=== PATIENT | male | born 1960 | race Caucasian/White ===

== ENCOUNTER 2020-01-14 18:18 | Observation (INO) ==
[2020-01-14 18:44] LABS: Basophils # (auto) 0.06 K/uL (0-0.2); Basophils % (auto) 0.4 %; Eosinophils # (auto) 0.45 K/uL (0-0.5); Eosinophils % (auto) 3.1 %; Hematocrit (blood only) 40.5 % (42-52); Immature Granulocytes # (auto) 0.04 K/uL (0.00-0.02); Immature Granulocytes % (auto) 0.3 %; Lymphocytes # (auto) 4.22 K/uL (1.2-3.4); Mean Corpuscular Hgb Conc 34.6 g/dL (32-36); Mean Corpuscular Volume 95.5 fL (80-100); Mean Platelet Volume 9.5 fL (7.4-10.4); Monocytes # (auto) 0.46 K/uL (0.11-0.59); Monocytes % (auto) 3.2 %; Neutrophils # (auto) 9.33 K/uL (1.4-6.5); Platelet Count 420 K/uL (130-400); RDW Coefficient of Variation 13.5 % (11.5-14.5); RDW Standard Deviation 46.7 fL (36.4-46.3); Red Blood Count 4.24 M/uL (4.7-6.1); White Blood Count 14.56 K/uL (4.8-10.8)
[2020-01-14] MEDS ORDERED: SODIUM CHLORIDE 0.9% 500 ML IV SCH (18:45)
[2020-01-14 19:00] LABS: Partial Thromboplastin Ratio 0.9; Partial Thromboplastin Time 26.3 Seconds (21.0-31.0); Prothrombin Time 10.2 Seconds (9.0-12.0)
[2020-01-14 19:01] LABS: Alanine Aminotransferase 16 U/L (12-78); Aspartate Aminotransferase 15 U/L (15-37); Blood Urea Nitrogen 16 mg/dl (7-18); Calcium 8.9 mg/dl (8.5-10.1); Carbon Dioxide 22 mmol/L (21-32); Chloride 107 mmol/L (98-107); Creatinine Clr Calc Pharmacy 70.5 ml/min; Est GFR (African American) 79.7; Est GFR (Non-African American) 68.8; Glucose 107 mg/dl (70-99); Magnesium 2.1 mg/dl (1.8-2.4); Potassium 3.7 mmol/L (3.5-5.1); Sodium 139 mmol/L (136-145)
--- NOTE | 2020-01-14 19:05 | XRay Report ---
SINGLE VIEW CHEST CLINICAL HISTORY: Generalized weakness. FINDINGS: An AP, portable, upright chest radiograph is compared to study dated 04/25/2019. The examina tion is degraded by portable technique and patient rotation. The cardiomediastinal silhouette is un remarkable. Chronic interstitial thickening is similar to previous. Emphysema is suspected. Apical sc arring is observed. There is bibasilar scarring/atelectasis. No airspace consolidation or large pleur al effusion is identified. No pneumothorax is seen. The bony thorax is grossly intact. IMPRESSION: No acute cardiopulmonary abnormality. ACT 112: Negative or not required by law. Electronically signed by: Joe Marin M.D. 01/14/2020 7:04 PM
[2020-01-14 19:12] LABS: Albumin Globulin Ratio 1.3 (0.9-2); Alkaline Phosphatase 88 U/L (45-117); Bilirubin,Total 0.5 mg/dl (0.2-1); Creatine Kinase 136 U/L (39-308); Globulin 3.1 gm/dl (2.5-4.0); Total Protein 7.1 gm/dl (6.4-8.2); Troponin I < 0.015 ng/ml (0-0.045)
[2020-01-14 19:16] LABS: RBC Morphology Unremarkable
--- NOTE | 2020-01-14 19:52 | Emergency Department Note ---
Impression & Plan Weakness, Cervical disc disease, Cervical disc herniation ED Provider Note NAME: ROSALIE HUYNH AGE: 59 SEX: M : 1960 ARRIVES VIA: Walk-In INFORMANT: Patient, ED PROVIDER(S): Neto Atkins DO CHIEF COMPLAINT: Weakness HPI: The patient is a 59-year-old male who presented to the emergency department for an evaluation of generalized weakness. The patient was brought directly back from triage for concerns of possible stroke however the patient appears to have generalized weakness in both upper and lower extremities. The patient has a known history of cervical disc disease. His significant other gives part of the history and states that he was walking normally when he had an acute change in his strength. He was on the ground and unable to stand. The patient does not remember the exact episode and may have had a syncopal episode. He denies having any headache. He denies having any chest pain or difficulty breathing. He denies having any low back pain but does have neck pain. He complains of generalized weakness. He denies having any specific burning or paresthesias but does state that his arms and legs just "does not feel right". The patient states his symptoms have been constant ever since onset. He has not had similar symptoms in the past. He denies having any fever. He denies having any recent trauma. ROS: See above HPI for pertinent positives & negatives. A total of 10 systems reviewed and were otherwise negative. PAST MEDICAL HISTORY: See Below PAST SURGICAL HISTORY: See Below FAMILY HISTORY: See Below SOCIAL HISTORY: See Below HOME MEDICATIONS: See Below ALLERGIES: See Below VITALS: See Below PHYSICAL EXAMINATION: GENERAL: The patient is awake and alert. He is very anxious appearing and appears to be uncomfortable. EYES: The conjunctivae are clear. The pupils are round and reactive. EARS, NOSE, MOUTH AND THROAT: The nose is without any evidence of any deformity. Mucous membranes are moist. Tongue is midline. NECK: There is cervical spine tenderness in the midline low cervical spine. RESPIRATORY: Normal respiratory effort is noted there is no evidence of wheezing rhonchi or rales CARDIOVASCULAR: Regular rate and rhythm noted there no murmurs rubs or gallops normal S1 normal S2. GASTROINTESTINAL: The abdomen is soft. Abdomen is nontender. MUSCULOSKELETAL/EXTREMITIES: There is no evidence of gross deformity full range of motion is noted in the hips and shoulders. SKIN: There is no obvious evidence of any rash. There are no petechiae, pallor or cyanosis noted. NEUROLOGIC: Patient is awake alert and oriented x3. 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 Patient has bilateral drift. No facial droop was noted. Patellar tendon reflexes are absent bilaterally. Patient is able to hold each leg off the bed for less than 5 seconds. MEDICAL DECISION MAKING: The patient is a 59-year-old male who presented to the emergency department for an evaluation of generalized weakness. The patient had weakness in both upper and lower extremities. The patient has a history of cervical disc disease. He is scheduled for a follow-up appointment and surgery with Dr. Govea for cervical disc disease. This evening he had a very significant episode where he had overall body weakness in the upper and lower extremities. He was brought back to the room immediately for possible stroke. The patient was treated with Decadron in the emergency department. The patient's case was discussed with the on-call [facility] hospitalist. They will evaluate the patient in the emergency department for further management and disposition. Ultimately the patient may require evaluation by orthopedic spine and possible surgical intervention. Triage Nursing notes reviewed. Prior medical records reviewed Vital Signs: reviewed and remarkable for pretension Differential diagnosis: Infection, dehydration, metabolic abnormality, hypo/hyperglycemia, electrolyte disturbance, anemia, hypoxia, cardiac sources, intracerebral event, toxicologic, neurologic, as well as other pathologies. ER treatment provided: See below Diagnostics interpreted by me: ECG: EKG was obtained in the emergency department. My interpretation is normal sinus rhythm at 90 bpm. There was no ectopy. There is no acute ST segment abnormalities noted. This was compared to a tracing from 04/25/2019. No signi ficant changes were noted. Cardiac Monitoring: An order was placed for continuous cardiac monitoring. The monitor shows a rate of 82 with sinus rhythm. Laboratory studies: As stated above and show below. Imaging studies: See below Consultation(s): [id number]: I discussed this case with Dr. Bateman. He will evaluate the patient in the emergency department for further management and disposition. ED COURSE: Procedures: none PDMP:reviewed and no issues Critical Care: None Past Med/Surg History Medical History Anxiety Cardiac murmur does not follow w/ cardio; no echo COPD (chronic obstructive pulmonary disease) no INH Current smoker 2 ppd GERD (gastroesophageal reflux disease) Glaucoma History of migraine HTN (hypertension) Surgical History History of eyelid surgery History of surgery mult benign tumors removed from neck History of surgery benign growth removed from RLE History of tooth extraction History of vocal cord polypectomy Family History Father Cancer Myocardial infarction Social History Smoking Status: Current every day smoker packs per day: 2; Cigarettes Per Day: 40; Second Hand Exposure: Yes; Do You Dip or Chew Tobacco: No; Tobacco Cessation Education Requested by Patient: No Hx Alcohol Use: No Hx Substance Use: No Preferred Language: Puerto Rican Communication Ability: Effective 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 Beliefs That Will Affect Care: None Current Living Situation: Spouse Feels Safe at Home: Yes Safety Concerns: Feels Safe At This Time Allergies Allergies Allergy/AdvReac Type Severity Reaction Status Date / Time No Known Allergies Allergy Verified 01/14/20 19:24 Home Meds Home Medications Medication Instructions Recorded Confirmed latanoprost 1 drp OPB HS 04/25/19 01/14/20 omeprazole 20 mg PO QAM 04/25/19 01/14/20 timolol maleate 1 drp OPL QAM 04/25/19 01/14/20 lisinopril 30 mg PO QAM 01/10/20 01/14/20 acetaminophen [Tylenol 8 Hour] 650 mg PO DIRECTED PRN 01/14/20 01/14/20 gabapentin 300 mg PO HS 01/14/20 01/14/20 ibuprofen [Advil] 400 mg PO Q6H PRN 01/14/20 01/14/20 Previous Rx's Medication Instructions Recorded methylprednisolone See Rx Instructions .ROUTE 01/15/20 .COMPLEX #23 tab Results & Data (ED) Vital Signs Vital Signs - 24 hr 01/14/20 18:26 01/14/20 18:52 01/14/20 18:54 Temperature 36.6 C Temperature Source Oral Pulse Rate 100 H 87 Pulse Rate [Apical] 92 H Pulse Rate from SpO2 Sensor 87 Pulse Rhythm Regular Pulse Strength Normal Respiratory Rate 18 18 25 H Respiratory Effort / Characteristics Non-Labored Spontaneous Respiratory Depth Normal Respiratory Pattern Regular Blood Pressure 117/81 129/82 Blood Pressure [Left Arm] 129/82 Blood Pressure [Right Arm] Blood Pressure Mean 93 96 Blood Pressure Mean [Left Arm] 97 Blood Pressure Mean [Right Arm] Blood Pressure Position Sitting Pulse Oximetry 95 95 95 Oxygen Delivery Method Room Air Sepsis Recent Fever Within 48 Hours No Sepsis New/Unexplained Change in Mental Status N/A Sepsis Action Taken by Nursing No Action Required 01/14/20 19:00 01/14/20 19:30 01/14/20 20:00 Temperature Temperature Source Pulse Rate 87 85 Pulse Rate [Apical] Pulse Rate from SpO2 Sensor 88 84 79 Pulse Rhythm Pulse Strength Respiratory Rate 21 18 Respiratory Effort / Characteristics Respiratory Depth Respiratory Pattern Blood Pressure 124/80 130/83 142/87 H Blood Pressure [Left Arm] Blood Pressure [Right Arm] Blood Pressure Mean 85 90 96 Blood Pressure Mean [Left Arm] Blood Pressure Mean [Right Arm] Blood Pressure Position Pulse Oximetry 95 95 96 Oxygen Delivery Method Room Air Sepsis Recent Fever Within 48 Hours Sepsis New/Unexplained Change in Mental Status Sepsis Action Taken by Nursing 01/14/20 21:33 Temperature Temperature Source Pulse Rate Pulse Rate [Apical] 85 Pulse Rate from SpO2 Sensor Pulse Rhythm Pulse Strength Respiratory Rate 18 Respiratory Effort / Characteristics Respiratory Depth Respiratory Pattern Blood Pressure Blood Pressure [Left Arm] Blood Pressure [Right Arm] 154/98 H Blood Pressure Mean Blood Pressure Mean [Left Arm] Blood Pressure Mean [Right Arm] 116 Blood Pressure Position Pulse Oximetry 96 Oxygen Delivery Method Room Air Sepsis Recent Fever Within 48 Hours Sepsis New/Unexplained Change in Mental Status Sepsis Action Taken by [facility] Medications Current Medication List: was personally reviewed by me Laboratory Data Attestation: I reviewed the patient's lab results. Result diagrams: 01/14/20 18:35 01/14/20 18:35 Lab Results 01/14/20 01/14/20 01/14/20 Range/Units 18:35 18:35 18:35 WBC 14.56 H (4.8-10.8) K/uL RBC 4.24 L (4.7-6.1) M/uL Hgb 14.0 (14.0-18.0) g/dL Hct 40.5 L (42-52) % MCV 95.5 (80-100) fL MCH 33.0 (25-34) pg MCHC 34.6 (32-36) g/dL RDW Std Deviation 46.7 H (36.4-46.3) fL RDW Coeff of Ryan 13.5 (11.5-14.5) % Plt Count 420 H (130-400) K/uL MPV 9.5 (7.4-10.4) fL Immature Gran % (Auto) 0.3 % Neut % (Auto) 64.0 % Lymph % (Auto) 29.0 % [place] % (Auto) 3.2 % Eos % (Auto) 3.1 % Baso % (Auto) 0.4 % Neut # (Auto) 9.33 H (1.4-6.5) K/uL Lymph # (Auto) 4.22 H (1.2-3.4) K/uL [place] # (Auto) 0.46 (0.11-0.59) K/uL Eos # (Auto) 0.45 (0-0.5) K/uL Baso # (Auto) 0.06 (0-0.2) K/uL Immature Gran # (Auto) 0.04 H (0.00-0.02) K/uL RBC Morphology Unremarkable ESR (0-14) mm/hr PT 10.2 (9.0-12.0) Seconds INR 1.0 (0.9-1.1) APTT 26.3 (21.0-31.0) Seconds PTT Ratio 0.9 Sodium 139 (136-145) mmol/L Potassium 3.7 (3.5-5.1) mmol/L Chloride 107 (98-107) mmol/L Carbon Dioxide 22 (21-32) mmol/L Anion Gap 10.0 (3-11) BUN 16 (7-18) mg/dl Creatinine 1.15 (0.6-1.4) mg/dl Est Cr Clr Drug Dosing 70.5 ml/min Est GFR ( Amer) 79.7 Est GFR (Non-Af Amer) 68.8 BUN/Creatinine Ratio 14.0 (10-20) Glucose 107 H (70-99) mg/dl Calcium 8.9 (8.5-10.1) mg/dl Magnesium 2.1 (1.8-2.4) mg/dl Total Bilirubin 0.5 (0.2-1) mg/dl AST 15 (15-37) U/L ALT 16 (12-78) U/L Alkaline Phosphatase 88 (45-117) U/L Total Creatine Kinase 136 (39-308) U/L Troponin I < 0.015 (0-0.045) ng/ml C-Reactive Protein (0-0.29) mg/dl Total Protein 7.1 (6.4-8.2) gm/dl Albumin 4.0 (3.4-5.0) gm/dl Globulin 3.1 (2.5-4.0) gm/dl Albumin/Globulin Ratio 1.3 (0.9-2) Procalcitonin (0-0.5) ng/ml TSH 1.980 (0.300-4.500) uIu/ml Hepatitis C Ab Screen (Neg) 01/14/20 01/14/20 01/14/20 Range/Units 18:35 18:35 18:35 WBC (4.8-10.8) K/uL RBC (4.7-6.1) M/uL Hgb (14.0-18.0) g/dL Hct (42-52) % MCV (80-100) fL MCH (25-34) pg MCHC (32-36) g/dL RDW Std Deviation (36.4-46.3) fL RDW Coeff of Ryan (11.5-14.5) % Plt Count (130-400) K/uL MPV (7.4-10.4) fL Immature Gran % (Auto) % Neut % (Auto) % Lymph % (Auto) % [place] % (Auto) % Eos % (Auto) % Baso % (Auto) % Neut # (Auto) (1.4-6.5) K/uL Lymph # (Auto) (1.2-3.4) K/uL [place] # (Auto) (0.11-0.59) K/uL Eos # (Auto) (0-0.5) K/uL Baso # (Auto) (0-0.2) K/uL Immature Gran # (Auto) (0.00-0.02) K/uL RBC Morphology ESR 8 (0-14) mm/hr PT (9.0-12.0) Seconds INR (0.9-1.1) APTT (21.0-31.0) Seconds PTT Ratio Sodium (136-145) mmol/L Potassium (3.5-5.1) mmol/L Chloride (98-107) mmol/L Carbon Dioxide (21-32) mmol/L Anion Gap (3-11) BUN (7-18) mg/dl Creatinine (0.6-1.4) mg/dl Est Cr Clr Drug Dosing ml/min Est GFR ( Amer) Est GFR (Non-Af Amer) BUN/Creatinine Ratio (10-20) Glucose (70-99) mg/dl Calcium (8.5-10.1) mg/dl Magnesium (1.8-2.4) mg/dl Total Bilirubin (0.2-1) mg/dl AST (15-37) U/L ALT (12-78) U/L Alkaline Phosphatase (45-117) U/L Total Creatine Kinase (39-308) U/L Troponin I (0-0.045) ng/ml C-Reactive Protein < 0.29 (0-0.29) mg/dl Total Protein (6.4-8.2) gm/dl Albumin (3.4-5.0) gm/dl Globulin (2.5-4.0) gm/dl Albumin/Globulin Ratio (0.9-2) Procalcitonin < 0.05 (0-0.5) ng/ml TSH (0.300-4.500) uIu/ml Hepatitis C Ab Screen (Neg) 01/14/20 Range/Units 18:35 WBC (4.8-10.8) K/uL RBC (4.7-6.1) M/uL Hgb (14.0-18.0) g/dL Hct (42-52) % MCV (80-100) fL MCH (25-34) pg MCHC (32-36) g/dL RDW Std Deviation (36.4-46.3) fL RDW Coeff of Ryan (11.5-14.5) % Plt Count (130-400) K/uL MPV (7.4-10.4) fL Immature Gran % (Auto) % Neut % (Auto) % Lymph % (Auto) % [place] % (Auto) % Eos % (Auto) % Baso % (Auto) % Neut # (Auto) (1.4-6.5) K/uL Lymph # (Auto) (1.2-3.4) K/uL [place] # (Auto) (0.11-0.59) K/uL Eos # (Auto) (0-0.5) K/uL Baso # (Auto) (0-0.2) K/uL Immature Gran # (Auto) (0.00-0.02) K/uL RBC Morphology ESR (0-14) mm/hr PT (9.0-12.0) Seconds INR (0.9-1.1) APTT (21.0-31.0) Seconds PTT Ratio Sodium (136-145) mmol/L Potassium (3.5-5.1) mmol/L Chloride (98-107) mmol/L Carbon Dioxide (21-32) mmol/L Anion Gap (3-11) BUN (7-18) mg/dl Creatinine (0.6-1.4) mg/dl Est Cr Clr Drug Dosing ml/min Est GFR ( Amer) Est GFR (Non-Af Amer) BUN/Creatinine Ratio (10-20) Glucose (70-99) mg/dl Calcium (8.5-10.1) mg/dl Magnesium (1.8-2.4) mg/dl Total Bilirubin (0.2-1) mg/dl AST (15-37) U/L ALT (12-78) U/L Alkaline Phosphatase (45-117) U/L Total Creatine Kinase (39-308) U/L Troponin I (0-0.045) ng/ml C-Reactive Protein (0-0.29) mg/dl Total Protein (6.4-8.2) gm/dl Albumin (3.4-5.0) gm/dl Globulin (2.5-4.0) gm/dl Albumin/Globulin Ratio (0.9-2) Procalcitonin (0-0.5) ng/ml TSH (0.300-4.500) uIu/ml Hepatitis C Ab Screen Neg (Neg) Administered Medications Discontinued Medications Dexamethasone (Decadron) 10 mg IV NOW STA Stop: 01/14/20 21:05 Last Admin: 01/14/20 21:34 Dose: 10 mg Documented by: [id number] Heparin Sodium (Porcine) (Heparin Sodium (Porcine)) 5,000 units SQ Q12 [facility]AMAINE Stop: 02/14/20 08:59 Last Admin: 01/15/20 09:00 Dose: Not Given Documented by: [id number] Sodium Chloride (Nss) 500 mls @ 999 mls/hr IV .Q31M [facility]AMAINE Stop: 01/14/20 19:15 Last Infusion: 01/14/20 19:27 Dose: 0 mls/hr Documented by: [id number] Admin: 01/14/20 18:56 Dose: 999 mls/hr Documented by: [id number] Famotidine 20 mg/ Syringe 5 mls @ 2.5 mls/min IV Q12H [facility]AMAINE Stop: 02/14/20 08:59 Last Admin: 01/15/20 09:04 Dose: 2.5 mls/min Documented by: [id number] Potassium Chloride/Sodium Chloride (Normal Saline W/20 Meq Kcl) 20 meq in 1,000 mls @ 100 mls/hr IV .Q10H [facility]AMAINE Stop: 02/14/20 00:46 Last Infusion: 01/15/20 13:52 Dose: 0 mls/hr Documented by: [id number] Admin: 01/15/20 10:44 Dose: 100 mls/hr Documented by: [id number] Infusion: 01/15/20 10:44 Dose: 100 mls/hr Documented by: [id number] Admin: 01/15/20 01:04 Dose: 100 mls/hr Documented by: [id number] Dexamethasone Sodium Phosphate (6 mg/ Syringe) 1.5 mls @ 1 mls/min IV Q6H [facility] Stop: 02/14/20 03:59 Last Admin: 01/15/20 09:00 Dose: 1 mls/min Documented by: [id number] Admin: 01/15/20 04:09 Dose: 1 mls/min Documented by: [id number] Pantoprazole Sodium (Protonix) 40 mg PO QAM [facility] Stop: 02/14/20 08:59 Last Admin: 01/15/20 08:52 Dose: 40 mg Documented by: [id number] Timolol Maleate (Timoptic 0.25% Oph) 1 drops OPL QA [facility] Stop: 02/14/20 08:59 Last Admin: 01/15/20 08:51 Dose: 1 drops Documented by: [id number] Imaging Data Radiologist's Impression: Preliminary Findings Only See Final Report For Complete Findings MRI HEAD : No ICH, mass effect or edema. No foci of acute ischemia. No abnormal foci of signal or enhancement in the brain parenchyma. Radiologist: Soy Brunner MD Study ready at 20:45 and initial results transmitted at 21:05 [place], [place] [phone] Magnetic Resonance Report Patient: ROSALIE HUYNH Date: 01/14/20 MR#: [id number] Acct ID:[id number]: Date: 1960City Zip: [place] [address] Age: 59Location: 3W Sex: M Room/Bed: [facility] Att Phy: Ana Maria Guthrie MDDiagnosis: UPPER AND LOWER EXTREMITY WEAKNESS / NUMBNESS Crissy Phy: Gerard Barnes-CService Date: 01/14/20 Fam Phy:Interpreting Phy: Zane Li MD Admit Phy: Ryan Tobias M.D. Ordering Phy: Neto Atkins DO cc: ~ MR cervical spine wo con HISTORY: Pain. Neuropathy. weakn TECHNIQUE: Multiplanar multisequence MRI of the cervical spine was performed without the use of contrast. COMPARISON STUDY: None. FINDINGS: Normal signal characteristics of the vertebral bodies. Mild degenerative disc change throughout. C2-C3: No significant central canal or neural foraminal narrowing. C3-C4: No significant central canal or neural foraminal narrowing. C4-C5: Minimal broad-based disc bulge. Mild narrowing right neural foramina. C5-C6: Minimal broad-based disc bulge. Contact with but no significant deformity of the cervical cord. Moderate narrowing of the neural foramina bilaterally. C6-C7: Minimal broad-based disc bulge. Moderate narrowing of the neural foramina bilaterally. C7-T1: No significant central canal or neural foraminal narrowing. IMPRESSION: 1. No evidence for major disc herniation or high-grade spinal stenosis. 2. Broad-based bulging disc C4-C5, C5-C6, and C6-C7 with mild narrowing of the neural foramina as described. ACT 112: Negative or not required by law. The above report was generated using voice recognition software. It may contain grammatical, syntax or spelling errors. Electronically signed by: Zane Li M.D. 01/15/2020 8:15 AM Dictated: 01/15/20811 Transcribed: 01/15/20811 Blood Pressure Blood Pressure Findings: Normal blood pressure Blood Pressure Disposition: further management by hospitalist Discharge Plan Visit Data *Final* Discharge Date/Time: 01/15/20 00:09 Chief Complaint: Illness Stated Complaint: LEGS NUMB, WEAKNESS, VOMITING ED Provider: Jose Simon Discharge Problem: Weakness, Cervical disc disease, Cervical disc herniation Patient Disposition: Admitted As Inpatient Condition: Good Discharge Instructions Interventions: ED Discharge Assessment Last Done: 01/15/20 00:09
--- NOTE | 2020-01-14 20:55 | Emergency Department Note ---
ED Visit Note 2053: Signout from Dr. Atkins. 59-year-old male with weakness. White blood cell count 14. Vital signs stable. Follow-up MRI head and C-spine. Patient is known to Dr. Xuan gray and is scheduled for surgery in January with him for cervical radiculopathy. 2199: Vital signs stable. MRI shows: PreliminaryFindingsOnly See Final Report For Complete Findings MRI C SPINE : Marrowsignal iswithin normal limits. No fracture or malalignment. Cord signal is normal. No epidural fluid collection. Mild to moderate degenerative changes most pronounced at C5-6 and C6-7. Paraspinous soft tissues are unremarkable. Radiologist: Soy Brunner MD Study ready at 21:20 and initial results transmitted at 21:32 PreliminaryFindingsOnly See Final Report For Complete Findings MRI HEAD : No ICH, mass effect or edema. No foci of acute ischemia. No abnormal foci of signal or enhancement in the brain parenchyma. Radiologist: Soy Brunner MD Study ready at 20:45 and initial results transmitted at 21:05 Discussed the case with [facility] hospitalist Dr. Redd who admitted the patient. .
[2020-01-14] MEDS ORDERED: DEXAMETHASONE SOD INJ 4 MG/ML VIAL IV STA (21:04)
--- NOTE | 2020-01-14 21:41 | History & Physical Report ---
Date of Service January 14, 2020 Assessment & Plan (1) Weakness of distal arms and legs: Acute onset of numbness, tingling and weakness of upper and lower extremities of both sides- No loss of bowel or bladder control Symptoms are slowly improving while in the ED. Has surgery scheduled with orthopedic spine surgery Dr. Govea in January for known cervical disc disease. MRI of cervical spine with intraoperative signal at C5-6, C6-7. Placed on Decadron 10 mg IV x1 now and then 6 mg IV every 6 hours. N.p.o. after midnight Zofran 4 mg IV every 6 hours as needed Present on Admission?: Yes (2) Numbness and tingling of upper and lower extremities of both sides: See above Present on Admission?: Yes (3) Cervical disc herniation: See above Present on Admission?: Yes (4) Cervical disc disease: See above Present on Admission?: Yes (5) GERD (gastroesophageal reflux disease): Continue omeprazole 20 mg p.o. daily Present on Admission?: Yes (6) HTN (hypertension): Continue lisinopril 30 mg p.o. daily with hold parameters Present on Admission?: Yes (7) Glaucoma: Continue timolol maleate 1 drop OPL every morning Present on Admission?: Yes History of Present Illness Chief Complaint: The patient presented to the emergency department to the symptoms of acute onset of upper and lower extremity weakness while on the commode, falling to the floor, and requiring help to get up since he could not on his own. Primary Care Provider: Gerard Barnes The patient is a 59-year-old male with a past medical history including cervical degenerative disc disease, cervical disc herniation, who is scheduled for upcoming surgery with Dr. Govea in January. He had the acute onset of upper and lower extremity weakness while on the commode, had gone to the floor, and was too weak to pull himself up, requiring help from his and others. At this time in the ED, he reports that his symptoms are slowly improving, he is it he is able to lift his legs now, but does still report some persistence of numbn ess in upper and lower extremities bilaterally. He has not had any recent travels or sick exposures. He has not had any injuries. Allergies Allergy/AdvReac Type Severity Reaction Status Date / Time No Known Allergies Allergy Verified 01/14/20 19:24 Home Medications Home Medications Medication Instructions Recorded Confirmed Type latanoprost 1 drp OPB HS 04/25/19 01/14/20 History omeprazole 20 mg PO QAM 04/25/19 01/14/20 History timolol maleate 1 drp OPL QAM 04/25/19 01/14/20 History lisinopril 30 mg PO QAM 01/10/20 01/14/20 History acetaminophen [Tylenol 8 Hour] 650 mg PO DIRECTED PRN 01/14/20 01/14/20 History gabapentin 300 mg PO HS 01/14/20 01/14/20 History ibuprofen [Advil] 400 mg PO Q6H PRN 01/14/20 01/14/20 History Past Med/Surg History Medical History Anxiety Cardiac murmur does not follow w/ cardio; no echo COPD (chronic obstructive pulmonary disease) no INH Current smoker 2 ppd GERD (gastroesophageal reflux disease) Glaucoma History of migraine HTN (hypertension) Surgical History History of eyelid surgery History of surgery mult benign tumors removed from neck History of surgery benign growth removed from RLE History of tooth extraction History of vocal cord polypectomy Family History Father Cancer Myocardial infarction Social History Smoking Status: Current every day smoker packs per day: 2; Cigarettes Per Day: 2 ppd; Second Hand Exposure: Yes; Hx Alcohol Use: No Hx Substance Use: No Preferred Language: Slovenian Communication Ability: Effective Wall Insulation Sprayer Required: No Beliefs That Will Affect Care: None Current Living Situation: Spouse Feels Safe at Home: Yes Review of Systems Review of Systems: The patient denies chest pain, palpitations, shortness of breath, dyspnea on exertion, cough, lower extremity swelling, sore throat, fevers, chills, sweats, nausea, vomiting, diarrhea , constipation, abdominal pain, pelvic pain, blood in urine or stool, dysuria, urinary frequency or urgency, rash, abnormal bruising or bleeding, generalized arthralgias or myalgias, or night sweats. The review of systems is otherwise negative other than for that already noted above, and at least 10 systems have been reviewed. Physical Exam Physical Exam: The patient is awake, alert and oriented 3, well developed and well nourished, normocephalic and atraumatic, lying in bed and in no acute distress. HEENT--PERRL, EOMI, mucous membranes and oropharynx normal. Neck--supple. No JVD. No bruits. Thyroid normal, trachea midline, no adenopathy. Heart--normal S1 and S2. No murmurs, rubs or gallops. Lungs--clear bilaterally, no respiratory distress, no accessory muscle use. Abdomen--normal bowel sounds and soft. Nontender. Nondistended, no hernias or masses, no organomegaly. Extremities--no cyanosis or clubbing. No edema. There are good distal pulses b/l. Dermatologic--normal skin turgor, normal color, no abnormal lymph nodes, no rash. Neurologic--cranial nerves II through XII grossly intact. Motor strength 5/5 upper and lower extremities bilaterally. Sensation intact Rheumatologic--normal range of motion. Psychiatric--normal affect. Results & Data Results & Data ([facility]) Vital Signs (Past 12 Hours) Vital Signs Temp Pulse Pulse Resp BP BP BP 01/14/20 21:33 85 18 154/98 H 01/14/20 20:00 142/87 H 01/14/20 19:30 85 18 130/83 01/14/20 19:00 87 21 124/80 01/14/20 18:54 92 H 25 H 129/82 01/14/20 18:52 87 18 129/82 01/14/20 18:26 97.9 F 100 H 18 117/81 Pulse Ox 01/14/20 21:33 96 01/14/20 20:00 96 01/14/20 19:30 95 01/14/20 19:00 95 01/14/20 18:54 95 01/14/20 18:52 95 01/14/20 18:26 95 Laboratory Results Laboratory Results WBC 14.56 K/uL (4.8-10.8) H 01/14/20 18:35 RBC 4.24 M/uL (4.7-6.1) L 01/14/20 18:35 Hgb 14.0 g/dL (14.0-18.0) 01/14/20 18:35 Hct 40.5 % (42-52) L 01/14/20 18:35 MCV 95.5 fL (80-100) 01/14/20 18:35 MCH 33.0 pg (25-34) 01/14/20 18:35 MCHC 34.6 g/dL (32-36) 01/14/20 18:35 RDW Std Deviation 46.7 fL (36.4-46.3) H 01/14/20 18:35 RDW Coeff of Ryan 13.5 % (11.5-14.5) 01/14/20 18:35 Plt Count 420 K/uL (130-400) H 01/14/20 18:35 MPV 9.5 fL (7.4-10.4) 01/14/20 18:35 Immature Gran % (Auto) 0.3 % 01/14/20 18:35 Neut % (Auto) 64.0 % 01/14/20 18:35 Lymph % (Auto) 29.0 % 01/14/20 18:35 [place] % (Auto) 3.2 % 01/14/20 18:35 Eos % (Auto) 3.1 % 01/14/20 18:35 Baso % (Auto) 0.4 % 01/14/20 18:35 Neut # (Auto) 9.33 K/uL (1.4-6.5) H 01/14/20 18:35 Lymph # (Auto) 4.22 K/uL (1.2-3.4) H 01/14/20 18:35 [place] # (Auto) 0.46 K/uL (0.11-0.59) 01/14/20 18:35 Eos # (Auto) 0.45 K/uL (0-0.5) 01/14/20 18:35 Baso # (Auto) 0.06 K/uL (0-0.2) 01/14/20 18:35 Immature Gran # (Auto) 0.04 K/uL (0.00-0.02) H 01/14/20 18:35 RBC Morphology Unremarkable 01/14/20 18:35 ESR 8 mm/hr (0-14) 01/14/20 18:35 PT 10.2 Seconds (9.0-12.0) 01/14/20 18:35 INR 1.0 (0.9-1.1) 01/14/20 18:35 APTT 26.3 Seconds (21.0-31.0) 01/14/20 18:35 PTT Ratio 0.9 01/14/20 18:35 Sodium 139 mmol/L (136-145) 01/14/20 18:35 Potassium 3.7 mmol/L (3.5-5.1) 01/14/20 18:35 Chloride 107 mmol/L (98-107) 01/14/20 18:35 Carbon Dioxide 22 mmol/L (21-32) 01/14/20 18:35 Anion Gap 10.0 (3-11) 01/14/20 18:35 BUN 16 mg/dl (7-18) 01/14/20 18:35 Creatinine 1.15 mg/dl (0.6-1.4) 01/14/20 18:35 Est Cr Clr Drug Dosing 70.5 ml/min 01/14/20 18:35 Est GFR ( Amer) 79.7 01/14/20 18:35 Est GFR (Non-Af Amer) 68.8 01/14/20 18:35 BUN/Creatinine Ratio 14.0 (10-20) 01/14/20 18:35 Glucose 107 mg/dl (70-99) H 01/14/20 18:35 Calcium 8.9 mg/dl (8.5-10.1) 01/14/20 18:35 Magnesium 2.1 mg/dl (1.8-2.4) 01/14/20 18:35 Total Bilirubin 0.5 mg/dl (0.2-1) 01/14/20 18:35 AST 15 U/L (15-37) 01/14/20 18:35 ALT 16 U/L (12-78) 01/14/20 18:35 Alkaline Phosphatase 88 U/L (45-117) 01/14/20 18:35 Total Creatine Kinase 136 U/L (39-308) 01/14/20 18:35 Troponin I < 0.015 ng/ml (0-0.045) 01/14/20 18:35 C-Reactive Protein < 0.29 mg/dl (0-0.29) 01/14/20 18:35 Total Protein 7.1 gm/dl (6.4-8.2) 01/14/20 18:35 Albumin 4.0 gm/dl (3.4-5.0) 01/14/20 18:35 Globulin 3.1 gm/dl (2.5-4.0) 01/14/20 18:35 Albumin/Globulin Ratio 1.3 (0.9-2) 01/14/20 18:35 Procalcitonin < 0.05 ng/ml (0-0.5) 01/14/20 18:35 TSH 1.980 uIu/ml (0.300-4.500) 01/14/20 18:35 Diagnostic Findings [place], [place] [phone] XRay Report Patient: ROSALIE HUYNH Date: 01/14/20 MR#: [id number]: [address] [facility] Acct ID:[id number]: Date: 1960[facility] Zip: [place] [address] Age: 59Location: ED Sex: M Room/Bed: Att Phy:Diagnosis: LEGS NUMB, WEAKNESS, VOMITING Crissy Phy: Gerard Barnes-CService Date: 01/14/20 Fam Phy:Interpreting Phy: Joe Marin MD Admit Phy: Ordering Phy: Neto Atkins DO cc: ~ SINGLE VIEW CHEST CLINICAL HISTORY: Generalized weakness. FINDINGS: An AP, portable, upright chest radiograph is compared to study dated 04/25/2019. The examination is degraded by portable technique and patient rotation. The cardiomediastinal silhouette is unremarkable. Chronic interstitial thickening is similar to previous. Emphysema is suspected. Apical scarring is observed. There is bibasilar scarring/atelectasis. No airspace consolidation or large pleural effusion is identified. No pneumothorax is seen. The bony thorax is grossly intact. IMPRESSION: No acute cardiopulmonary abnormality. ACT 112: Negative or not required by law. Electronically signed by: Joe Marin M.D. 01/14/2020 7:04 PM Dictated: 01/14/201902 Transcribed: 01/14/201902 [facility] Patient: ROSALIE HUYNH (Male) : 58 Status: ER Date: 01/14/20 20:42 Room #: History: this evening got cold sweats vomiting entire body numbness and weaknesspain from neck to left elbow Slices: 126 Priors: Tech: Meli Dorsey @ [phone] Exams: MRI HEAD Accession Numbers: [id number] Preliminary Findings Only See Final Report For Complete Findings MRI HEAD : No ICH, mass effect or edema. No foci of acute ischemia. No abnormal foci of signal or enhancement in the brain parenchyma. Radiologist: Soy Brunner MD Study ready at 20:45 and initial results transmitted at 21:05 *This report constitutes a preliminary interpretation only. Non-acute findings felt to be unrelated to the clinical presentation may not be discussed in this report. The study will be interpreted and a final report will be generated by the local Radiologist the following shift. To reach the hospital radiology department call [phone]. If a discrepancy is found between the preliminary and final interpretations of this study, please notify us via our Client Portal at [email or web address].You can also fax this report with a description of the discrepancy, or include the final report, to our daytime fax number [phone].If faxing, please indicate the severity of discrepancy using one of the following categories: [ ] 1 - Agree/Informational [ ] 2 - Unlikely to Affect Management [ ] 3 - Possible Eventual Change of Management [ ] 4 - Probable Immediate Change of Management For all other patient related information, please fax us at [phone]. [id number] [facility] Patient: ROSALIE HUYNH (Male) : 58 Status: ER Date: 01/14/20 21:19 Room #: History: cold sweats vomiting numbness entire body weakness pain neck to left elbow Slices: 147 Priors: Tech: Meli Dorsey @ [id number] Exams: MRI C SPINE Accession Numbers: [id number] Preliminary Findings Only See Final Report For Complete Findings MRI C SPINE : Marrow signal is within normal limits. No fracture or malalignment. Cord signal is normal. No epidural fluid collection. Mild to moderate degenerative changes most pronounced at C5-6 and C6-7. Paraspinous soft tissues are unremarkable. Radiologist: Soy Brunner MD Study ready at 21:20 and initial results transmitted at 21:32 *This report constitutes a preliminary interpretation only. Non-acute findings felt to be unrelated to the clinical presentation may not be discussed in this report. The study will be interpreted and a final report will be generated by the local Radiologist the following shift. To reach the hospital radiology department call [phone]. If a discrepancy is found between the preliminary and final interpretations of this study, please notify us via our Client Portal at [email or web address].You can also fax this report with a description of the discrepancy, or include the final report, to our daytime fax number [phone].If faxing, please indicate the severity of discrepancy using one of the following categories: [ ] 1 - Agree/Informational [ ] 2 - Unlikely to Affect Management [ ] 3 - Possible Eventual Change of Management [ ] 4 - Probable Immediate Change of Management For all other patient related information, please fax us at [phone]. [id number] Code Status & VTE Plan Code Status Full code VTE Prophylaxis Plan VTE Prophylaxis will be ordered: Yes PG Care Time/CCT Total # of Minutes Spent Total Time Spent with Patient: Total time spent is greater than 50% in coordination of care (as documented) at patient's floor/unit and/or counseling patient: Coding Level of Care Code 11948 Initial Inpt Care Lvl 3 Diagnoses Weakness of distal arms and legs R29.898 Numbness and tingling of upper and lower extremities of both sides R20.0; R20.2 Cervical disc herniation M50.20 Cervical disc disease M50.90 GERD (gastroesophageal reflux disease) K21.9 HTN (hypertension) I10 Glaucoma H40.9
[2020-01-15] MEDS ORDERED: NON-FORMULARY MEDICATION (Acetaminophen [Tylenol 8 Hour] 650 MG) PO PRN (00:47)
[2020-01-15] MEDS ORDERED: ONDANSETRON INJ 2 MG/ML 2 ML VIAL IV PRN (00:47)
[2020-01-15] MEDS ORDERED: ACETAMINOPHEN 325 MG TAB PO PRN (00:47)
[2020-01-15] MEDS: NSS + 20MEQ KCL 20 MEQ/1,000 ML BAG IV SCH ×2 (01:04→10:44)
[2020-01-15 02:07] LABS: Appearance Urine Clear (Clear); Bilirubin Urine Negative (Negative); Blood Urine Negative (Negative); Color Urine Dark Yellow; Glucose Urine UA Negative (Negative); Ketones Urine Trace (Negative); Leukocyte Esterase Urine Negative (Negative); Nitrite Urine Negative (Negative); Protein Urine Negative (Negative); Specific Gravity Urine 1.016 (1.000-1.030); Urobilinogen Urine Negative (Negative); pH Urine 5.5 (4.5-7.5)
[2020-01-15] MEDS ORDERED: DEXAMETHASONE **PF** INJ 10 MG/ML VIAL IV SCH (04:00)
[2020-01-15] MEDS: DEXAMETHASONE SOD PHOSPHATE 6 MG in SYRINGE 0 ML IV SCH ×2 (04:09→09:00)
--- NOTE | 2020-01-15 07:06 | Magnetic Resonance Report ---
MR brain wo con HISTORY: 59 years-old Male weakness acute vomiting with night sweats and weakness COMPARISON: MRI cervical spine of same day TECHNIQUE: Multiplanar multisequence MRI of the brain was obtained without the use of IV contrast. FINDINGS: Travel Counselor localizer images demonstrate no gross extracranial abnormality. There is no restricted diffusio n to suggest acute or subacute infarct. Midline structures including the corpus callosum, brainstem, optic chiasm, pituitary and pineal glands appear generally unremarkable in sagittal T1 series. Low-ly ing cerebellar tonsils extend 2 mm below the foramen magnum. Degenerative changes are noted involving the imaged cervical spine. There is no acute intracranial hemorrhage, midline shift, abnormal extra-axial collection, hydrocepha erin or intracranial mass. Mild patchy T2/FLAIR hyperintensities are noted within the white matter of the bilateral cerebral hemispheres. The major vascular flow voids appear patent. Minimal mucosal thic kening of the ethmoid and maxillary sinuses. The orbits, skull and soft tissues are unremarkable. IMPRESSION: 1. No acute intracranial abnormality, specifically there is no evidence of acute or subacute infarct. 2. Mild patchy T2/FLAIR hyperintensities throughout the white matter are nonspecific however statisti jose favor chronic microvascular ischemic changes. ACT 112: Negative or not required by law. The above report was generated using voice recognition software. It may contain grammatical, syntax o r spelling errors. Electronically signed by: Manuelito Piña M.D. 01/15/2020 7:04 AM
[2020-01-15 07:57] VITALS: TEMP 97.9; O2SAT 95
--- NOTE | 2020-01-15 08:16 | Magnetic Resonance Report ---
MR cervical spine wo con HISTORY: Pain. Neuropathy. weakn TECHNIQUE: Multiplanar multisequence MRI of the cervical spine was performed without the use of contr ast. COMPARISON STUDY: None. FINDINGS: Normal signal characteristics of the vertebral bodies. Mild degenerative disc change throug hout. C2-C3: No significant central canal or neural foraminal narrowing. C3-C4: No significant central canal or neural foraminal narrowing. C4-C5: Minimal broad-based disc bulge. Mild narrowing right neural foramina. C5-C6: Minimal broad-based disc bulge. Contact with but no significant deformity of the cervical cord . Moderate narrowing of the neural foramina bilaterally. C6-C7: Minimal broad-based disc bulge. Moderate narrowing of the neural foramina bilaterally. C7-T1: No significant central canal or neural foraminal narrowing. IMPRESSION: 1. No evidence for major disc herniation or high-grade spinal stenosis. 2. Broad-based bulging disc C4-C5, C5-C6, and C6-C7 with mild narrowing of the neural foramina as emre cribed. ACT 112: Negative or not required by law. The above report was generated using voice recognition software. It may contain grammatical, syntax or spelling errors. Electronically signed by: Zane Li M.D. 01/15/2020 8:15 AM
[2020-01-15] MEDS ORDERED: HEPARIN SOD 5,000 UNIT/0.5 ML VIAL SQ SCH (09:00)
[2020-01-15] MEDS ORDERED: TIMOLOL MALEATE 0.25% OP SOLN 5 ML BTL OPL SCH (09:00)
[2020-01-15] MEDS ORDERED: lisinopriL 10 MG TAB PO SCH (09:00)
[2020-01-15] MEDS ORDERED: PANTOprazole 40 MG TAB PO SCH (09:00)
[2020-01-15] MEDS ORDERED: FAMOTIDINE 20 MG in SYRINGE 3 ML IV SCH (09:00)
--- NOTE | 2020-01-15 12:49 | Orthopedic Consultation ---
Date of Consultation January 15, 2020 Assessment & Plan (1) Cervical stenosis of spinal canal: This time he is scheduled for anterior cervical discectomy and fusion in early January. I suggest that we maintain that date. He is relatively comfortable at this time. Of asked him that he discontinue work until surgery. From an orthopedic standpoint he is cleared to go home today. Present on Admission?: Yes History of Present Illness Reason for Consultation: Neck and left arm pain Attending Physician: Ana Maria Guthrie MD History of Present Illness This is a 59-year-old male well-known to me the presents with significant left arm pain. Numbness and tingling extending from the shoulder down to the elbow and into his fingers. Exacerbated with activity. Appears yesterday had almost a vasovagal incident. This does not appear to be related to any cervical spine pathology. He feels much better today. He still has the arm symptoms but this is been unchanged. Allergies Allergy/AdvReac Type Severity Reaction Status Date / Time No Known Allergies Allergy Verified 01/14/20 19:24 Home Medications Home Medications Medication Instructions Recorded Confirmed Type latanoprost 1 drp OPB HS 04/25/19 01/14/20 History omeprazole 20 mg PO QAM 04/25/19 01/14/20 History timolol maleate 1 drp OPL QAM 04/25/19 01/14/20 History lisinopril 30 mg PO QAM 01/10/20 01/14/20 History acetaminophen [Tylenol 8 Hour] 650 mg PO DIRECTED PRN 01/14/20 01/14/20 History gabapentin 300 mg PO HS 01/14/20 01/14/20 History ibuprofen [Advil] 400 mg PO Q6H PRN 01/14/20 01/14/20 History Patient History Medical History Anxiety Cardiac murmur does not follow w/ cardio; no echo COPD (chronic obstructive pulmonary disease) no INH Current smoker 2 ppd GERD (gastroesophageal reflux disease) Glaucoma History of migraine HTN (hypertension) Surgical History History of eyelid surgery History of surgery mult benign tumors removed from neck History of surgery benign growth removed from RLE History of tooth extraction History of vocal cord polypectomy Family History Father Cancer Myocardial infarction Social History Smoking Status: Current every day smoker packs per day: 2; Cigarettes Per Day: 40; Second Hand Exposure: Yes; Do You Dip or Chew Tobacco: No; Tobacco Cessation Education Requested by Patient: No Hx Alcohol Use: No Hx Substance Use: No Preferred Language: Algerian Communication Ability: Effective Cartoon Designer Required: No Beliefs That Will Affect Care: None Current Living Situation: Spouse Feels Safe at Home: Yes Safety Concerns: Feels Safe At This Time Physical Exam Physical Exam: On exam is able to 7 bed without difficulty. Is good strength testing. He is positive Spurling's to the left. No evidence of Angelo sign. Sensory appears to be symmetric and intact. There is a Tinel's over the left elbow. He had some strength testing lower extremities. Results & Data ([facility]) Vital Signs (Past 12 Hours) Vital Signs Temp Pulse Resp BP Pulse Ox 01/15/20 07:56 36.6 C 96 H 16 133/80 95
--- NOTE | 2020-01-15 13:06 | Hospitalist Progress Note ---
Date of Service January 15, 2020 Assessment & Plan (1) Cervical stenosis of spinal canal: Weakness of distal arms and legs: - MRI No evidence for major disc herniation or high-grade spinal stenosis, Broad-based bulging disc C4-C5, C5-C6, and C6-C7 with mild narrowing of the neural foramina as described. - Acute onset of numbness, tingling and weakness of upper and lower extremities of both sides- - No loss of bowel or bladder control - Symptoms are slowly improving while in the ED. - Has surgery scheduled with orthopedic spine surgery Dr. Govea in January for known cervical disc disease. - Placed on Decadron 10 mg IV x1 now and then 6 mg IV every 6 hours. 0 N.p.o. after midnight - Zofran 4 mg IV every 6 hours as needed Numbness and tingling of upper and lower extremities of both sides: - See above Cervical disc herniation: - See above GERD (gastroesophageal reflux disease): - Continue omeprazole 20 mg p.o. daily HTN (hypertension): - Continue lisinopril 30 mg p.o. daily with hold parameters Glaucoma - [employer] Continue timolol maleate 1 drop OP qAM (2) GERD (gastroesophageal reflux disease): (3) HTN (hypertension): (4) Numbness and tingling of upper and lower extremities of both sides: (5) Weakness of distal arms and legs: (6) Weakness: (7) Cervical disc disease: (8) Cervical disc herniation: Admission and Anticipated Discharge Date Admission Date: January 14, 2020 Review of Systems Review of Systems: Constitutional: Denies fever, chills, malaise, weight change Eyes: Denies double vision, vision change, eye pain ENT: Denies ear pain, sore throat, sinus pain Cardiovascular: Denies Chest pain, chest pressure, palpitations, extremity swelling Respiratory: Denies shortness of breath, cough, sputum production, difficulty breathing Gastrointestinal: Denies abdominal pain, nausea, vomiting, constipation, diarrhea Genitourinary: Denies pain with urination, urinary urgency, urinary frequency Musculoskeletal: Denies weakness, muscle aches/pain, joint aches/pain Integumentary:Denies rash, lesions, bruising Neurological: Denies headache, numbness, tingling, focal weakness Physical Exam Physical Exam: General: A&Ox3. NAD. Cooperative. HEENT: Atraumatic, normocephalic. Pulm: CTAB A&P. -wheezes, -rales, -rhonchi. Symmetrical chest rise. No increase work of breathing. No respiratory distress. Cardiac: RRR, -mrg. Radial pulses intact and symmetrical. Abdominal: Nontender, nondistended, soft. BS present. MSK: 5/5 strength bilaterally to shoulder flexion/adduction/abduction, wrist flexion/extension, finger flexion/extension/interosseus/sales contractor, hip flexion, ankle plantarflexion/dorsiflexion without asymmetry. Sensation to soft touch intact in fingers and toes bilaterally without asymmetry. Active L shoulder abduction limited to 90 by pain. Neck R rotation causes pain the shoot to the elbow. Results & Data Results & Data ([facility]) Vital Signs (Past 12 Hours) Vital Signs Temp Pulse Resp BP Pulse Ox 01/15/20 07:56 36.6 C 96 H 16 133/80 95
[2020-01-15 13:49] VITALS: BP 129/82; PULSE 85
--- NOTE | 2020-01-15 16:43 | Discharge Summary ---
Date of Service January 15, 2020 Admission HPI Per Admitting Provider The patient is a 59-year-old male with a past medical history including cervical degenerative disc disease, cervical disc herniation, who is scheduled for upcoming surgery with Dr. Govea in January. He had the acute onset of upper and lower extremity weakness while on the commode, had gone to the floor, and was too weak to pull himself up, requiring help from his and others. At this time in the ED, he reports that his symptoms are slowly improving, he is it he is able to lift his legs now, but does still report some persistence of numbness in upper and lower extremities bilaterally. He has not had any recent travels or sick exposures. He has not had any injuries. Admission Exam Per Admitting Provider The patient is awake, alert and oriented 3, well developed and well nourished, normocephalic and atraumatic, lying in bed and in no acute distress. HEENT--PERRL, EOMI, mucous membranes and oropharynx normal. Neck--supple. No JVD. No bruits. Thyroid normal, trachea midline, no adenopathy. Heart--normal S1 and S2. No murmurs, rubs or gallops. Lungs--clear bilaterally, no respiratory distress, no accessory muscle use. Abdomen--normal bowel sounds and soft. Nontender. Nondistended, no hernias or masses, no organomegaly. Extremities--no cyanosis or clubbing. No edema. There are good distal pulses b/l. Dermatologic--normal skin turgor, normal color, no abnormal lymph nodes, no rash. Neurologic--cranial nerves II through XII grossly intact. Motor strength 5/5 upper and lower extremities bilaterally. Sensation intact Rheumatologic--normal range of motion. Psychiatric--normal affect. Principal Diagnosis Weakness Discharge Exam General: A&Ox3. NAD. Cooperative. HEENT: Atraumatic, normocephalic. Pulm: CTAB A&P. -wheezes, -rales, -rhonchi. Symmetrical chest rise. No increase work of breathing. No respiratory distress. Cardiac: RRR, -mrg. Radial pulses intact and symmetrical. Abdominal: Nontender, nondistended, soft. BS present. MSK: 5/5 strength bilaterally to shoulder flexion/adduction/abduction, wrist flexion/extension, finger flexion/extension/interosseus/curing press operator, hip flexion, ankle plantarflexion/dorsiflexion without asymmetry. Sensation to soft touch intact in fingers and toes bilaterally without asymmetry. Active L shoulder abduction limited to 90 by pain. Neck R rotation causes pain the shoot to the elbow. Discharge Data Allergies Allergy/AdvReac Type Severity Reaction Status Date / Time No Known Allergies Allergy Verified 01/14/20 19:24 Consultations 01/14/20 21:04 ED Decision to Admit Stat 01/15/20 00:47 Consult Case Management - Discharge Planning Routine 01/15/20 09:42 Consult Orthopedic Surgery Routine Ordered Studies 01/14/20 18:36 MR brain wo con Urgent MR cervical spine wo con Urgent Hospital Course (1) Cervical stenosis of spinal canal: Shmuel Butler is a 59-year-old male with a past medical history of cervical stenosis of the spinal canal, GERD, glaucoma, and hypertension who presented with acute worsening of his neck/shoulder pain and sudden onset weakness in all 4 extremities. Bilateral weakness of arms and legs 2/2 cervical narrowing Kris Butler is a 59-year-old male with a past medical history of C4-C7 cervical disc disease pending anterior cervical discectomy and fusion in early January. He has had slowly progressive left neck and shoulder pain with radiation down to the elbow. 1 day prior to admission he experienced acute/subacute onset of weakness and decreased sensation in all 4 extremities. He was admitted to [facility] and MRI showed no evidence for major disc herniation or high-grade spinal stenosis, but broad-based bulging disks at C4-C5, C5-C6, and C6-C7 with narrowing of the neural foramina. He was placed on Decadron therapy and orthospine was consulted. His symptoms greatly improved overnight with steroid treatment, and he returned to his normal baseline full strength with no sensory deficits the next day. He was seen by orthopedic surgery who recommended that he be discharged to outpatient follow- up, and keeping his scheduled surgical date in early January for anterior discectomy. He did not experience any bladder retention/overflow incontinence or saddle anesthesia during admission. She was discharged to complete a methylprednisolone taper as follows: You have been prescribed a steroid taper with methylprednisolone. Please take methylprednisolone as follows. Day 1: 8 mg with breakfast, lunch, and dinner Day 2: 8 mg with breakfast, 4 mg with lunch and dinner -Day 3: 6 mg with breakfast, lunch, and dinner -Day 4: 4 mg with breakfast, lunch, and dinner -Day 5: 4 mg with breakfast and dinner -Day 6: 4 mg with breakfast. She was discharged to follow-up with her primary care provider and outpatient orthopedic surgeon. GERD His outpatient omeprazole was converted to pantoprazole as inpatient. He was recommended to continue omeprazole while on his steroid taper. Hypertension Kris was continued on lisinopril 30 mg p.o. daily during admission. His lisinopril was temporarily held for 1 day while deciding if he needed to undergo urgent surgical intervention, and then was resumed when it was decided to have him follow-up as an outpatient. He had adequate blood pressure control during admission. Glaucoma Kris has a history of glaucoma, he was continued on his timolol eyedrops daily with no signs of acute exacerbation. DVT prophylaxis Kris was placed on SCDs for DVT prophylaxis and did not show any signs of DVT during admission. (2) GERD (gastroesophageal reflux disease): (3) Glaucoma: (4) HTN (hypertension): (5) Numbness and tingling of upper and lower extremities of both sides: (6) Weakness of distal arms and legs: (7) Cervical disc disease: (8) Weakness: Total Time Total Time Spent Total Time Spent (In Minutes): See Attending Documentation Discharge Plan Discharge Items Patient Disposition: Home - Self-Care Reason For Visit: UPPER AND LOWER EXTREMITY WEAKNESS / NUMBNESS Discharge Diagnosis: Spinal Stenosis Condition on Discharge: Good Activity: Per Instructions section Non-emergency contact: Primary Care Provider Call non-emergency contact if: you have any medication questions, your symptoms worsen, your pain is not controlled, your pain is worsening, your pain is unusual for you, your pain is concerning for you and you have a fever Follow-up/Referrals: Gerard Barnes [Primary Care Provider] - 01/16/20 4:20 pm (Hospital f/u visit with PCP) Diet: Regular Addtl Attending Provider Instructions: You are seen in the hospital for sudden onset severe weakness in all 4 extremities, change in sensation, and worsening of your left neck and shoulder pain. You are found to have cervical stenosis on imaging, similar to prior without sudden disc bulge or movement. Your symptoms improved with steroid treatment. You were evaluated by the spine surgeon who recommended completing a course of steroids, and keeping your surgery date in January. You have been discharged with a steroid pack as noted below. You have been prescribed a steroid taper with methylprednisolone. Please take methylprednisolone as follows. Day 1: 8 mg with breakfast, lunch, and dinner Day 2: 8 mg with breakfast, 4 mg with lunch and dinner -Day 3: 6 mg with breakfast, lunch, and dinner -Day 4: 4 mg with breakfast, lunch, and dinner -Day 5: 4 mg with breakfast and dinner -Day 6: 4 mg with breakfast A followup appointment is being scheduled for you with your primary care phongi sandra. You should be seen seen within 1 week. You should receive a call to confirm this appointment. If you do not receive a call within 48 hours to confirm this appointment, or need to change this appointment, please call the provider's office. If you develop any new or worsening symptoms including fever, chills, sweats, chest pain, chest pressure, difficulty breathing, uncontrolled nausea/vomiting, rash, wheezing, passing out or nearly passing out, bleeding, black/bloody bowel movements, bowel or bladder incontinence, sudden weakness or other new or concerning symptoms please call your primary care physician, or call 911 for re- evaluation in the emergency department if you are very concerned. Pending Studies at Discharge: Yes Stand-Alone Forms: My [facility] [employer], Smoking Cessation Medications and DC Order Prescriptions: New methylprednisolone 4 mg tablet See Rx Instructions .ROUTE .COMPLEX Qty: 23 RF: 0 Continued latanoprost 0.005 % drops 1 drp OPB HS RF: 0 omeprazole 20 mg capsule,delayed release(DR/EC) 20 mg PO QAM RF: 0 timolol maleate 0.5 % drops 1 drp OPL QAM RF: 0 acetaminophen [Tylenol 8 Hour] 650 mg Tablet Extended Release 650 mg PO DIRECTED PRN (Reason: Pain) RF: 0 ibuprofen [Advil] 200 mg Tablet 400 mg PO Q6H PRN (Reason: Pain) RF: 0 gabapentin 300 mg capsule 300 mg PO HS RF: 0 lisinopril 30 mg Tablet 30 mg PO QAM RF: 0 Discharge Orders: Discharge Order (Routine); Ordered 01/15/20 Ordered By: Deric Murguia Admission Data Admit Date/Time: 01/14/20 21:39 Attending Provider: Ana Maria Guthrie Admit Provider: Ryan Tobias Primary Care Provider: Gerard Barnes Other Providers: Ryan Tobias ; Ke Govea Other Interventions: Discharge Summary Assessment (RN) Last Done: 01/15/20 13:48 DC Date/Time DO NOT enter until pt leaves facility: 01/15/20 14:19 Supervising Physician Co-Signing Physician Notes Resident Physician Supervision Note: I independently interviewed and examined the patient and verified the doll history and physical, reviewed labs and image studies, discussed the case with the resident Dr. Murguia and agree with the findings and care plan. Resident Activity Tracking Resident Involvement: Resident Care Provided Care Provided: Adult Hospital Medicine
[2020-01-15] MEDS ORDERED: LATANOPROST 0.005% OP SOLN 2.5 ML BTL OPB SCH (21:00)
[2020-01-15] MEDS ORDERED: GABAPENTIN 300 MG CAP PO SCH (21:00)
--- NOTE | 2020-01-17 16:16 | Electrocardiogram Report ---
Test Reason : Blood Pressure : / mmHG Vent. Rate : 090 BPM Atrial Rate : 090 BPM P-R Int : 156 ms QRS Dur : 086 ms QT Int : 360 ms P-R-T Axes : 054 002 050 degrees QTc Int : 440 ms Normal sinus rhythm Normal ECG When compared with ECG of 25-APR-2019 16:49, No significant change was found Confirmed by Marbin Echevarria ([id number]) on 01/17/2020 4:15:54 PM Referred By: REFERRED SELF Confirmed By:Marbin Echevarria
== END 2020-01-15 14:19 | disposition home or self-care (01) ==
LOC: ED 18:18 → SUATTDRO 21:39 → 3W 21:39 → INTOOBSV 21:39 → 3W 01-15 00:09

== ENCOUNTER 2020-01-29 08:06 | Inpatient (IN) ==
--- NOTE | 2020-01-16 10:31 | PAT Medication Instructions ---
Medication Instructions Date of Service January 16, 2020 Home Medications Medication Instructions Recorded methylprednisolone See Rx Instructions .ROUTE 01/15/20 .COMPLEX #23 tab latanoprost 1 drp OPB HS omeprazole 20 mg PO QAM timolol maleate 1 drp OPL QAM lisinopril 30 mg PO QAM acetaminophen [Tylenol 8 Hour] 650 mg PO DIRECTED gabapentin 300 mg PO HS ibuprofen [Advil] 400 mg PO Q6H PRN methylprednisolone See Rx Instructions .ROUTE .COMPLEX Continue as directed methylprednisolone See Rx Instructions .ROUTE .COMPLEX ASK your prescriber and surgeon ibuprofen [Advil] 400 mg PO Q6H PRN DO NOT take the morning of surgery lisinopril 30 mg PO QAM Take morning of surgery With a small sip of water, OTHERWISE NOTHING TO EAT OR DRINK AFTER MIDNIGHT: omeprazole 20 mg PO QAM timolol maleate 1 drp OPL QAM acetaminophen [Tylenol 8 Hour] 650 mg PO DIRECTED (okay to take up to 4 hours prior to surgery if needed) Take evening before surgery latanoprost 1 drp OPB HS acetaminophen [Tylenol 8 Hour] 650 mg PO DIRECTED Other Notes If you have any questions please call us at [phone] or [phone] or or [phone]
--- NOTE | 2020-01-16 10:33 | Anesthesiology Consultation ---
Date of Service January 16, 2020 Assessment & Plan (1) Encounter for pre-operative examination: Per PAT assessment on 01/15: Travel screen negative. No known COVID-19 positive contacts. No current COVID-19 related symptoms. Surgeon arranging preop COVID testing. Awaiting results. Chart Review Chart Review: Acceptable Risk for Surgery and Patient seen in Pre Admission Testing Teaching & Discussion Pre-Anesthesia Teaching/Discussion Notes: Instructed NPO after midnight before surgery,except medications with 15 cc of water. Medication instructions pr ovided according to the PAT guidelines. History Surgery Operation Date: 01/29/20 12:25 Proposed Procedures p C5-C7 Anterior Cervical Discectomy Fusion - Ke Govea DO Height/Weight Height: 5 ft 11 in Weight: 73.3 kg Allergies Allergy/AdvReac Type Severity Reaction Status Date / Time No Known Allergies Allergy Verified 01/14/20 19:24 Medications Home Medications Medication Instructions Recorded Confirmed Last Taken latanoprost 1 drp OPB HS 04/25/19 01/14/20 01/13/20 omeprazole 20 mg PO QAM 04/25/19 01/14/20 01/14/20 timolol maleate 1 drp OPL QAM 04/25/19 01/14/20 01/14/20 lisinopril 30 mg PO QAM 01/10/20 01/14/20 01/14/20 acetaminophen [Tylenol 8 Hour] 650 mg PO DIRECTED PRN 01/14/20 01/14/20 Unknown gabapentin 300 mg PO HS 01/14/20 01/14/20 01/13/20 ibuprofen [Advil] 400 mg PO Q6H PRN 01/14/20 01/14/20 Unknown methylprednisolone See Rx Instructions .ROUTE 01/15/20 Unknown .COMPLEX #23 tab Past Medical History Medical History Anxiety Cervical disc disease prescribed prednisone taper x6 days- to be completed approximately 8/2 COPD (chronic obstructive pulmonary disease) stable GERD (gastroesophageal reflux disease) controlled Glaucoma History of migraine HTN (hypertension) Exercise / Class Metabolic Activity III < 4 Walking/Shop/Light housework Past Family History Family History Father Cancer Myocardial infarction Past Surgical History Surgical History History of eyelid surgery History of surgery mult benign tumors removed from neck History of surgery benign growth removed from RLE History of tooth extraction History of vocal cord polypectomy Past Anesthesia History No Hx of Anesthesia Complications and No Family Hx of Anesthesia Complications History of PONV No Hx of PONV and No Hx of Motion Sickness STOP BANG Total 4 Social History Smoking Status: Current every day smoker tobacco type: cigarettes Smoking cigarettes per day: 40 (tobacco use x 45+ years) Do You Dip or Chew Tobacco: No Hx Alcohol Use: No Hx Substance Use: No substance use type: does not use Review of Systems Chronic cough, unchanged (felt related to smoking). Patient denies chest pain, shortness of breath, fever, chills, wheezing, palpitations. Physical Exam Vital Signs VITALS BP 122/85 P 78 TEMP 98.2 SP02 98%RA RESP 18 PHYSICAL Full neck and c-spine range of motion (cervicalgia with extension). Full TMJ range of motion. TMD 3 finger breaths Mallampati Score 2 Dentition: full upper plate, edentulous Lungs: clear throughout to auscultation Cardiac: regular rate and rhythm, no murmurs noted Spine: normal Carotid arteries: negative bruit Extremities: no edema Trimmed walls Testing Laboratory Results 01/16/20 10:50 Urine Color Yellow 01/16/20 10:50 Urine Appearance Clear (Clear) 01/16/20 10:50 Urine pH 5.5 (4.5-7.5) 01/16/20 10:50 Ur Specific [place] 1.014 (1.000-1.030) 01/16/20 10:50 Urine Protein Negative (Negative) 01/16/20 10:50 Urine Glucose (UA) Negative (Negative) 01/16/20 10:50 Urine Ketones Negative (Negative) 01/16/20 10:50 Urine Nitrite Negative (Negative) 01/16/20 10:50 Ur Leukocyte Esterase Negative (Negative) 01/16/20 10:50 Blood Type O Positive 01/16/20 10:50 Antibody Screen NEGATIVE 01/16/20 10:50 Elevated WBC in setting of steroid use. Surgeon's office made aware of elevated WBC. 01/14/20 SODIUM 139 POTASSIUM 3.7 CHLORIDE 107 CO2 22 BUN 16 CREATININE 1.15 GLUCOSE 107 PT 10.2 PTT 26.3 INR 1.0 TSH 1.980 Electrocardiogram Date: 01/08/20 NSR at 90bpm. unconfirmed report. Chest X-Ray Date: 01/14/20 FINDINGS: An AP, portable, upright chest radiograph is compared to study dated 04/25/2019. The examination is degraded by portable technique and patient rotation. The cardiomediastinal silhouette is unremarkable. Chronic interstitial thickening is similar to previous. Emphysema is suspected. Apical scarring is observed. There is bibasilar scarring/atelectasis. No airspace consolidation or large pleural effusion is identified. No pneumothorax is seen. The bony thorax is grossly intact. IMPRESSION: No acute cardiopulmonary abnormality.
[2020-01-16 12:26] LABS: Basophils # (auto) 0.01 K/uL (0-0.2); Basophils % (auto) 0.1 %; Hematocrit (blood only) 34.3 % (42-52); Hemoglobin 11.6 g/dL (14.0-18.0); Immature Granulocytes # (auto) 0.06 K/uL (0.00-0.02); Immature Granulocytes % (auto) 0.3 %; Lymphocytes # (auto) 1.87 K/uL (1.2-3.4); Lymphocytes % (auto) 9.6 %; Mean Corpuscular Hemoglobin 32.6 pg (25-34); Mean Corpuscular Hgb Conc 33.8 g/dL (32-36); Mean Corpuscular Volume 96.3 fL (80-100); Mean Platelet Volume 10.4 fL (7.4-10.4); Monocytes # (auto) 0.97 K/uL (0.11-0.59); Neutrophils # (auto) 16.63 K/uL (1.4-6.5); Platelet Count 426 K/uL (130-400); RDW Coefficient of Variation 13.7 % (11.5-14.5); RDW Standard Deviation 47.6 fL (36.4-46.3); Red Blood Count 3.56 M/uL (4.7-6.1); White Blood Count 19.54 K/uL (4.8-10.8)
[2020-01-16 12:27] LABS: Appearance Urine Clear (Clear); Bilirubin Urine Negative (Negative); Blood Urine Negative (Negative); Color Urine Yellow; Glucose Urine UA Negative (Negative); Ketones Urine Negative (Negative); Leukocyte Esterase Urine Negative (Negative); Nitrite Urine Negative (Negative); Protein Urine Negative (Negative); Specific Gravity Urine 1.014 (1.000-1.030); Urobilinogen Urine Negative (Negative); pH Urine 5.5 (4.5-7.5)
[~2020-01-29 08:06] MED LIST: ACETAMINOPHEN 500 MG TAB PO SCH; CEFAZOLIN 1000MG 1,000 MG/7.5 ML SYR IV SCH; CeleBREX 200 MG CAP PO SCH; GABAPENTIN 600 MG DOSE PO SCH; LR 15ML/HR IV SCH
[2020-01-29] MEDS ORDERED: MIDAZOLAM HCL 1 MG/ML 2ML VIAL ONE (09:33)
[2020-01-29] MEDS ORDERED: ONDANSETRON INJ 2 MG/ML 2 ML VIAL ONE (09:33)
[2020-01-29] MEDS ORDERED: DEXAMETHASONE SOD INJ 4 MG/ML VIAL ONE (09:33)
[2020-01-29] MEDS ORDERED: GLYCOPYRROLATE 0.2 MG/ML VIAL ONE (09:33)
[2020-01-29] MEDS ORDERED: fentaNYL citrate 100 MCG/2 ML VIAL ONE ×2 (09:33→10:51)
[2020-01-29] MEDS ORDERED: LIDOCAINE HCL 2% 2 ML VIAL/AMP(20MG/ML) INFIL ONE (09:33)
[2020-01-29] MEDS ORDERED: NEOSTIGMINE METHYLSULFATE 1 MG/ML 10ML VIAL ONE (09:33)
[2020-01-29] MEDS ORDERED: PROPOFOL IV EMULSION 10 MG/ML 20 ML VIAL IV ONE (09:33)
[2020-01-29] MEDS ORDERED: ONDANSETRON INJ 2 MG/ML 2 ML VIAL IV PRN ×2 (09:42→14:17)
[2020-01-29] MEDS ORDERED: ePHEDrine sulfate 50 MG/ML AMP IV PRN (09:42)
[2020-01-29] MEDS ORDERED: ATROPINE SULFATE 0.1 MG/ML 10ML SYR IV PRN (09:42)
[2020-01-29] MEDS ORDERED: HYDROmorphone INJ 1 MG/ML SYRINGE IV PRN ×2 (09:42→14:17)
[2020-01-29] MEDS ORDERED: fentaNYL citrate 100 MCG/2 ML VIAL IV PRN (09:42)
--- NOTE | 2020-01-29 09:47 | History & Physical Bridge Note ---
Date of Service January 29, 2020 History & Physical Bridge Note I have examined the patient, reviewed the History & Physical and in the interval since the performance of the History & Physical I have noted the following changes of clinical significance: no changes noted
--- NOTE | 2020-01-29 09:48 | History & Physical Report ---
Date of Service January 29, 2020 Assessment & Plan (1) Cervical stenosis of spinal canal: C5-C7 anterior cervical discectomy and fusion Present on Admission?: Yes History of Present Illness Chief Complaint: Neck and arm pain Primary Care Provider: Gerard Barnes This is a 59-year-old male that presents with chronic persistent left neck and arm symptoms after failed extensive course of nonoperative care is here for surgical intervention. Allergies Allergy/AdvReac Type Severity Reaction Status Date / Time No Known Allergies Allergy Verified 01/29/20 08:46 Home Medications Home Medications Medication Instructions Recorded Confirmed Type latanoprost 1 drp OPB HS 04/25/19 01/29/20 History omeprazole 20 mg PO QAM 04/25/19 01/29/20 History timolol maleate 1 drp OPL QAM 04/25/19 01/29/20 History lisinopril 30 mg PO QAM 01/10/20 01/29/20 History acetaminophen [Tylenol 8 Hour] 650 mg PO DIRECTED PRN 01/14/20 01/29/20 History gabapentin 300 mg PO HS 01/14/20 01/29/20 History ibuprofen [Advil] 400 mg PO Q6H PRN 01/14/20 01/29/20 History methylprednisolone See Rx Instructions .ROUTE 01/15/20 01/29/20 Rx .COMPLEX #23 tab Past Med/Surg History Medical History Anxiety Cervical disc disease prescribed prednisone taper x6 days- to be completed approximately 8/2 COPD (chronic obstructive pulmonary disease) stable GERD (gastroesophageal reflux disease) controlled Glaucoma History of migraine HTN (hypertension) Surgical History History of eyelid surgery History of surgery mult benign tumors removed from neck History of surgery benign growth removed from RLE History of tooth extraction History of vocal cord polypectomy Family History Father Cancer Myocardial infarction Social History Smoking Status: Current every day smoker packs per day: 2; Cigarettes Per Day: 40 (tobacco use x 45+ years); Second Hand Exposure: Yes; Do You Dip or Chew Tobacco: No; Tobacco Cessation Education Requested by Patient: No Hx Alcohol Use: No Hx Substance Use: No Preferred Language: Niuean Communication Ability: Effective Housing Quality Standard Inspector Required: No Beliefs That Will Affect Care: None Current Living Situation: Spouse Feels Safe at Home: Yes Safety Concerns: Feels Safe At This Time Physical Exam Physical Exam: Patient is alert and oriented with weakness to left upper extremity. Heart regular rate and rhythm. Lungs clear to auscultation. Results & Data Vital Signs (Past 12 Hours) Vital Signs Temp Pulse Resp BP Pulse Ox 01/29/20 08:57 36.8 C 97 H 18 148/89 H 96
[2020-01-29] MEDS ORDERED: BACITRACIN INJ 50,000 UNIT VIAL ONE (10:10)
[2020-01-29] MEDS ORDERED: FLOSEAL HEMOSTATIC MATRIX 10ML TOP ONE (11:56)
--- NOTE | 2020-01-29 12:04 | Operative Report ---
Post Operative Report Pre & Post Diagnosis Operation Date: 01/29/20 10:05 Pre-Op Diagnosis: Cervical spinal stenosis with radiculopathy Post-Op Diagnosis: Same I identified the patient and participated in the time-out.: Yes Procedure Operation Date: 01/29/20 10:05 Actual Procedures #1 anterior cervical discectomy and fusion with bilateral foraminotomies C5-6 and C6-7. #2 anterior cervical arthrodesis C5-6 and C6-7. #3 placement of Spira 8 mm cage filled with DBM at C5-6 and 9 mm cage filled with DBM C6-7. Surgeon Ke Govea, Director Internal Audit Mabel Pham Estimated Blood Loss 10 Findings Consistent with Post-Op Diagnosis Specimens None Indications This is a 5-year-old male who presents with above-mentioned diagnosis after failed extensive course of nonoperative care is here for the above-mentioned procedure. Description of Procedure Patient was met with identified informed consent obtained. Patient was then taken to the operative suite underwent an patient placed in the supine position Ander table head on Stephen refrigerating engineer head. All bony prominences well-padded eyes inspected to ensure no external pressure placed upon the. With the assistance of fluoroscopy identified the see 6 vertebral body and a transverse incision was placed on the right anterior aspect of the cervical spine overlying this region. Sharp dissection with assistance of bipolar electrocautery performed down to and exposing the anterior cervical spine from C3 5 to C7. Self-retaining retractors placed. Then performed a complete discectomy of C5-6 out to the uncovertebral joints bilaterally. York distracting pins were utilized. Removed all posterior annular fibers longitudinal ligament bilateral foraminotomies performed. I then tamped an 8 mm spiral cage filled with DBM into position. Distracting apparatus was removed and I proceeded to C6-C7. Again complete discectomy performed out to the uncovertebral's bilaterally. York distracting pins again utilized. Removed all posterior annular fibers longitudinal ligament bilateral foraminotomies performed. Endplates were then burred to subcortical bleeding bone and an 9 mm Spira cage filled DBM tapped in position. Distracting apparatus was removed. All anterior osteophytes burred to a smooth cortical surface and a conroy plate and screws applied with assistance of fluoroscopy. Incision was then copiously irrigated explored to ensure no damage to surrounding structures remaining bleeding. 10 round TYSHAWN drain inserted. Incision was then closed with 2 Vicryl in a fashion of 4 Monocryl for final skin closure. Steri-Strip sterile dressings placed. Patient waken taken PACU stable addition. Please note spinal cord monitoring was utilized that the procedure no changes noted. Lastly Mabel Pham was present at the entire procedure on the face positioning complex portions of the surgery and final skin closure. I attest to the content of the Intraoperative Record and any orders documented therein. Any exceptions are noted below.
--- NOTE | 2020-01-29 12:55 | Fluoroscopy Report ---
FL cervical 2-3V CLINICAL HISTORY: ACDF C5-7 COMPARISON STUDY: None. FLUOROSCOPY TIME: 6.9 seconds. FINDINGS: 2 fluoroscopic spot images of the cervical spine demonstrate anterior cervical discectomy a nd fusion from C5 through C7. The hardware appears intact. IMPRESSION: Fluoroscopy provided for C5-C7 ACDF. ACT 112: Negative or not required by law. Electronically signed by: Gene Woodard M.D. 01/29/2020 12:54 PM
--- NOTE | 2020-01-29 13:54 | Anesthesiology Progress Note ---
Date of Service January 29, 2020 Anesthesia Post Procedure Vital Signs Vital Signs: Temp Pulse Pulse Resp BP BP Pulse Ox 01/29/20 13:40 93 H 20 154/89 H 94 01/29/20 13:25 95 H 19 157/94 H 95 01/29/20 13:15 36.7 C 87 24 144/92 H 94 01/29/20 13:05 90 14 158/98 H 96 01/29/20 12:55 96 H 30 H 156/101 H 96 01/29/20 12:45 91 H 23 150/96 H 98 01/29/20 12:35 86 13 155/98 H 100 01/29/20 12:25 88 11 L 144/88 H 100 01/29/20 12:19 36.4 C L 90 16 145/95 H 100 01/29/20 08:57 36.8 C 97 H 18 148/89 H 96 Pain Intensity Left Arm: Pain Intensity: 0 Transfer of Care Handoff Completed per policy Notes Mental Status: alert / awake / arousable and participated in evaluation Patient Amnestic to Procedure: Yes Nausea / Vomiting: adequately controlled Pain: adequately controlled Airway Patency, RR, SpO2: stable & adequate BP & HR: stable & adequate Hydration State: stable & adequate Anesthetic Complications: no major complications apparent and Pt Satisfied with anesthetic care
[2020-01-29] MEDS: LACTATED RINGER'S 1,000 ML IV SCH ×2 (14:00→23:44)
[2020-01-29] MEDS ORDERED: MAGNESIUM HYDROXIDE SUSP 30 ML UDC PO PRN (14:17)
[2020-01-29] MEDS ORDERED: TRAMADOL HCL 50 MG TABLET PO PRN (14:17)
[2020-01-29] MEDS ORDERED: ACETAMINOPHEN 500 MG TAB PO PRN (14:17)
[2020-01-29] MEDS ORDERED: ACETAMINOPHEN 1,000 MG/100 ML VIAL IV PRN (14:17)
[2020-01-29] MEDS ORDERED: OXYCODONE HCL IR 5 MG TAB (IMMEDIATE RELEASE) PO PRN (14:17)
[2020-01-29] MEDS ORDERED: LORazepam 0.5 MG/1 ML VIAL IV PRN (14:17)
[2020-01-29] MEDS ORDERED: PROMETHAZINE HCL 12.5 MG in SODIUM CHLORIDE 0.9% 50 ML IV PRN (14:17)
[2020-01-29] MEDS ORDERED: SOD PHOSPHATE/SOD BIPHOSPHATE ENEMA 132 ML BTL PR PRN (14:17)
[2020-01-29] MEDS ORDERED: DO NOT ADMINISTER PNEUMOCOCCAL VACCINE PRN (14:17)
[2020-01-29] MEDS ORDERED: METOCLOPRAMIDE HCL INJ 5 MG/ML 2 ML VIAL IV PRN (14:17)
[2020-01-29] MEDS ORDERED: DO NOT ADMINISTER FLU VACCINE PRN (14:17)
[2020-01-29] MEDS ORDERED: NALOXONE HCL 0.4 MG/1 ML VIAL/CARP IV PRN (14:17)
[2020-01-29] MEDS ORDERED: LORazepam 0.5 MG TAB PO PRN (14:17)
[2020-01-29] MEDS ORDERED: FAMOTIDINE 20 MG TAB PO PRN (14:17)
[2020-01-29] MEDS ORDERED: HYDROmorphone INJ 0.5 MG/0.5 ML SYR IV PRN (14:17)
[2020-01-29] MEDS ORDERED: ALUMINUM/MAGNESIUM SUSP 30 ML UDC PO PRN (14:17)
[2020-01-29] MEDS ORDERED: DEXAMETHASONE SOD PHOSPHATE 8 MG in SYRINGE 0 ML IV PRN (14:17)
[2020-01-29] MEDS ORDERED: RACEPINEPHRINE 2.25% NEBU SOLN 0.5 ML VIAL INH PRN (14:17)
[2020-01-29] MEDS ORDERED: ONDANSETRON 4 MG OD TAB PO PRN (14:17)
[2020-01-29] MEDS: CEFAZOLIN 2000MG 2,000 MG/15 ML SYR IV SCH (17:24)
[2020-01-29] MEDS ORDERED: DOCUSATE SODIUM/SENNA 50/8.6MG TAB PO SCH (21:00)
[2020-01-29] MEDS ORDERED: LATANOPROST 0.005% OP SOLN 2.5 ML BTL OPB SCH (21:00)
[2020-01-29] MEDS ORDERED: GABAPENTIN 300 MG CAP PO SCH (21:00)
[2020-01-30] MEDS: CEFAZOLIN 2000MG 2,000 MG/15 ML SYR IV SCH (02:08)
[2020-01-30] MEDS ORDERED: POLYETHYLENE (MIRALAX) 17 GM PACK PO SCH (06:00)
--- NOTE | 2020-01-30 08:25 | Discharge Summary ---
Date of Service January 30, 2020 Admission HPI Per Admitting Provider This is a 59-year-old male that presents with chronic persistent left neck and arm symptoms after failed extensive course of nonoperative care is here for surgical intervention. Principal Diagnosis Cervical spinal stenosis with radiculopathy Discharge Data Allergies Allergy/AdvReac Type Severity Reaction Status Date / Time No Known Allergies Allergy Verified 01/29/20 08:46 Procedures Performed Operation Date: 01/29/20 10:05 Actual Procedures p C5-C7 Anterior Cervical Discectomy Fusion, Spinal Cord Monitoring(Not Applicable) - Ke Govea DO Ordered Studies 01/29/20 10:05 FL cervical 2-3V Routine FL fluoroscopy <1hr Routine Hospital Course (1) Cervical disc disease: Patient underwent anterior cervical discectomy and fusion tolerated as well as taken to orthopedic floor postoperative. Postop day 1 arm symptoms are markedly improved. Swallowing well. No hoarseness. Excellent strength testing. Subsequently discharged home. Discharge orders and instructions from the chart for further review. Total Time Total Time Spent Total Time Spent (In Minutes): 20 minutes Discharge Plan Discharge Items Patient Disposition: Home - Self-Care Reason For Visit: Spinal Stenosis, Cerical Region Discharge Diagnosis: Cervical radiculopathy Activity: As commented below Non-emergency contact: Primary Care Provider Call non-emergency contact if: you have any medication questions Follow-up/Referrals: Gerard Barnes [Primary Care Provider] - Diet: Regular Addtl Attending Provider Instructions: ACTIVITY RECOMMENDATIONS: SELF CARE INSTRUCTIONS AFTER CERVICAL FUSIONS 1. No smoking. Smoking drastically decreases the chance of a solid fusion. 2. No bending, lifting more than 5 pounds, or twisting (roll like a log when turning in bed). 3. You may shower 3 days after surgery. Thoroughly dry wound. Do not soak in the tub. 4. Cervical collar: Must be worn at all times including sleeping. You may remove the brace only to bath, eat and if you are sitting in a recliner. 5. Please walk as much as you can for exercise. Gradually increase the distance that you walk as your endurance increases. SPECIAL CARE INSTRUCTIONS: VERY IMPORTANT TO READ AND REVIEW A. Do not take any anti-inflammatory medications (i.e. Indocin, Advil, Aspirin, Naprosyn, Aleve, Motrin, etc.) as these may inhibit the chance of a solid fusion. Tylenol is okay to take. B. Your surgical incision has been closed with a cosmetic suture under the skin that will dissolve in about 6 weeks. In 14 days, you can use a pair of clean scissors and cut the suture that is left outside of the skin at the ends of your incision. C. Complications are uncommon, but please contact us if you have any signs or symptoms of: 1. wound infection (fever higher than 102.5 degrees F, redness, separation of wound, drainage, or increasing pain from the incision) 2. blood clots in legs (pain, swelling, redness and warmth in legs) 3. urinary tract infection (fever higher than 102.5 degrees, burning upon urination or increased frequency of urination) 4. nerve problems (inability to walk on your toes or heels, numbness, loss of bowel or bladder control) 5. any other symptoms that concern you. D. Please call the office at if you have any concerns or questions about your operation or recovery. MANAGING PAIN AFTER SPINAL SURGERY 1. Narcotic medication is intended for short-term use and will be provided for surgical pain. Surgical pain usually lasts for a period of 4-6 weeks. Narcotic medication includes Percocet, Vicodin, Darvocet, Tylenol #3 or Lortab. 2. Longer-term pain is more appropriately treated with non-narcotic medication such as Tylenol ES. 3. Muscle spasm is not appropriately treated with narcotics. Muscle relaxers such as Soma, Flexeril or Skelaxin can be used along with Tylenol ES. 4. Remember that we all live with some "aches and pains". This is not unusual or uncommon after an injury or as we get older. 5. We will provide appropriate medication within the normal guidelines of their prescribed use. We will also be very cautious and aware of potential abuse and extended duration of patients' medication needs. 6. Please allow 2-3 days to process refills. Prescriptions will not be mailed but must be picked up at the office. FOLLOW UP VISIT: Keep your scheduled follow-up appointment. Any questions, please call the office at . Pending Studies at Discharge: No Stand-Alone Forms: My [facility] [employer], Smoking Cessation Medications and DC Order Prescriptions: New tramadol 50 mg tablet 50 mg PO Q6H PRN (Reason: pain, moderate) Qty: 10 RF: 0 oxycodone 5 mg tablet 5 mg PO Q6H PRN (Reason: pain, severe) Qty: 10 RF: 0 Continued latanoprost 0.005 % drops 1 drp OPB HS RF: 0 omeprazole 20 mg capsule,delayed release(DR/EC) 20 mg PO QAM RF: 0 timolol maleate 0.5 % drops 1 drp OPL QAM RF: 0 acetaminophen [Tylenol 8 Hour] 650 mg Tablet Extended Release 650 mg PO DIRECTED PRN (Reason: Pain) RF: 0 gabapentin 300 mg capsule 300 mg PO HS RF: 0 methylprednisolone 4 mg tablet See Rx Instructions .ROUTE .COMPLEX Qty: 23 RF: 0 lisinopril 30 mg Tablet 30 mg PO QAM RF: 0 Discontinued ibuprofen [Advil] 200 mg Tablet 400 mg PO Q6H PRN (Reason: Pain) RF: 0 Discharge Orders: Discharge Order (Routine); Ordered 01/30/20 Ordered By: Ke Govea Admission Data Admit Date/Time: 01/29/20 12:45 Attending Provider: Ke Govea Admit Provider: Ke Govea Primary Care Provider: Gerard Barnes
[2020-01-30] MEDS ORDERED: lisinopriL 10 MG TAB PO SCH (09:00)
[2020-01-30] MEDS ORDERED: TIMOLOL MALEATE 0.25% OP SOLN 5 ML BTL OPL SCH (09:00)
[2020-01-30] MEDS ORDERED: PANTOprazole 40 MG TAB PO SCH (09:00)
[2020-01-31] MEDS ORDERED: bisacodyL 10 MG SUPP PR PRN (12:05)
== END 2020-01-30 09:13 | disposition home or self-care (01) | DRG 473 ==
LOC: ASU 08:06 → 3E 08:06 → OBSVTOIN 12:45

== ENCOUNTER 2020-07-12 08:57 | Inpatient (IN) ==
[2020-07-12] MEDS ORDERED: ONDANSETRON INJ 2 MG/ML 2 ML VIAL IV STA (09:45)
[2020-07-12] MEDS ORDERED: SODIUM CHLORIDE 0.9% 500 ML IV SCH (09:45)
[2020-07-12] MEDS ORDERED: HYDROmorphone INJ 0.5 MG/0.5 ML SYR IV STA (09:45)
[2020-07-12 09:53] LABS: Basophils # (auto) 0.01 K/uL (0-0.2); Basophils % (auto) 0.1 %; Hematocrit (blood only) 43.3 % (42-52); Hemoglobin 14.5 g/dL (14.0-18.0); Immature Granulocytes # (auto) 0.12 K/uL (0.00-0.02); Immature Granulocytes % (auto) 0.6 %; Lymphocytes # (auto) 3.72 K/uL (1.2-3.4); Lymphocytes % (auto) 18.6 %; Mean Corpuscular Hemoglobin 33.8 pg (25-34); Mean Corpuscular Hgb Conc 33.5 g/dL (32-36); Mean Corpuscular Volume 100.9 fL (80-100); Mean Platelet Volume 9.7 fL (7.4-10.4); Monocytes # (auto) 1.27 K/uL (0.11-0.59); Monocytes % (auto) 6.4 %; Neutrophils # (auto) 14.48 K/uL (1.4-6.5); Neutrophils % (auto) 72.3 %; Platelet Count 466 K/uL (130-400); RDW Coefficient of Variation 13.9 % (11.5-14.5); RDW Standard Deviation 50.8 fL (36.4-46.3); Red Blood Count 4.29 M/uL (4.7-6.1)
--- NOTE | 2020-07-12 09:54 | Emergency Department Note ---
History of Present Illness General Chief complaint: Cardiac Assessment Stated complaint: Lung Cancer Time Seen by Provider: 07/12/20 09:35 Source: patient History of Present Illness Provider complaint: Left-sided chest pain Onset (ago): week(s) Location: chest Radiation: back Severity: severe Pain Consistency: + constant Maximum Pain Intensity: 9 Quality: + sharp Relieved By: + medication (Morphine) Associated symptoms: + other (Difficulty swallowing, numbness in the left arm and lightheadedness); no cough, no fever/chills, no headaches, no malaise, no nausea/vomiting and no shortness of breath This is a 60-year-old male with metastatic lung cancer and Pancoast syndrome presenting with worsening left-sided chest pain. He has had the pain for weeks and was admitted to the hospital at [facility] where he is treated with opiates and steroids. He has had 3 radiation treatments and states that starting yesterday afternoon he has developed worsening pain and difficulty swallowing. He describes the pain as a sharp pain. He rates it a 9 out of 10 in severity. It radiates to his back. He states it is worse when he lies down on it. It is slightly better with the morphine he takes at home. It is not associated with shortness of breath but he does have difficulty swallowing and lightheadedness. He states he has only been able to drink about 1/2 cup of water since yesterday. He did eat an apple this morning but states it took him 45 minutes to do so. He is not vomiting, having fevers, having abdominal pain, diarrhea or urinary symptoms. He does state that his urine is dark. He denies any leg swelling or pain, known exposure to COVID-19, cough or cold symptoms and states that he had a negative Covid test late last month at [facility]. He does have chronic numbness to the left arm due to nerve compression from the tumor. Home Medications Medication Instructions Recorded Confirmed Type latanoprost 1 drp OPB 04/25/19 07/12/20 History omeprazole 20 mg PO QAM 04/25/19 07/12/20 History lisinopril 30 mg PO QAM 01/10/20 07/12/20 History acetaminophen [Tylenol 8 Hour] 650 mg PO DIRECTED PRN 01/14/20 07/12/20 History cyclobenzaprine 10 mg PO UD PRN 06/11/20 07/12/20 History morphine 30 mg capsule,extended 30 mg PO Q12H PRN cap 07/01/20 07/12/20 History release 24 hr multiphase oxycodone 10 mg tablet 10 mg PO Q4H PRN 07/01/20 07/12/20 History lorazepam 0.5 mg tablet 0.5 mg PO DAILY #1 tab 07/03/20 07/12/20 Rx Allergies Allergy/AdvReac Type Severity Reaction Status Date / Time No Known Allergies Allergy Verified 07/12/20 10:28 Past Med/Surg History Medical History Anxiety Cervical disc disease prescribed prednisone taper x6 days- to be completed approximately 8/2 Consciousness alteration COPD (chronic obstructive pulmonary disease) stable GERD (gastroesophageal reflux disease) controlled Glaucoma History of migraine HTN (hypertension) Malignant neoplasm of upper lobe, left bronchus or lung Pancoast tumor Tobacco abuse Weakness of left upper extremity Surgical History History of eyelid surgery History of surgery mult benign tumors removed from neck History of surgery benign growth removed from RLE History of tooth extraction History of vocal cord polypectomy S/P cervical spinal fusion Family History Father Cancer Myocardial infarction Grandmother (Maternal) Cancer Other Asthma Diabetes Heart disease Social History Smoking Status: Heavy tobacco smoker Tobacco Type: Cigarettes Age Started Using Tobacco: 14; packs per day: 2; Cigarettes Per Day: 40 (tobacco use x 45+ years); Second Hand Exposure: No; Do You Dip or Chew Tobacco: No; Hx Alcohol Use: No Hx Substance Use: No Preferred Language: Bengali Communication Ability: Effective Visual Impairment: No Limitations Handle Rounder Operator Required: No Beliefs That Will Affect Care: None marital status: Current Living Situation: Spouse and Family Current Living Situation Comment: Lives w/spouse and 4 grandchildren current occupation: currently on short term disability from [employer] in [facility] How many Children do You have: 2 Other Information That Helps Us Care for You: No other: currently raising adopted 4 grandchildren Feels Safe at Home: Yes Safety Concerns: Feels Safe At This Time Childhood Exposure to Second-Hand Smoke: Yes caffeine: Yes (coffee 3-4 pots/day) during the past year weight has: remained stable Dental Care, Regularly: No Physical Activity Frequency: Does not Exercise Physical Activity Frequency Comment: limited due to pain and limited rom of lue Seatbelt Use: other Sunscreen Use: No Assistive Devices: Denture - Upper Review of Systems See HPI for pertinent positives & negatives. and A total of 10 systems reviewed and were otherwise negative Physical Exam Vital Signs Vital Signs - 24 hr 07/12/20 09:05 07/12/20 09:30 07/12/20 10:00 Temperature 36.4 C L Temperature Source Temporal Artery Scan Pulse Rate 90 89 87 Pulse Rate from SpO2 Sensor 88 88 Respiratory Rate 22 22 18 Respiratory Depth Normal Blood Pressure 152/92 H 126/81 109/74 Blood Pressure Mean 112 96 85 Blood Pressure Position Sitting Pulse Oximetry 98 97 94 Oxygen Delivery Method Room Air Sepsis Recent Fever Within 48 Hours No Sepsis New/Unexplained Change in Mental Status No Sepsis Action Taken by Nursing No Action Required 07/12/20 10:30 07/12/20 11:00 07/12/20 11:22 Temperature Temperature Source Pulse Rate 85 80 88 Pulse Rate from SpO2 Sensor 85 80 Respiratory Rate 14 14 22 Respiratory Depth Blood Pressure 119/76 128/78 160/89 H Blood Pressure Mean 90 94 112 Blood Pressure Position Pulse Oximetry 95 97 98 Oxygen Delivery Method Room Air Sepsis Recent Fever Within 48 Hours Sepsis New/Unexplained Change in Mental Status Sepsis Action Taken by Nursing 07/12/20 11:23 07/12/20 11:30 07/12/20 11:31 Temperature Temperature Source Pulse Rate 91 H 79 85 Pulse Rate from SpO2 Sensor 90 82 84 Respiratory Rate 13 16 15 Respiratory Depth Blood Pressure 132/79 Blood Pressure Mean 96 Blood Pressure Position Pulse Oximetry 98 97 96 Oxygen Delivery Method Sepsis Recent Fever Within 48 Hours Sepsis New/Unexplained Change in Mental Status Sepsis Action Taken by Nursing 07/12/20 12:00 07/12/20 12:01 07/12/20 12:30 Temperature Temperature Source Pulse Rate 83 87 80 Pulse Rate from SpO2 Sensor 81 85 Respiratory Rate 16 13 16 Respiratory Depth Blood Pressure 147/94 H 130/93 Blood Pressure Mean 111 105 Blood Pressure Position Pulse Oximetry 96 97 Oxygen Delivery Method Sepsis Recent Fever Within 48 Hours Sepsis New/Unexplained Change in Mental Status Sepsis Action Taken by Nursing 07/12/20 12:31 07/12/20 13:00 07/12/20 13:30 Temperature Temperature Source Pulse Rate 78 76 86 Pulse Rate from SpO2 Sensor 79 76 84 Respiratory Rate 16 16 20 Respiratory Depth Blood Pressure 137/87 140/89 Blood Pressure Mean 103 106 Blood Pressure Position Pulse Oximetry 99 97 96 Oxygen Delivery Method Room Air Sepsis Recent Fever Within 48 Hours Sepsis New/Unexplained Change in Mental Status Sepsis Action Taken by Nursing Constitutional: Vital signs reviewed. The patient is obviously uncomfortable. Eyes: Pupils are equal round reactive to light. Conjunctiva are noninjected. ENT: Pharynx is clear without erythema or exudate. Mucous membranes are dry. Neck supple without meningeal signs. Respiratory: Clear to auscultation bilaterally. Breath sounds are equal bilaterally. Cardiovascular: Regular rate and rhythm. No rubs or gallops. GI: Soft, nondistended and nontender. Bowel sounds are present. Musculoskeletal: No peripheral edema. No lower extremity tenderness. Integumentary: No cyanosis. or jaundice. Neurological: The patient is awake and alert. Psychiatric: Normal affect. Course Administered Medications Nystatin (Nystatin Susp 500,000 U/5 Ml Udc) 10 ml PO QID TRAMAINE Stop: 07/22/20 16:59 Last Admin: 07/12/20 16:05 Dose: 10 ml Documented by: [id number] Discontinued Medications Hydromorphone HCl (Hydromorphone Inj 0.5 Mg/0.5 Ml Syr) 0.5 mg IV NOW STA Stop: 07/12/20 09:46 Last Admin: 07/12/20 09:55 Dose: 0.5 mg Documented by: [id number] Hydromorphone HCl (Hydromorphone Inj 1 Mg/Ml Syringe) 1 mg IV NOW STA Stop: 07/12/20 10:54 Last Admin: 07/12/20 10:55 Dose: 1 mg Documented by: [id number] Hydromorphone HCl (Hydromorphone Inj 2 Mg/Ml Syr/Vial) 1.5 mg IV NOW STA Stop: 07/12/20 14:42 Last Admin: 07/12/20 15:28 Dose: 1.5 mg Documented by: [id number] Sodium Chloride (Nss) 500 mls @ 999 mls/hr IV .Q31M TRAMAINE Stop: 07/12/20 10:15 Last Infusion: 07/12/20 10:28 Dose: 0 mls/hr Documented by: [id number] Admin: 07/12/20 09:56 Dose: 999 mls/hr Documented by: [id number] Dexamethasone Sodium Phosphate (10 mg/ Syringe) 2.5 mls @ 1 mls/min IV ONE ONE Stop: 07/12/20 16:02 Last Admin: 07/12/20 16:07 Dose: 1 mls/min Documented by: [id number] Ioversol (Optiray 320 125ml) 120 ml IV ONCE ONE Stop: 07/12/20 11:11 Last Admin: 07/12/20 11:10 Dose: 120 ml Documented by: [id number] Nystatin (Nystatin Susp 500,000 U/5 Ml Udc) 10 ml PO NOW STA Stop: 07/12/20 14:42 Last Admin: 07/12/20 16:06 Dose: Not Given Documented by: [id number] Ondansetron HCl (Ondansetron Inj 2 Mg/Ml 2 Ml Vial) 4 mg IV NOW STA Stop: 07/12/20 09:46 Last Admin: 07/12/20 09:55 Dose: 4 mg Documented by: [id number] Medical Decision Making Differential Diagnosis Pancoast syndrome, lung mass, esophagitis, MS, PE, pneumonia Medical Records Attestation: I reviewed the patient's medical records. I did perform a limited focused review of portions of the patient's old chart on the electronic medical record. The patient was admitted to [facility] last month for lung cancer to the left upper lobe with mets to the liver. He also has Pancoast syndrome with nerve compression in the left arm. He was treated aggressively with opiates as well as dexamethasone. He was seen by radiation oncology on the 13 of this month. Home Medications Current Medication List: was personally reviewed by me Laboratory Data Attestation: I reviewed the patient's lab results. Result diagrams: 07/12/20 09:29 07/12/20 09:29 Lab Results 07/12/20 07/12/20 07/12/20 Range/Units 09:29 09:29 09:29 WBC 20.00 H (4.8-10.8) K/uL RBC 4.29 L (4.7-6.1) M/uL Hgb 14.5 (14.0-18.0) g/dL Hct 43.3 (42-52) % MCV 100.9 H (80-100) fL MCH 33.8 (25-34) pg MCHC 33.5 (32-36) g/dL RDW Std Deviation 50.8 H (36.4-46.3) fL RDW Coeff of Ryan 13.9 (11.5-14.5) % Plt Count 466 H (130-400) K/uL MPV 9.7 (7.4-10.4) fL Immature Gran % (Auto) 0.6 % Neut % (Auto) 72.3 % Lymph % (Auto) 18.6 % Brule % (Auto) 6.4 % Eos % (Auto) 2.0 % Baso % (Auto) 0.1 % Neut # (Auto) 14.48 H (1.4-6.5) K/uL Lymph # (Auto) 3.72 H (1.2-3.4) K/uL Brule # (Auto) 1.27 H (0.11-0.59) K/uL Eos # (Auto) 0.40 (0-0.5) K/uL Baso # (Auto) 0.01 (0-0.2) K/uL Immature Gran # (Auto) 0.12 H (0.00-0.02) K/uL PT (9.0-12.0) Seconds INR (0.9-1.1) APTT (21.0-31.0) Seconds PTT Ratio D-Dimer Cancelled Sodium Cancelled Potassium Cancelled Chloride Cancelled Carbon Dioxide Cancelled Anion Gap Cancelled BUN Cancelled Creatinine Cancelled Est Cr Clr Drug Dosing Cancelled Est GFR ( Amer) Cancelled Est GFR (Non-Af Amer) Cancelled BUN/Creatinine Ratio Cancelled Glucose Cancelled Calcium Cancelled Total Bilirubin Cancelled AST Cancelled ALT Cancelled Alkaline Phosphatase Cancelled Troponin I (0-0.045) ng/ml Total Protein Cancelled Albumin Cancelled Globulin Cancelled Albumin/Globulin Ratio Cancelled Lipase (73-393) U/L Procalcitonin (0-0.5) ng/ml COVID-19 Eval Order SARS-CoV-2, RNA, NAAT (NEGATIVE) 07/12/20 07/12/20 07/12/20 Range/Units 09:29 09:29 09:29 WBC (4.8-10.8) K/uL RBC (4.7-6.1) M/uL Hgb (14.0-18.0) g/dL Hct (42-52) % MCV (80-100) fL MCH (25-34) pg MCHC (32-36) g/dL RDW Std Deviation (36.4-46.3) fL RDW Coeff of Ryan (11.5-14.5) % Plt Count (130-400) K/uL MPV (7.4-10.4) fL Immature Gran % (Auto) % Neut % (Auto) % Lymph % (Auto) % Brule % (Auto) % Eos % (Auto) % Baso % (Auto) % Neut # (Auto) (1.4-6.5) K/uL Lymph # (Auto) (1.2-3.4) K/uL Brule # (Auto) (0.11-0.59) K/uL Eos # (Auto) (0-0.5) K/uL Baso # (Auto) (0-0.2) K/uL Immature Gran # (Auto) (0.00-0.02) K/uL PT 10.2 (9.0-12.0) Seconds INR 1.0 (0.9-1.1) APTT 27.1 (21.0-31.0) Seconds PTT Ratio 1.0 D-Dimer 910 H* Sodium 133 L Potassium 3.9 Chloride 97 L Carbon Dioxide 28 Anion Gap 7.0 BUN 23 H Creatinine 0.87 Est Cr Clr Drug Dosing 91.8 Est GFR ( Amer) 108.0 Est GFR (Non-Af Amer) 93.2 BUN/Creatinine Ratio 26.0 H Glucose 94 Calcium 9.9 Total Bilirubin 0.6 AST 12 L ALT 59 Alkaline Phosphatase 96 Troponin I < 0.015 (0-0.045) ng/ml Total Protein 8.2 Albumin 3.7 Globulin 4.5 H Albumin/Globulin Ratio 0.8 L Lipase 762 H (73-393) U/L Procalcitonin < 0.05 (0-0.5) ng/ml COVID-19 Eval Order SARS-CoV-2, RNA, NAAT (NEGATIVE) 07/12/20 07/12/20 Range/Units 12:00 12:00 WBC (4.8-10.8) K/uL RBC (4.7-6.1) M/uL Hgb (14.0-18.0) g/dL Hct (42-52) % MCV (80-100) fL MCH (25-34) pg MCHC (32-36) g/dL RDW Std Deviation (36.4-46.3) fL RDW Coeff of Ryan (11.5-14.5) % Plt Count (130-400) K/uL MPV (7.4-10.4) fL Immature Gran % (Auto) % Neut % (Auto) % Lymph % (Auto) % Brule % (Auto) % Eos % (Auto) % Baso % (Auto) % Neut # (Auto) (1.4-6.5) K/uL Lymph # (Auto) (1.2-3.4) K/uL Brule # (Auto) (0.11-0.59) K/uL Eos # (Auto) (0-0.5) K/uL Baso # (Auto) (0-0.2) K/uL Immature Gran # (Auto) (0.00-0.02) K/uL PT (9.0-12.0) Seconds INR (0.9-1.1) APTT (21.0-31.0) Seconds PTT Ratio D-Dimer Sodium Potassium Chloride Carbon Dioxide Anion Gap BUN Creatinine Est Cr Clr Drug Dosing Est GFR ( Amer) Est GFR (Non-Af Amer) BUN/Creatinine Ratio Glucose Calcium Total Bilirubin AST ALT Alkaline Phosphatase Troponin I (0-0.045) ng/ml Total Protein Albumin Globulin Albumin/Globulin Ratio Lipase (73-393) U/L Procalcitonin (0-0.5) ng/ml COVID-19 Eval [facility] SARS-CoV-2, RNA, NAAT NEGATIVE (NEGATIVE) Imaging Data Radiologist's Impression: XR chest 1V portable CLINICAL HISTORY: Atypical chest pain COMPARISON STUDY: 06/12/2020 FINDINGS: The heart is borderline enlarged. There is no failure. There is no focal pulmonary consolidation. There are no pleural effusions. Postsurgical ch anges are present within the cervical spine.[ IMPRESSION: No active disease in the chest. ACT 112: Negative or not required by law. Electronically signed by: Dima Reyes M.D. 07/12/2020 10:22 AM Dictated: 07/12/20 1022 Transcribed: 07/12/20 1022 CHEST CTA for PULMONARY ART[address] DOSE: 306.55 mGy.cm HISTORY: Left-sided chest pain. TECHNIQUE: Multiaxial CT images of the chest were performed following the intravenous administration of contrast to evaluate the pulmonary arteries. Maximal intensity projection images were also obtained. A dose lowering technique was utilized adhering to the principles of ALARA. COMPARISON STUDY: Chest CT 06/11/2020 FINDINGS: Partially visualized cervical spinal fusion hardware. Limited views of the upper abdomen demonstrate normal spleen and and adrenal glands. No change in the 1.7 cm segment 7 hypodense lesion within the liver. No pleural or pericardial effusions. The heart is normal in size. Normal esophagus. No change in the left hilar lymphadenopathy/mass. This measures approximately 3.5 x 2.2 cm. This results in severe narrowing of a left upper lobe segmental pulmonary as well as moderate narrowing of a left upper lobe segmental bronchus. Is also similar to the prior study. Borderline enlarged right hilar lymph nodes also remain stable. Redemonstration of the destructive left apical mass. This measures approximately 5.2 x 3.0 cm. This results in destruction of the left posterior second rib. Bullous emphysema is again noted within the lungs. Stable 5 mm nodule within the lingula on image 133. Patchy nodular groundglass densities within the base of the bilateral lower lobes have progressed. There is mild diffuse bronchial wall thickening most pronounced within the lower lobes and a few partially opacified bilateral lower lobe subsegmental bronchi. This is also progressed. Small patchy groundglass density within the lingula is new from the prior study. Focal lobular consolidation within the right lung apex pos teriorly is also unchanged. This measures 3 cm. This could be due to chronic scarring. Stable 5 mm subpleural nodule within the right upper lobe abutting the mediastinum on image 172. Stable 4 mm nodule within the right upper lobe on image 159. Stable 5 mm nodule within the right middle lobe on image 112. A few additional stable subcentimeter subpleural nodules within the right middle lobe are also stable. Normal caliber thoracic aorta with no evidence for dissection. No evidence for pulmonary embolus. IMPRESSION: 1. No evidence for pulmonary embolus. 2. No change in the destructive left apical mass and associated left hilar lymphadenopathy as described above. Prominent right hilar lymph nodes are also stable. 3. No change in 1.7 cm hypodense lesion within the right hepatic lobe. This may represent a metastasis. 4. Emphysema. 5. Patchy groundglass densities within the base of the lower lobes and lingula which have progressed in the interval. This could be due to a pneumonia such as aspiration or a viral process. 6. A few scattered subcentimeter indeterminate pulmonary nodules remain unchanged. These bear watching on future examinations. ACT 112: Negative or not required by law. Electronically signed by: Gene Woodard M.D. 07/12/2020 11:34 AM Dictated: 07/12/201119 Transcribed: 07/12/201119 ECG Data Attestation: I personally reviewed and interpreted this ECG as follows: Indication: + chest pain Rate (beats per minute): 86 Rhythm: + normal sinus ECG Intervals/blocks: + Normal QRS ECG ST segments: no ST elevation ECG Findings: no PVCs MDM Narrative I did evaluate the patient as noted above. He is presenting with significant difficulty taking p.o. since yesterday and an acute worsening of his chest and back pain. IV access was established. I did place an order for continuous cardiac monitoring. The monitor showed normal sinus rhythm at a rate of 84 bpm. I did order and personally review the patient's 12-lead EKG as described above. There is no evidence of acute ischemia. I did order and personally reviewed the images of the patient's chest x-ray as described above. There is no evidence of pneumonia. No pneumothorax. I did order and review the patient's blood work as noted in the electronic medical record. His white count is significantly elevated at 20,000. He denies any fevers and has been on Decadron since last month. Platelet count is elevated at 466. He is not anemic. Electrolytes demonstrate a mild hyponatremia at 133. Chloride is 97. Renal function is preserved. D-dimer is elevated over 900. Troponin is negative. Lipase is elevated over 700. After discussion with the patient, I did order a CT angiogram of the chest. I did review the images myself as well as the radiology report as described above. There is no evidence of pulmonary embolism. He does have some patchy groundglass densities in the base of the lower lobes and lingula which may be secondary to aspiration versus a viral process. COVID-19 testing was obtained and was negative. I did treat the patient with 0.5 mg of Dilaudid IV and Zofran IV. He was given normal saline IV as well. I then reassessed the patient. He was still in pain and had to be given a milligram of Dilaudid IV prior to his CT scan. He is feeling better but still having pain. I did discuss the case with Dr. Khan, his oncologist, who agreed with my plan to hospitalize the patient for further care and evaluation. The case was discussed with the employment case manager and the hospitalist was informed. Impression & Plan Dysphagia, Leukocytosis, Left-sided chest pain, Pancoast syndrome, Hyponatremia Discharge Plan Visit Data Chief Complaint: Cardiac Assessment Stated Complaint: Lung Cancer ED Provider: Nader Ellis Discharge Problem: Dysphagia, Leukocytosis, Left-sided chest pain, Pancoast syndrome, Hyponatremia Patient Disposition: Admitted As Inpatient Discharge Instructions Interventions: ED Discharge Assessment Last Done: 07/12/20 14:44
[2020-07-12 10:09] LABS: Alanine Aminotransferase 59 U/L (12-78); Albumin Level 3.7 gm/dl (3.4-5.0); Aspartate Aminotransferase 12 U/L (15-37); Blood Urea Nitrogen 23 mg/dl (7-18); Calcium 9.9 mg/dl (8.5-10.1); Carbon Dioxide 28 mmol/L (21-32); Chloride 97 mmol/L (98-107); Creatinine Clr Calc Pharmacy 91.8 ml/min; Est GFR (Non-African American) 93.2; Glucose 94 mg/dl (70-99); Lipase 762 U/L (73-393); Potassium 3.9 mmol/L (3.5-5.1); Sodium 133 mmol/L (136-145)
[2020-07-12 10:13] LABS: Albumin Globulin Ratio 0.8 (0.9-2); Alkaline Phosphatase 96 U/L (45-117); Bilirubin,Total 0.6 mg/dl (0.2-1); Globulin 4.5 gm/dl (2.5-4.0); Total Protein 8.2 gm/dl (6.4-8.2); Troponin I < 0.015 ng/ml (0-0.045)
[2020-07-12 10:18] LABS: Partial Thromboplastin Time 27.1 Seconds (21.0-31.0); Prothrombin Time 10.2 Seconds (9.0-12.0)
[2020-07-12 10:20] LABS: D Dimer 910 ug/L FEU (0-500)
--- NOTE | 2020-07-12 10:23 | XRay Report ---
XR chest 1V portable CLINICAL HISTORY: Atypical chest pain COMPARISON STUDY: 06/12/2020 FINDINGS: The heart is borderline enlarged. There is no failure. There is no focal pulmonary consolid ation. There are no pleural effusions. Postsurgical changes are present within the cervical spine.[ IMPRESSION: No active disease in the chest. ACT 112: Negative or not required by law. Electronically signed by: Dima Reyes M.D. 07/12/2020 10:22 AM
[2020-07-12] MEDS ORDERED: HYDROmorphone INJ 1 MG/ML SYRINGE IV STA (10:53)
[2020-07-12] MEDS ORDERED: OPTIRAY 320 125ml IV ONE (11:10)
--- NOTE | 2020-07-12 11:35 | CT Scan Report ---
CHEST CTA for PULMONARY ARTERIES CT DOSE: 306.55 mGy.cm HISTORY: Left-sided chest pain. TECHNIQUE: Multiaxial CT images of the chest were performed following the intravenous administration of contrast to evaluate the pulmonary arteries. Maximal intensity projection images were also obtaine d. A dose lowering technique was utilized adhering to the principles of ALARA. COMPARISON STUDY: Chest CT 06/11/2020 FINDINGS: Partially visualized cervical spinal fusion hardware. Limited views of the upper abdomen de monstrate normal spleen and and adrenal glands. No change in the 1.7 cm segment 7 hypodense lesion wi thin the liver. No pleural or pericardial effusions. The heart is normal in size. Normal esophagus. N o change in the left hilar lymphadenopathy/mass. This measures approximately 3.5 x 2.2 cm. This resul ts in severe narrowing of a left upper lobe segmental pulmonary as well as moderate narrowing of a le ft upper lobe segmental bronchus. Is also similar to the prior study. Borderline enlarged right hilar lymph nodes also remain stable. Redemonstration of the destructive left apical mass. This measures a pproximately 5.2 x 3.0 cm. This results in destruction of the left posterior second rib. Bullous emph ysema is again noted within the lungs. Stable 5 mm nodule within the lingula on image 133. Patchy nod ular groundglass densities within the base of the bilateral lower lobes have progressed. There is mil d diffuse bronchial wall thickening most pronounced within the lower lobes and a few partially opacif ied bilateral lower lobe subsegmental bronchi. This is also progressed. Small patchy groundglass dens ity within the lingula is new from the prior study. Focal lobular consolidation within the right lung apex posteriorly is also unchanged. This measures 3 cm. This could be due to chronic scarring. Stabl e 5 mm subpleural nodule within the right upper lobe abutting the mediastinum on image 172. Stable 4 mm nodule within the right upper lobe on image 159. Stable 5 mm nodule within the right middle lobe o n image 112. A few additional stable subcentimeter subpleural nodules within the right middle lobe ar e also stable. Normal caliber thoracic aorta with no evidence for dissection. No evidence for pulmona ry embolus. IMPRESSION: 1. No evidence for pulmonary embolus. 2. No change in the destructive left apical mass and associated left hilar lymphadenopathy as describ ed above. Prominent right hilar lymph nodes are also stable. 3. No change in 1.7 cm hypodense lesion within the right hepatic lobe. This may represent a metastasi s. 4. Emphysema. 5. Patchy groundglass densities within the base of the lower lobes and lingula which have progressed in the interval. This could be due to a pneumonia such as aspiration or a viral process. 6. A few scattered subcentimeter indeterminate pulmonary nodules remain unchanged. These bear watchin g on future examinations. ACT 112: Negative or not required by law. Electronically signed by: Gene Woodard M.D. 07/12/2020 11:34 AM
--- NOTE | 2020-07-12 12:38 | History & Physical Report ---
Date of Service July 12, 2020 Assessment & Plan (1) Pancoast tumor of left lung: Mr. Butler is a 60-year-old male with a history of Tobacco Abuse, Chronic Back Pain, Hypertension, Cervical Degenerative Disc Disease s/p Surgical Intervention, GERD, recently discovered Cardiomyopathy, and Pancoast Tumor (JARED) Adenocarcinoma with Metastases who presented to [facility] ER today with intractable radicular left chest, shoulder, and arm pain secondary to his Pancoast tumor. Patient is complaining of worsening left-sided chest pain radiating to his posterior left shoulder, down the inside of his left arm, into his left hand and fingertips. He has had the pain for weeks and was admitted at [facility] where he was treated with opiates and steroids. He has had 4 radiation treatments so far and states that beginning yesterday afternoon that he has developed worsening pain and difficulty swallowing. He describes the pain as a sharp left sided chest pain, rating it 9/10 in severity. The pain is worse when he lies down on his back or left shoulder. He does get some relief with the morphine he takes at home, but neither Oxycodone or Oxycontin relieves his pain. He denies any associated with shortness of breath but he does complain of painful swallowing. He has only been able to drink about 1/2 cup of water since yesterday. He ate an apple this morning but it took him 30 minutes to eat it. He denies any vomiting, fevers, focal abdominal pain, diarrhea, or any urinary symptoms. He denies any cough, sputum production, or hemoptysis. Patient has been having left arm weakness for the last 1 to 2 months. He is also been having sweats and cold intolerance predominantly unilaterally. He denies any weight loss. Patient initially presented to [facility] ER on 06/11/2020 because of weakness of his left arm, radicular pain, and numbness. He underwent a CT chest which demonstrated Pancoast tumor, left lower paratracheal hilar conglomerate lymphadenopathy was noted. Hypodense metastatic hepatic lesions were found as well. He subsequently underwent a CT-guided biopsy at [facility] on 06/18/2020 which revealed poorly differentiated pulmonary adenocarcinoma. Orthopedic surgery was consulted in [place] due to the Pancoast tumor compressing on C8 and T1 nerve roots. He underwent an MRI of the spine at that location. Orthopedic surgery noted that "he does have some weakness diffusely in the left upper extremity, but this does not match the findings of the MRI as there is no cord compression of the spinal cord or the nerve roots. He has weakness may be related to pain or possible compression distal to the nerve roots.". -- Admit for pain control. -- IV Decadron 10 mg daily then convert to tapering steroid dose upon discharge. -- IV Hydromorphone 1 mg q1h PRN. -- Continue Morphine 30 mg po b.i.d.. -- Gabapentin 100 mg t.i.d.. -- Consider starting Cymbalta. -- Consult Pain Management. -- Consult Oncology. -- Consult Radiation Oncology. (2) Cancer associated pain: -- As outlined above. (3) HTN (hypertension): -- Continue Lisinopril 30 mg daily. (4) Tobacco abuse: -- Strongly encouraged to stop smoking. (5) Glaucoma: -- Continue Latanoprost. (6) GERD (gastroesophageal reflux disease): -- Continue PPI. History of Present Illness Chief Complaint: -- Chest Pain. -- Pancoast Tumor (JARED) Adenocarcinoma with Metastases. Primary Care Provider: Gerard Barnes Mr. Butler is a 60-year-old male with a history of Tobacco Abuse, Chronic Back Pain, Hypertension, Cervical Degenerative Disc Disease s/p Surgical Intervention, GERD, recently discovered Cardiomyopathy, and Pancoast Tumor (JARED) Adenocarcinoma with Metastases who presented to [facility] ER today complaining of worsening left-sided chest pain radiating to his posterior left shoulder, down the inside of his left arm, into his left hand and fingertips. He has had the pain for weeks and was admitted at [facility] where he was treated with opiates and steroids. He has had 4 radiation treatments so far and states that beginning yesterday afternoon that he has developed worsening pain and d ifficulty swallowing. He describes the pain as a sharp left sided chest pain, rating it 9/10 in severity. The pain is worse when he lies down on his back or left shoulder. He does get some relief with the morphine he takes at home, but neither Oxycodone or Oxycontin relieves his pain. He denies any associated with shortness of breath but he does complain of painful swallowing. He has only bee n able to drink about 1/2 cup of water since yesterday. He ate an apple this morning but it took him 30 minutes to eat it. He denies any vomiting, fevers, focal abdominal pain, diarrhea, or any urinary symptoms. He denies any cough, sputum production, or hemoptysis. Patient has been having left arm weakness for the last 1 to 2 months. He is also been having sweats and cold intolerance predominantly unilaterally. He denies any weight loss. HISTORICAL BACKGROUND: Patient presented to [facility] ER on 06/11/2020 because of weakness of his left arm, radicular pain, and numbness. He underwent a CT chest which demonstrated Pancoast tumor, left lower paratracheal hilar conglomerate lymphadenopathy was noted. Hypodense metastatic hepatic lesions were found as well. He subsequently underwent a CT-guided biopsy at [facility] on 06/18/2020 which revealed poorly differentiated pulmonary adenocarcinoma. Orthopedic surgery was consulted in [place] due to the Pancoast tumor compre ssing on C8 and T1 nerve roots. He underwent an MRI of the spine at that location. Orthopedic surgery noted that "he does have some weakness diffusely in the left upper extremity, but this does not match the findings of the MRI as there is no cord compression of the spinal cord or the nerve roots. He has weakness may be related to pain or possible compression distal to the nerve roots.". CT abdomen on 06/13/2020 revealed at least 3 hepatic hypodensities concerning for possible malignancy. CT head on 06/13/2020 demonstrated no acute intracranial findings. Patient was discharged home on 06/18/2020. He was also discharged home with pain medications including 30 mg twice daily OxyContin, 10 mg every 4 as needed oxycodone. He also had an Echocardiogram recently demonstrating decreased LV systolic function with an LVEF of 40% to 45%. Patient was evaluated by interventional pulmonology who recommended evaluation by thoracic surgery given his Pancoast tumor. Patient recently began Radiation Treatments with Dr. Manning. His Oncologist is Dr. Su. Patient has a history of [id number] smoking history, and he continues to smoke. Allergies Allergy/AdvReac Type Severity Reaction Status Date / Time No Known Allergies Allergy Verified 07/15/20 10:54 Home Medications Medication Instructions Recorded Confirmed Type latanoprost 1 drp OPB HS 11/05/19 01/22/21 History omeprazole 20 mg PO QAM 04/25/19 07/12/20 History lisinopril 30 mg PO QAM 01/10/20 07/12/20 History acetaminophen [Tylenol 8 Hour] 650 mg PO DIRECTED PRN 01/14/20 07/12/20 History cyclobenzaprine 10 mg PO UD PRN 06/11/20 07/12/20 History lorazepam 0.5 mg tablet 0.5 mg PO DAILY #1 tab 07/03/20 07/12/20 Rx gabapentin 100 mg PO TID 30 Days #90 cap 07/14/20 07/15/20 Rx morphine 15 mg PO Q6 PRN 7 Days #28 tab 07/14/20 07/15/20 Rx morphine 30 mg PO BID 7 Days #14 tab 07/14/20 07/15/20 Rx nicotine (polacrilex) [Nicorette] 4 mg MT PRN PRN 14 Days #30 ea 07/14/20 07/15/20 Rx nicotine [Nicoderm CQ] 21 mg TRANSDERMAL QAM 14 Days #14 07/14/20 07/15/20 Rx ea nystatin 10 ml PO QID 7 Days #280 ml 07/14/20 07/15/20 Rx dexamethasone 20 mg tablet 10 mg PO DAILY tab 07/15/20 07/15/20 History Past Med/Surg History Medical History Anxiety Cervical disc disease prescribed prednisone taper x6 days- to be completed approximately 8/2 Consciousness alteration COPD (chronic obstructive pulmonary disease) stable GERD (gastroesophageal reflux disease) controlled Glaucoma History of migraine HTN (hypertension) Malignant neoplasm of upper lobe, left bronchus or lung Pancoast tumor Tobacco abuse Weakness of left upper extremity Surgical History History of eyelid surgery History of surgery mult benign tumors removed from neck History of surgery benign growth removed from RLE History of tooth extraction History of vocal cord polypectomy S/P cervical spinal fusion Family History Father Cancer Myocardial infarction Grandmother (Maternal) Cancer Other Asthma Diabetes Heart disease Social History Smoking Status: Heavy tobacco smoker Tobacco Type: Cigarettes Age Started Using Tobacco: 14; packs per day: 2; Cigarettes Per Day: 40 (tobacco use x 45+ years); Second Hand Exposure: No; Do You Dip or Chew Tobacco: No; Tobacco Cessation Education Requested by Patient: No Hx Alcohol Use: No Hx Substance Use: No Preferred Language: Frisian Communication Ability: Effective Visual Impairment: No Limitations [employer] Required: No Beliefs That Will Affect Care: None marital status: Current Living Situation: Spouse and Family Current Living Situation Comment: Lives w/spouse and 4 grandchildren current occupation: currently on short term disability from [employer] in [place] How many Children do You have: 2 Other Information That Helps Us Care for You: Yes ("I like lots of coffee, all day long") other: currently raising adopted 4 grandchildren Feels Safe at Home: Yes Childhood Exposure to Second-Hand Smoke: Yes caffeine: Yes (coffee 3-4 pots/day) during the past year weight has: remained stable Dental Care, Regularly: No Physical Activity Frequency: Does not Exercise Physical Activity Frequency Comment: limited due to pain and limited rom of lue Seatbelt Use: other Sunscreen Use: No Assistive Devices: None Review of Systems Review of Systems: All systems reviewed & are unremarkable except as noted in Subjective Physical Exam Physical Exam: GENERAL: Patient winces with movement. HEENT: Head is atraumatic, normocephalic. EOM's intact. Facies symmetric. No perioral cyanosis. NECK: No JVD. JVP is at the level of the clavicle sitting upright. Carotid upstrokes are + 2 bilaterally. CHEST/LUNGS: Diminished breath sounds throughout, no wheezes, rales, or crackles. CVS: S1 and S2 are regular without obvious murmurs, gallops, or rubs. PMI is nondisplaced. No lifts, heaves, or thrills. No abdominal aortic or renal bruits. ABDOMINAL EXAM: Bowel sounds are present. No masses, organomegaly, or tenderness. EXTREMITIES: No clubbing or cyanosis. No edema. Intact posterior tibial and radial pulses bilaterally. NEUROLOGIC EXAM: Patient is awake, alert, and oriented. He is cooperative. Answers questions appropriately. Speech is clear. Muscular atrophy of the left arm and hand. MUSCULOSKELETAL EXAM: Tender to palpation along the left posterior shoulder, chest mildly tender to palpation. EKG 07/12/2020: -- NSR at 86 bpm. -- Normal tracing. -- No change compared to 06/12/2020 tracing. Results & Data Results & Data ([facility]) Vital Signs (Past 12 Hours) Vital Signs Temp Pulse Resp BP Pulse Ox 07/12/20 11:22 88 22 160/89 H 98 07/12/20 11:00 80 14 128/78 97 07/12/20 10:30 85 14 119/76 95 07/12/20 10:00 87 18 109/74 94 07/12/20 09:30 89 22 126/81 97 07/12/20 09:05 36.4 C L 90 22 152/92 H 98 Laboratory Results Laboratory Results - last 24 hr 07/12/20 07/12/20 07/12/20 09:29 09:29 09:29 WBC 20.00 H RBC 4.29 L Hgb 14.5 Hct 43.3 MCV 100.9 H MCH 33.8 MCHC 33.5 RDW Std Deviation 50.8 H RDW Coeff of Ryan 13.9 Plt Count 466 H MPV 9.7 Immature Gran % (Auto) 0.6 Neut % (Auto) 72.3 Lymph % (Auto) 18.6 [place] % (Auto) 6.4 Eos % (Auto) 2.0 Baso % (Auto) 0.1 Neut # (Auto) 14.48 H Lymph # (Auto) 3.72 H [place] # (Auto) 1.27 H Eos # (Auto) 0.40 Baso # (Auto) 0.01 Immature Gran # (Auto) 0.12 H PT INR APTT PTT Ratio D-Dimer Cancelled Sodium Cancelled Potassium Cancelled Chloride Cancelled Carbon Dioxide Cancelled Anion Gap Cancelled BUN Cancelled Creatinine Cancelled Est Cr Clr Drug Dosing Cancelled Est GFR ( Amer) Cancelled Est GFR (Non-Af Amer) Cancelled BUN/Creatinine Ratio Cancelled Glucose Cancelled Calcium Cancelled Total Bilirubin Cancelled AST Cancelled ALT Cancelled Alkaline Phosphatase Cancelled Troponin I Total Protein Cancelled Albumin Cancelled Globulin Cancelled Albumin/Globulin Ratio Cancelled Lipase Procalcitonin COVID-19 Eval Order SARS-CoV-2, RNA, NAAT 01/22/21 01/22/21 01/22/21 09:29 09:29 09:29 WBC RBC Hgb Hct MCV MCH MCHC RDW Std Deviation RDW Coeff of Ryan Plt Count MPV Immature Gran % (Auto) Neut % (Auto) Lymph % (Auto) [place] % (Auto) Eos % (Auto) Baso % (Auto) Neut # (Auto) Lymph # (Auto) [place] # (Auto) Eos # (Auto) Baso # (Auto) Immature Gran # (Auto) PT 10.2 INR 1.0 APTT 27.1 PTT Ratio 1.0 D-Dimer 910 H* Sodium 133 L Potassium 3.9 Chloride 97 L Carbon Dioxide 28 Anion Gap 7.0 BUN 23 H Creatinine 0.87 Est Cr Clr Drug Dosing 91.8 Est GFR ( Amer) 108.0 Est GFR (Non-Af Amer) 93.2 BUN/Creatinine Ratio 26.0 H Glucose 94 Calcium 9.9 Total Bilirubin 0.6 AST 12 L ALT 59 Alkaline Phosphatase 96 Troponin I < 0.015 Total Protein 8.2 Albumin 3.7 Globulin 4.5 H Albumin/Globulin Ratio 0.8 L Lipase 762 H Procalcitonin < 0.05 COVID-19 Eval Order SARS-CoV-2, RNA, NAAT 07/12/20 07/12/20 12:00 12:00 WBC RBC Hgb Hct MCV MCH MCHC RDW Std Deviation RDW Coeff of Ryan Plt Count MPV Immature Gran % (Auto) Neut % (Auto) Lymph % (Auto) [place] % (Auto) Eos % (Auto) Baso % (Auto) Neut # (Auto) Lymph # (Auto) [place] # (Auto) Eos # (Auto) Baso # (Auto) Immature Gran # (Auto) PT INR APTT PTT Ratio D-Dimer Sodium Potassium Chloride Carbon Dioxide Anion Gap BUN Creatinine Est Cr Clr Drug Dosing Est GFR ( Amer) Est GFR (Non-Af Amer) BUN/Creatinine Ratio Glucose Calcium Total Bilirubin AST ALT Alkaline Phosphatase Troponin I Total Protein Albumin Globulin Albumin/Globulin Ratio Lipase Procalcitonin COVID-19 Eval [facility] SARS-CoV-2, RNA, NAAT NEGATIVE Diagnostic Findings CTA 07/12/2020: 1. No evidence for pulmonary embolus. 2. No change in the destructive left apical mass and associated left hilar lymphadenopathy as described above. Prominent right hilar lymph nodes are also stable. 3. No change in 1.7 cm hypodense lesion within the right hepatic lobe. This may represent a metastasis. 4. Emphysema. 5. Patchy ground glass densities within the base of the lower lobes and lingula which have progressed in the interval. This could be due to a pneumonia such as aspiration or a viral process. 6. A few scattered subcentimeter indeterminate pulmonary nodules remain unchanged. These bear watching on future examinations. CXR 07/12/2020: -- No active disease in the chest. Medications Administered Discontinued Medications Hydromorphone HCl (Hydromorphone Inj 0.5 Mg/0.5 Ml Syr) 0.5 mg IV NOW STA Stop: 07/12/20 09:46 Last Admin: 07/12/20 09:55 Dose: 0.5 mg Documented by: [id number] Hydromorphone HCl (Hydromorphone Inj 1 Mg/Ml Syringe) 1 mg IV NOW STA Stop: 07/12/20 10:54 Last Admin: 07/12/20 10:55 Dose: 1 mg Documented by: [id number] Sodium Chloride (Nss) 500 mls @ 999 mls/hr IV .Q31M TRAMAINE Stop: 07/12/20 10:15 Last Infusion: 07/12/20 10:28 Dose: 0 mls/hr Documented by: [id number] Admin: 07/12/20 09:56 Dose: 999 mls/hr Documented by: [id number] Ioversol (Optiray 320 125ml) 120 ml IV ONCE ONE Stop: 07/12/20 11:11 Last Admin: 07/12/20 11:10 Dose: 120 ml Documented by: [id number] Ondansetron HCl (Ondansetron Inj 2 Mg/Ml 2 Ml Vial) 4 mg IV NOW STA Stop: 07/12/20 09:46 Last Admin: 07/12/20 09:55 Dose: 4 mg Documented by: [id number] Code Status & VTE Plan VTE Prophylaxis Plan VTE Prophylaxis will be ordered: Yes Supervising Physician Co-Signing Physician Notes I personally saw and examined the patient. 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 O/E oral thrush present, Chest - reduced air entry on left with crackles posteriorly throughout, Abdo SNT. 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 Start gabapentin and venlafaxine for neuropathic pain. IV dexamethasone as above. Consult pain management, palliative care, heme/onc and radiation oncology if still here on Wednesday. PG Care Time/CCT Total # of Minutes Spent Total Time Spent with Patient: Total time spent is greater than 50% in coordination of care (as documented) at patient's floor/unit and/or counseling patient:45 Coding Level of Care Code 88060 Initial Inpt Care Lvl 3 Diagnoses Pancoast tumor of left lung C34.12 Cancer associated pain G89.3 HTN (hypertension) I10 Tobacco abuse Z72.0 Glaucoma H40.9 GERD (gastroesophageal reflux disease) K21.9 Time Spent (min) 60
[2020-07-12] MEDS ORDERED: DEXAMETHASONE SOD INJ 10 MG/ML VIAL IV SCH (13:50)
[2020-07-12] MEDS ORDERED: NYSTATIN SUSP 500,000 U/5 ML UDC PO STA (14:41)
[2020-07-12] MEDS ORDERED: HYDROmorphone INJ 2 MG/ML SYR/VIAL IV STA (14:41)
[2020-07-12] MEDS ORDERED: ONDANSETRON INJ 2 MG/ML 2 ML VIAL IV PRN (15:26)
[2020-07-12] MEDS ORDERED: ENOXAPARIN INJ 40 MG/0.4 ML SYR SQ SCH (15:26)
[2020-07-12] MEDS ORDERED: ALUMINUM/MAGNESIUM/SIMETH (MAALOX MAX) 30 ML UDC PO PRN (15:26)
[2020-07-12] MEDS ORDERED: MAGNESIUM HYDROXIDE SUSP 30 ML UDC PO PRN (15:26)
[2020-07-12] MEDS ORDERED: DEXAMETHASONE SOD INJ 4 MG/ML VIAL IV SCH (15:26)
[2020-07-12] MEDS ORDERED: CYCLOBENZAPRINE HCL 10 MG TAB PO PRN (15:37)
[2020-07-12] MEDS ORDERED: ACETAMINOPHEN 325 MG TAB PO PRN (15:40)
[2020-07-12] MEDS ORDERED: MoRPHine SULFATE CR 15 MG TABCR PO PRN (15:41)
[2020-07-12] MEDS ORDERED: DEXAMETHASONE SOD PHOSPHATE 10 MG in SYRINGE 0 ML IV ONE (16:00)
[2020-07-12] MEDS: NYSTATIN SUSP 500,000 U/5 ML UDC PO SCH ×2 (16:05→21:13)
[2020-07-12] MEDS: GABAPENTIN 100 MG CAP PO SCH ×2 (16:31→21:13)
[2020-07-12] MEDS ORDERED: NICOTINE POLACRILEX 2 MG GUM MT PRN (17:08)
[2020-07-12] MEDS ORDERED: ALUMINUM/MAGNESIUM SUSP 30 ML UDC PO PRN (17:12)
[2020-07-12] MEDS: NICOTINE 21 MG/24 HR TDSY TD SCH (17:34)
[2020-07-12] MEDS: HYDROmorphone INJ 1 MG/ML SYRINGE IV PRN (19:57)
[2020-07-12] MEDS: MoRPHine SULFATE CR 15 MG TABCR PO SCH (21:13)
[2020-07-12] MEDS: ENOXAPARIN INJ 40 MG/0.4 ML SYR SQ SCH (21:13)
[2020-07-12] MEDS: LATANOPROST 0.005% OP SOLN 2.5 ML BTL OPB SCH (21:13)
[2020-07-12] MEDS: DEXAMETHASONE SOD PHOSPHATE 6 MG in SYRINGE 0 ML IV SCH (21:18)
[2020-07-13] MEDS: HYDROmorphone INJ 1 MG/ML SYRINGE IV PRN ×5 (00:18→23:39)
[2020-07-13] MEDS: DEXAMETHASONE SOD PHOSPHATE 6 MG in SYRINGE 0 ML IV SCH ×4 (05:07→21:26)
--- NOTE | 2020-07-13 07:25 | Electrocardiogram Report ---
Test Reason : Blood Pressure : / mmHG Vent. Rate : 086 BPM Atrial Rate : 086 BPM P-R Int : 168 ms QRS Dur : 084 ms QT Int : 370 ms P-R-T Axes : 053 -14 035 degrees QTc Int : 442 ms Poor data quality, interpretation may be adversely affected Normal sinus rhythm Normal ECG When compared with ECG of 12-JUN-2020 21:23, No significant change was found Confirmed by Conrado Peck ([id number]) on 07/13/2020 7:25:12 AM Referred By: REFERRED SELF Confirmed By:Conrado Peck
[2020-07-13 07:27] LABS: Eosinophils # (auto) 0.01 K/uL (0-0.5); Eosinophils % (auto) 0.1 %; Hematocrit (blood only) 37.2 % (42-52); Hemoglobin 12.7 g/dL (14.0-18.0); Immature Granulocytes # (auto) 0.06 K/uL (0.00-0.02); Immature Granulocytes % (auto) 0.4 %; Lymphocytes # (auto) 1.08 K/uL (1.2-3.4); Lymphocytes % (auto) 7.7 %; Mean Corpuscular Hemoglobin 33.8 pg (25-34); Mean Corpuscular Hgb Conc 34.1 g/dL (32-36); Mean Corpuscular Volume 98.9 fL (80-100); Mean Platelet Volume 10.1 fL (7.4-10.4); Monocytes # (auto) 0.45 K/uL (0.11-0.59); Monocytes % (auto) 3.2 %; Neutrophils # (auto) 12.34 K/uL (1.4-6.5); Neutrophils % (auto) 88.6 %; Platelet Count 416 K/uL (130-400); RDW Coefficient of Variation 13.7 % (11.5-14.5); RDW Standard Deviation 49.2 fL (36.4-46.3); Red Blood Count 3.76 M/uL (4.7-6.1); White Blood Count 13.94 K/uL (4.8-10.8)
[2020-07-13 07:55] LABS: BUN Creatinine Ratio 24.8 (10-20); Calcium 9.5 mg/dl (8.5-10.1); Creatinine Clr Calc Pharmacy 102.4 ml/min; Est GFR (African American) 112.9; Est GFR (Non-African American) 97.4; Potassium 4.4 mmol/L (3.5-5.1)
[2020-07-13] MEDS ORDERED: LORazepam 0.5 MG TAB PO PRN (09:00)
[2020-07-13] MEDS: MoRPHine SULFATE CR 15 MG TABCR PO SCH ×2 (09:05→20:32)
[2020-07-13] MEDS: NICOTINE 21 MG/24 HR TDSY TD SCH (09:06)
[2020-07-13] MEDS: NYSTATIN SUSP 500,000 U/5 ML UDC PO SCH ×4 (09:06→20:32)
[2020-07-13] MEDS: GABAPENTIN 100 MG CAP PO SCH ×3 (09:07→20:32)
[2020-07-13] MEDS: PANTOprazole 40 MG TAB PO SCH (09:08)
[2020-07-13] MEDS: lisinopril 10 MG TAB PO SCH (09:08)
--- NOTE | 2020-07-13 10:32 | Hospitalist Progress Note ---
Date of Service July 13, 2020 Assessment & Plan (1) Pancoast tumor of left lung: Mr. Butler is a 60-year-old male with a history of Tobacco Abuse, Chronic Back Pain, Hypertension, Cervical Degenerative Disc Disease s/p Surgical Intervention, GERD, recently discovered Cardiomyopathy, and Pancoast Tumor (JARED) Adenocarcinoma with Metastases who presented to [facility] ER today with intractable radicular left chest, shoulder, and arm pain secondary to his Pancoast tumor. -- IV Decadron 10 mg daily then convert to tapering steroid dose upon discharge. -- Gabapentin 100 mg t.i.d.. -- Consult Pain Management. -- Consult Oncology. -- Consult Radiation Oncology. Morphine sulfate immediate release 15 mg p.o. q.6 p.r.n. started, discussed with pharmacy Plan on continuing morphine extended release Continue IV hydromorphone on a p.r.n. basis if relief not acceptable with above medications (2) Cancer associated pain: -- As outlined above. (3) HTN (hypertension): -- Continue Lisinopril 30 mg daily. (4) Tobacco abuse: Continue nicotine replacement therapy (5) Glaucoma: -- Continue Latanoprost. (6) GERD (gastroesophageal reflux disease): -- Continue PPI. (7) Constipation: Start MiraLax on a daily basis. Milk of magnesia p.r.n. use Admission and Anticipated Discharge Date Admission Date: July 12, 2020 Subjective Overnight very minimal change in his pain and pain control. Continues to have significant pain along the left side of the chest radiating to the back. No new fevers chills, cough dyspnea or palpitations. Positive BM, no nausea vomiting diarrhea Normal urination. Patient notes that the pain medications only last up to an hour with each administration Review of Systems Review of Systems: All systems reviewed & are unremarkable except as noted in Subjective Physical Exam Physical Exam: Constitutional: WD/WN, vitals as above , sitting comfortably Respiratory: Effort normal, CTA B/L CV: RRR, no murmur, no edema Abdomen: normal bowel sounds, soft, nontender, no hepatosplenomegaly Results & Data Results & Data ([facility]) Vital Signs (Past 12 Hours) Vital Signs Temp Pulse Resp BP Pulse Ox 07/13/20 07:26 36.7 C 89 18 130/81 97 07/12/20 23:00 36.8 C 90 20 113/75 94 PG Care Time/CCT Total # of Minutes Spent Total Time Spent with Patient: Total time spent is greater than 50% in coordination of care (as documented) at patient's floor/unit and/or counseling patient: Coding Level of Care Code 77216 Subseq Hosp Care Lvl 2 Diagnoses Pancoast tumor of left lung C34.12 Cancer associated pain G89.3 HTN (hypertension) I10 Tobacco abuse Z72.0 Glaucoma H40.9 GERD (gastroesophageal reflux disease) K21.9 Constipation K59.00
--- NOTE | 2020-07-13 12:52 | Consultation ---
Date of Consultation July 13, 2020 Assessment & Plan (1) Pancoast tumor of left lun60 y/o male, chronic smoker who was recently diagnosed with JARED Pancoast tumor, also possibly metastatic to liver - clinical stage IVB, [id number] - currently undergoing palliative radiation for Pancoast syndrome - awaiting PET/CT, and molecular testing for EGFR, ALK, ROS1, PD-L1 to guide therapeutics - systemic therapy will be scheduled as an outpatient - followup with Dr. Gerard Su as an outpatient - discharge home when medically stable (2) Cancer associated pain: - pain control in the form of long acting opioid plus short acting opioid for breakthrough pain - pain management team on board - prophylactic bowel regimen - continue palliative radiation - dvt prophylaxis as an inpatient Thank you for the courtesy of this consultation. Feel free to contact if any questions. Present on Admission?: Yes History of Present Illness Reason for Consultation: Metastatic NSCLC (Pancoast tumor) Cancer associated pain Attending Physician: Tutu Richard, DO History of Present Illness 60 y/o male, 50 pack-year chronic smoker who was recently diagnosed with Pancoast Tumor (JARED), adenocarcinoma with possible metastases to liver, presented to [facility] ER yesterday complaining of worsening left-sided chest pain radiating to his left shoulder and left arm. He has had the pain for weeks and was admitted at [facility] where he was angel ated with opiates and steroids. He has had 4 radiation treatments so far and states that beginning yesterday afternoon that he has developed worsening pain and difficulty swallowing. He does get some relief with the morphine he takes at home. He denies shortness of breath, fever, chills, nausea, vomit, abdominal pain, bowel habit changes or urinary symptoms. Patient was seen and examined at bedside. Lab result and imaging studies were reviewed. (Excerpt from clinic visit note, Dr. Su) Adenocarcinoma of the lung, date of diagnosis 06/18/2020 (Pancoast tumor) stage indeterminant possible liver involvement. In summary, it was my pleasure to meet with Kris and his today in medical oncology clinic. This gentleman is presently in extreme discomfort particularly with radicular left upper extremity pain which is not surprising considering tumor invasion into the brachial plexus. He is having symptoms consistent of Tami's syndrome particularly unilateral diaphoresis. In the short-term, this gentleman will require palliative radiation therapy and aggressive anti- inflammatory therapy. Ultimately PET scan will be required to characterize the CT findings of 3 distinct hepatic lesions established at the [facility]. If PET is negative would then plan to proceed with chemo radiation moving forward. I will request pathology to [facility] send the specimen off for biomarkers particularly PDL 1, ROS1, ALK, and EGFR. I suspect he will require at least 1 to 2 weeks of palliative radiation therapy in the meantime once his pain is controlled obtain PET scan and plan for systemic therapy thereafter. I will continue to support his opioids as required moving forward. I plan to see him back in the office in 2 to 3 weeks to further discuss treatment options. Explanations provided today were well received. Patient questions were answered to satisfaction. Prognosis with this type of tumor is generally poor specifically if hepatic metastatic disease is confirmed. Allergies Allergy/AdvReac Type Severity Reaction Status Date / Time No Known Allergies Allergy Verified 07/12/20 10:28 Home Medications Medication Instructions Recorded Confirmed Type latanoprost 1 drp OPB HS 04/25/19 07/12/20 History omeprazole 20 mg PO QAM 04/25/19 07/12/20 History lisinopril 30 mg PO QAM 01/10/20 07/12/20 History acetaminophen [Tylenol 8 Hour] 650 mg PO DIRECTED PRN 01/14/20 07/12/20 History cyclobenzaprine 10 mg PO UD PRN 06/11/20 07/12/20 History morphine 30 mg capsule,extended 30 mg PO Q12H PRN cap 07/01/20 07/12/20 History release 24 hr multiphase oxycodone 10 mg tablet 10 mg PO Q4H PRN 07/01/20 07/12/20 History lorazepam 0.5 mg tablet 0.5 mg PO DAILY #1 tab 07/03/20 07/12/20 Rx Patient History Medical History Anxiety Cervical disc disease prescribed prednisone taper x6 days- to be completed approximately 8/2 Consciousness alteration COPD (chronic obstructive pulmonary disease) stable GERD (gastroesophageal reflux disease) controlled Glaucoma History of migraine HTN (hypertension) Malignant neoplasm of upper lobe, left bronchus or lung Pancoast tumor Tobacco abuse Weakness of left upper extremity Surgical History History of eyelid surgery History of surgery mult benign tumors removed from neck History of surgery benign growth removed from RLE History of tooth extraction History of vocal cord polypectomy S/P cervical spinal fusion Family History Father Cancer Myocardial infarction Grandmother (Maternal) Cancer Other Asthma Diabetes Heart disease Social History Smoking Status: Heavy tobacco smoker Tobacco Type: Cigarettes Age Started Using Tobacco: 14; packs per day: 2; Cigarettes Per Day: 40 (tobacco use x 45+ years); Second Hand Exposure: No; Do You Dip or Chew Tobacco: No; Hx Alcohol Use: No Hx Substance Use: No Preferred Language: Palestinian Communication Ability: Effective Visual Impairment: No Limitations Vacuum System Tester Required: No Beliefs That Will Affect Care: None marital status: Current Living Situation: Spouse and Family Current Living Situation Comment: Lives w/spouse and 4 grandchildren current occupation: currently on short term disability from [employer] in [place] How many Children do You have: 2 Other Information That Helps Us Care for You: No other: currently raising adopted 4 grandchildren Feels Safe at Home: Yes Safety Concerns: Feels Safe At This Time Childhood Exposure to Second-Hand Smoke: Yes caffeine: Yes (coffee 3-4 pots/day) during the past year weight has: remained stable Dental Care, Regularly: No Physical Activity Frequency: Does not Exercise Physical Activity Frequency Comment: limited due to pain and limited rom of lue Seatbelt Use: other Sunscreen Use: No Assistive Devices: None Review of Systems Review of Systems: Constitutional: Negative for weight loss, night sweats, or fever Eyes: Negative for event change of vision ENT: Negative for epistaxis, nasal discharge, sore throat, or deafness Cardiovascular: Negative for anginal type chest pain, palpitations, dizziness, diaphoresis Respiratory: Negative for new shortness of breath, hemoptysis, or purulent cough Gastrointestinal: Negative for diarrhea, hematemesis, melena, nausea, vomiting, or dyspepsia Integumentary (skin): Negative for rash or jaundice discoloration Genitourinary: Negative for urinary frequency, hematuria, or dysuria Neurological: Negative for seizure activity, headache, or dizziness. RADICULAR PAIN LEFT SHOULDER, ARM, AND WEAKNESS Lymphatic/Hematologic: Negative for petechiae, bleeding or new adenopathy Musculoskeletal: Negative for new joint or back pain Allergic/Immunologic: Negative for unusual rash or pruritus Physical Exam Physical Exam: Constitutional: Vitals are stable Eyes: Eyes are SHAHIDA EOMI without conjunctival erythema or icterus. ENT: External examination was negative for masses. Neck: Negative for masses or palpable thyromegaly. Respiratory: Lung sounds were DIMINISHED, BIBASILAR CRACKLES Cardiovascular: Heart was RRR without significant murmur, gallops or rubs. Gastrointestinal: The abdomen was soft with normal bowel sounds. Lymphatic system: There was no palpable peripheral lymphadenopathy. Musculoskeletal System: SIGNIFICANT PAIN, TENDERNESS, LIMITED ROM LEFT SHOULDER AND ARM Skin: The skin was negative for jaundice. Neurologic Exam: WEAKNESS LEFT ARM, HAND GRAB Extremities: Negative for edema or erythema Results & Data ([facility]) Vital Signs (Past 12 Hours) Vital Signs Temp Pulse Resp BP Pulse Ox 07/13/20 07:26 36.7 C 89 18 130/81 97 Laboratory Results Laboratory Results - last 24 hr 07/12/20 07/12/20 07/12/20 09:29 09:29 09:29 WBC 20.00 H RBC 4.29 L Hgb 14.5 Hct 43.3 MCV 100.9 H MCH 33.8 MCHC 33.5 RDW Std Deviation 50.8 H RDW Coeff of Ryan 13.9 Plt Count 466 H MPV 9.7 Immature Gran % (Auto) 0.6 Neut % (Auto) 72.3 Lymph % (Auto) 18.6 [place] % (Auto) 6.4 Eos % (Auto) 2.0 Baso % (Auto) 0.1 Neut # (Auto) 14.48 H Lymph # (Auto) 3.72 H [place] # (Auto) 1.27 H Eos # (Auto) 0.40 Baso # (Auto) 0.01 Immature Gran # (Auto) 0.12 H PT INR APTT PTT Ratio D-Dimer Cancelled Sodium Cancelled Potassium Cancelled Chloride Cancelled Carbon Dioxide Cancelled Anion Gap Cancelled BUN Cancelled Creatinine Cancelled Est Cr Clr Drug Dosing Cancelled Est GFR ( Amer) Cancelled Est GFR (Non-Af Amer) Cancelled BUN/Creatinine Ratio Cancelled Glucose Cancelled Calcium Cancelled Total Bilirubin Cancelled AST Cancelled ALT Cancelled Alkaline Phosphatase Cancelled Troponin I Total Protein Cancelled Albumin Cancelled Globulin Cancelled Albumin/Globulin Ratio Cancelled Lipase Procalcitonin COVID-19 Eval Order SARS-CoV-2, RNA, NAAT 07/12/20 07/12/20 07/12/20 09:29 09:29 09:29 WBC RBC Hgb Hct MCV MCH MCHC RDW Std Deviation RDW Coeff of Ryan Plt Count MPV Immature Gran % (Auto) Neut % (Auto) Lymph % (Auto) [place] % (Auto) Eos % (Auto) Baso % (Auto) Neut # (Auto) Lymph # (Auto) [place] # (Auto) Eos # (Auto) Baso # (Auto) Immature Gran # (Auto) PT 10.2 INR 1.0 APTT 27.1 PTT Ratio 1.0 D-Dimer 910 H* Sodium 133 L Potassium 3.9 Chloride 97 L Carbon Dioxide 28 Anion Gap 7.0 BUN 23 H Creatinine 0.87 Est Cr Clr Drug Dosing 91.8 Est GFR ( Amer) 108.0 Est GFR (Non-Af Amer) 93.2 BUN/Creatinine Ratio 26.0 H Glucose 94 Calcium 9.9 Total Bilirubin 0.6 AST 12 L ALT 59 Alkaline Phosphatase 96 Troponin I < 0.015 Total Protein 8.2 Albumin 3.7 Globulin 4.5 H Albumin/Globulin Ratio 0.8 L Lipase 762 H Procalcitonin < 0.05 COVID-19 Eval Order SARS-CoV-2, RNA, NAAT 07/12/20 07/12/20 12:00 12:00 WBC RBC Hgb Hct MCV MCH MCHC RDW Std Deviation RDW Coeff of Ryan Plt Count MPV Immature Gran % (Auto) Neut % (Auto) Lymph % (Auto) [place] % (Auto) Eos % (Auto) Baso % (Auto) Neut # (Auto) Lymph # (Auto) [place] # (Auto) Eos # (Auto) Baso # (Auto) Immature Gran # (Auto) PT INR APTT PTT Ratio D-Dimer Sodium Potassium Chloride Carbon Dioxide Anion Gap BUN Creatinine Est Cr Clr Drug Dosing Est GFR ( Amer) Est GFR (Non-Af Amer) BUN/Creatinine Ratio Glucose Calcium Total Bilirubin AST ALT Alkaline Phosphatase Troponin I Total Protein Albumin Globulin Albumin/Globulin Ratio Lipase Procalcitonin COVID-19 Eval [facility] SARS-CoV-2, RNA, NAAT NEGATIVE Diagnostic Findings CHEST CTA for PULMONARY ARTERIES ON 07/12/20 IMPRESSION: 1. No evidence for pulmonary embolus. 2. No change in the destructive left apical mass and associated left hilar lymphadenopathy as described above. Prominent right hilar lymph nodes are also stable. 3. No change in 1.7 cm hypodense lesion within the right hepatic lobe. This may represent a metastasis. 4. Emphysema. 5. Patchy groundglass densities within the base of the lower lobes and lingula which have progressed in the interval. This could be due to a pneumonia such as aspiration or a viral process. 6. A few scattered subcentimeter indeterminate pulmonary nodules remain unchanged. These bear watching on future examinations.
[2020-07-13] MEDS: MoRPHine SULFATE IR 15 MG TAB (IMMEDIATE RELEASE) PO PRN ×2 (15:38→21:26)
[2020-07-13] MEDS: ENOXAPARIN INJ 40 MG/0.4 ML SYR SQ SCH (20:32)
[2020-07-13] MEDS: LATANOPROST 0.005% OP SOLN 2.5 ML BTL OPB SCH (20:33)
[2020-07-14] MEDS: MoRPHine SULFATE IR 15 MG TAB (IMMEDIATE RELEASE) PO PRN (03:47)
[2020-07-14] MEDS: DEXAMETHASONE SOD PHOSPHATE 6 MG in SYRINGE 0 ML IV SCH ×2 (03:48→10:36)
[2020-07-14] MEDS: GABAPENTIN 100 MG CAP PO SCH (08:46)
[2020-07-14] MEDS: PANTOprazole 40 MG TAB PO SCH (08:47)
[2020-07-14] MEDS: lisinopril 10 MG TAB PO SCH (08:47)
[2020-07-14] MEDS: NICOTINE 21 MG/24 HR TDSY TD SCH (08:48)
[2020-07-14] MEDS: NYSTATIN SUSP 500,000 U/5 ML UDC PO SCH (08:48)
[2020-07-14] MEDS: MoRPHine SULFATE CR 15 MG TABCR PO SCH (08:54)
[2020-07-14] MEDS ORDERED: POLYETHYLENE (MIRALAX) 17 GM PACK PO SCH (09:00)
--- NOTE | 2020-07-14 11:42 | Discharge Summary ---
Date of Service July 14, 2020 Admission HPI Per Admitting Provider Mr. Butler is a 60-year-old male with a history of Tobacco Abuse, Chronic Back Pain, Hypertension, Cervical Degenerative Disc Disease s/p Surgical Intervention, GERD, recently discovered Cardiomyopathy, and Pancoast Tumor (JARED) Adenocarcinoma with Metastases who presented to [facility] ER today complaining of worsening left-sided chest pain radiating to his posterior left shoulder, down the inside of his left arm, into his left hand and fingertips. He has had the pain for weeks and was admitted at [facility] where he was treated with opiates and steroids. He has had 4 radiation treatments so far and states that beginning yesterday afternoon that he has developed worsening pain and difficulty swallowing. He describes the pain as a sharp left sided chest pain, rating it 9/10 in severity. The pain is worse when he lies down on his back or left shoulder. He does get some relief with the morphine he takes at home, but neither Oxycodone or Oxycontin relieves his pain. He denies any associated with shortness of breath but he does complain of painful swallowing. He has only been able to drink about 1/2 cup of water since yesterday. He ate an apple this morning but it took him 30 minutes to eat it. He denies any vomiting, fevers, focal abdominal pain, diarrhea, or any urinary symptoms. He denies any cough, sputum production, or hemoptysis. Patient has been having left arm weakness for the last 1 to 2 months. He is also been having sweats and cold intolerance predominantly unilaterally. He denies any weight loss. HISTORICAL BACKGROUND: Patient presented to [facility] ER on 06/11/2020 because of weakness of his left arm, radicular pain, and numbness. He underwent a CT chest which demonstrated Pancoast tumor, left lower paratracheal hilar conglomerate lymphadenopathy was noted. Hypodense metastatic hepatic lesions were found as well. He subsequently underwent a CT-guided biopsy at [facility] on 06/18/2020 which revealed poorly differentiated pulmonary adenocarcinoma. Orthopedic surgery was consulted in [place] due to the Pancoast tumor compressing on C8 and T1 nerve roots. He underwent an MRI of the spine at that location. Orthopedic surgery noted that "he does have some weakness diffusely in the left upper extremity, but this does not match the findings of the MRI as there is no cord compression of the spinal cord or the nerve roots. He has weakness may be related to pain or possible compression distal to the nerve roots.". CT abdomen on 06/13/2020 revealed at least 3 hepatic hypodensities concerning for possible malignancy. CT head on 06/13/2020 demonstrated no acute intracranial findings. Patient was discharged home on 06/18/2020. He was also discharged home with pain medications including 30 mg twice daily OxyContin, 10 mg every 4 as needed oxycodone. He also had an Echocardiogram recently demonstrating decreased LV systolic function with an LVEF of 40% to 45%. Patient was evaluated by interventional pulmonology who recommended evaluation by thoracic surgery given his Pancoast tumor. Patient recently began Radiation Treatments with Dr. Manning. His Oncologist is Dr. Su. Patient has a history of [id number] smoking history, and he continues to smoke. Admission Exam Per Admitting Provider Physical Exam: GENERAL: Patient winces with movement. HEENT: Head is atraumatic, normocephalic. EOM's intact. Facies symmetric. No perioral cyanosis. NECK: No JVD. JVP is at the level of the clavicle sitting upright. Carotid upstrokes are + 2 bilaterally. CHEST/LUNGS: Diminished breath sounds throughout, no wheezes, rales, or crackles. CVS: S1 and S2 are regular without obvious murmurs, gallops, or rubs. PMI is nondisplaced. No lifts, heaves, or thrills. No abdominal aortic or renal bruits. ABDOMINAL EXAM: Bowel sounds are present. No masses, organomegaly, or tenderness. EXTREMITIES: No clubbing or cyanosis. No edema. Intact posterior tibial and radial pulses bilaterally. NEUROLOGIC EXAM: Patient is awake, alert, and oriented. He is cooperative. Answers questions appropriately. Speech is clear. Muscular atrophy of the left arm and hand. MUSCULOSKELETAL EXAM: Tender to palpation along the left posterior shoulder, chest mildly tender to palpation. EKG 07/12/2020: -- NSR at 86 bpm. -- Normal tracing. -- No change compared to 06/12/2020 tracing. Principal Diagnosis Pancoast tumor of left lung Discharge Exam Temp Pulse Resp BP Pulse Ox 36.5 C 77 16 127/82 93 07/14/20 11:24 07/14/20 11:24 07/14/20 11:24 07/14/20 11:24 07/14/20 11:24 Patient is afebrile. Vital signs stable. Constitutional average body habitus; no acute distress ENMT Ears: no hearing impairment Neck trachea midline, no thyromegaly Respiratory Auscultation: + rhonchi (LLL) Right lung clear to auscultation Cardiovascular RRR, no murmur, no edema Gastrointestinal (Abdomen) Inspection/Auscultation: normal bowel sounds Percussion/Palpation: abdomen soft; abdomen nontender Psychiatric A+Ox3, euthymic affect Discharge Data Allergies Allergy/AdvReac Type Severity Reaction Status Date / Time No Known Allergies Allergy Verified 07/12/20 10:28 Consultations 07/12/20 12:12 ED Decision to Admit Stat 07/12/20 15:26 Consult Oncology Routine Consult Pain Management Routine Consult Radiation Oncology Routine 07/12/20 17:09 Consult Palliative Care Routine Ordered Studies 07/12/20 10:53 CT angio chest PE protocol Stat Hospital Course (1) Pancoast tumor of left lun60 y/o male, chronic smoker who was recently diagnosed with JARED Pancoast tumor, also possibly metastatic to liver - clinical stage IVB, [id number] - currently undergoing palliative radiation for Pancoast syndrome with Dr. Manning - awaiting PET/CT, and molecular testing for EGFR, ALK, ROS1, PD-L1 to guide therapeutics - systemic therapy will be scheduled as an outpatient - followup with Dr. Gerard Su and Dr. Manning as an outpatient -IV Decadron 10mg daily- will convert to tapering PO dose on discharge. Rx called to pharmacy upon discharge to clarify dosing. (2) Cancer associated pain: Patient reports pain is improved today. He is no longer having pain every 45 minutes, but rather every 6 hours. He is doing well with extended release morphine twice daily, immediate release 15 mg every 6 hours as needed, and IV Dilaudid as needed. Patient is requesting discharge home today as his pain is improved. He does understand he will not have IV Dilaudid accessible at home. He feels his pain is controlled well enough with the extended release and immediate release morphine to go home. Patient plans to follow-up with pain management as an outpatient. D/C home on gabapentin 100 mg 3 times daily, 30 mg ER morphine twice daily, and 50 mg IR morphine p.o. every 6 hours as needed. Spoke with pharmacy, patient should have at least 32 pills of Morphine ER d/t recent Rx. This prescription was cancelled, and patient will use what he currently has at home. (3) Tobacco abuse: Smoking cessation encouraged. Rx for nicotine patch and gum transmitted upon discharge. (4) GERD (gastroesophageal reflux disease): Continue PPI (5) Constipation: Resolved per patient. He reports he is having daily BMs. (6) Glaucoma: Continue latanoprost. (7) HTN (hypertension): Controlled at 127/82. Continue lisinopril 30 mg daily. (8) Thrush: Continue Nystatin suspension on discharge. Disposition: Discharge home today. Total Time Total Time Spent Total Time Spent (In Minutes): 60 minutes Total Time Includes: Examination of the Patient, Discharge Planning, Medication Reconciliation, Communication With Other Providers and Other Discharge Plan Discharge Items Patient Disposition: Home - Self-Care Reason For Visit: INTRACTABLE PAIN RELATED TO CANCER Discharge Diagnosis: Pancoast Tumor left lung Activity: Resume your previous activity Lifting: Gradually increase as tolerated Bathing: No limitations Sexual Activity: When tolerated Exercise/Sports: Gradually increase as tolerated Driving/Machine Use: No driving while taking narcotics Weightbearing: Full weightbearing Non-emergency contact: Primary Care Provider, Oncologist and Pain Management Call non-emergency contact if: you have any medication questions, your symptoms worsen, your pain is not controlled, your pain is worsening and you have a fever Follow-up/Referrals: Gerard Barnes [Primary Care Provider] - Diet: Regular Addtl Attending Provider Instructions: Follow-up with pain management, oncology, and radiation oncology as scheduled. Pending Studies at Discharge: No Stand-Alone Forms: My [facility], Opioid Pain Management, Smoking Cessation Medications and DC Order Prescriptions: New nystatin 100,000 unit/mL Suspension 10 ml PO QID 7 Days Qty: 280 RF: 0 nicotine (polacrilex) [Nicorette] 2 mg Gum 4 mg MT PRN PRN (Reason: nicotine cravings) 14 Days Qty: 30 RF: 0 nicotine [Nicoderm CQ] 21 mg/24 hr Patch 24 Hour 21 mg transdermal QAM 14 Days Qty: 14 RF: 0 morphine 15 mg Tablet Extended Release 30 mg PO BID 7 Days Qty: 14 RF: 0 gabapentin 100 mg Capsule 100 mg PO TID 30 Days Qty: 90 RF: 0 morphine 15 mg Tablet 15 mg PO Q6 PRN (Reason: pain) 7 Days Qty: 28 RF: 0 Continued lorazepam [Ativan] 0.5 mg tablet 0.5 mg PO DAILY Qty: 1 RF: 0 latanoprost 0.005 % drops 1 drp OPB HS RF: 0 omeprazole 20 mg capsule,delayed release(DR/EC) 20 mg PO QAM RF: 0 acetaminophen [Tylenol 8 Hour] 650 mg Tablet Extended Release 650 mg PO DIRECTED PRN (Reason: Pain) RF: 0 lisinopril 30 mg Tablet 30 mg PO QAM RF: 0 cyclobenzaprine 10 mg tablet 10 mg PO UD PRN (Reason: Muscle Spasm) RF: 0 Discontinued oxycodone 10 mg tablet 10 mg PO Q4H PRN (Reason: Pain) RF: 0 morphine 30 mg capsule, ER multiphase 24 hr 30 mg PO Q12H PRN (Reason: Pain) RF: 0 Discharge Orders: Discharge Order (Routine); Ordered 07/14/20 Ordered By: Marisa Ferrari Admission Data Admit Date/Time: 07/12/20 13:57 Attending Provider: Dale Herrera Admit Provider: Giovani Chen Primary Care Provider: Gerard Barnes Other Providers: Nathalia Spencer ; Ani Rodrigues ; Gerard Su V. ; Rickey Manning ; Dale Herrera Other Interventions: Discharge Summary Assessment (RN) Last Done: 07/14/20 11:24 Supervising Physician Co-Signing Physician Notes I supervised COLBY Quinonez on this admission. I interviewed and examined the patient independently of her. The plan is as written in her note except for any following changes/exceptions: None Patient feeling well today. Doing well on oral pain control. Eager to go home. Coding Level of Care Code D/C Day Management >30 mins Diagnoses Pancoast tumor of left lung C34.12 Cancer associated pain G89.3 Tobacco abuse Z72.0 GERD (gastroesophageal reflux disease) K21.9 Constipation K59.00 Glaucoma H40.9 HTN (hypertension) I10 Thrush B37.0
--- NOTE | 2020-07-15 07:57 | Pain Management Consultation ---
Date of Consultation July 15, 2020 Assessment & Plan (1) Pancoast syndrome: pt d/c'd prior to being seen. Laterality: left Qualified Code(s): C34.12 - Malignant neoplasm of upper lobe, left bronchus or lung History of Present Illness Attending Physician: Dale Herrera MD Allergies Allergy/AdvReac Type Severity Reaction Status Date / Time No Known Allergies Allergy Verified 07/12/20 10:28 Home Medications Medication Instructions Recorded Confirmed Type latanoprost 1 drp OPB HS 04/25/19 07/12/20 History omeprazole 20 mg PO QAM 04/25/19 07/12/20 History lisinopril 30 mg PO QAM 01/10/20 07/12/20 History acetaminophen [Tylenol 8 Hour] 650 mg PO DIRECTED PRN 01/14/20 07/12/20 History cyclobenzaprine 10 mg PO UD PRN 06/11/20 07/12/20 History lorazepam 0.5 mg tablet 0.5 mg PO DAILY #1 tab 07/03/20 07/12/20 Rx gabapentin 100 mg PO TID 30 Days #90 cap 07/14/20 Rx morphine 15 mg PO Q6 PRN 7 Days #28 tab 07/14/20 Rx morphine 30 mg PO BID 7 Days #14 tab 07/14/20 Rx nicotine (polacrilex) [Nicorette] 4 mg MT PRN PRN 14 Days #30 ea 07/14/20 Rx nicotine [Nicoderm CQ] 21 mg TRANSDERMAL QAM 14 Days #14 07/14/20 Rx ea nystatin 10 ml PO QID 7 Days #280 ml 07/14/20 Rx Patient History Medical History Anxiety Cervical disc disease prescribed prednisone taper x6 days- to be completed approximately 8/2 Consciousness alteration COPD (chronic obstructive pulmonary disease) stable GERD (gastroesophageal reflux disease) controlled Glaucoma History of migraine HTN (hypertension) Malignant neoplasm of upper lobe, left bronchus or lung Pancoast tumor Tobacco abuse Weakness of left upper extremity Surgical History History of eyelid surgery History of surgery mult benign tumors removed from neck History of surgery benign growth removed from RLE History of tooth extraction History of vocal cord polypectomy S/P cervical spinal fusion Family History Father Cancer Myocardial infarction Grandmother (Maternal) Cancer Other Asthma Diabetes Heart disease Social History Smoking Status: Heavy tobacco smoker Tobacco Type: Cigarettes Age Started Using Tobacco: 14; packs per day: 2; Cigarettes Per Day: 40 (tobacco use x 45+ years); Second Hand Exposure: No; Do You Dip or Chew Tobacco: No; Hx Alcohol Use: No Hx Substance Use: No Preferred Language: Japanese Communication Ability: Effective Visual Impairment: No Limitations Metal Molder Required: No Beliefs That Will Affect Care: None marital status: Current Living Situation: Spouse and Family Current Living Situation Comment: Lives w/spouse and 4 grandchildren current occupation: currently on short term disability from [employer] in [place] How many Children do You have: 2 Other Information That Helps Us Care for You: No other: currently raising adopted 4 grandchildren Feels Safe at Home: Yes Safety Concerns: Feels Safe At This Time Childhood Exposure to Second-Hand Smoke: Yes caffeine: Yes (coffee 3-4 pots/day) during the past year weight has: remained stable Dental Care, Regularly: No Physical Activity Frequency: Does not Exercise Physical Activity Frequency Comment: limited due to pain and limited rom of lue Seatbelt Use: other Sunscreen Use: No Assistive Devices: None
== END 2020-07-14 11:05 | disposition home or self-care (01) | DRG 181 ==
LOC: ED 08:57 → SUATTDRO 13:57 → 3W 13:57

== ENCOUNTER 2020-08-23 14:21 | Observation (INO) ==
[2020-08-23] MEDS ORDERED: ALBUT/IPRATROP 3MG/0.5MG NEB 3 ML VIAL NEB STA (14:32)
[2020-08-23] MEDS ORDERED: HYDROmorphone INJ 0.5 MG/0.5 ML SYR IV STA (14:32)
[2020-08-23] MEDS ORDERED: DEXAMETHASONE SOD INJ 10 MG/ML VIAL IV ONE (14:32)
[2020-08-23] MEDS ORDERED: SODIUM CHLORIDE 0.9% 500 ML IV SCH (14:45)
--- NOTE | 2020-08-23 14:45 | Emergency Department Note ---
Impression & Plan Breathlessness, Chest pain, Acute pulmonary embolism ED Provider Note Provider: Parrish Salinas MD DATE OF SERVICE: 08/23/2020 CHIEF COMPLAINT: Shortness of breath, leg swelling, shaking, cough HISTORY OF PRESENT ILLNESS: Patient is a 60-year-old gentleman unfortunate past medical history of lung cancer with metastatic disease to the spine and ribs, DVT currently on Lovenox, hypertension, and a history of smoking presenting today complaining since about 2 AM overnight when he woke up worsening through till arrival he has had shortness of breath with some involuntary shakes/chills. Has noticed some increased leg swelling left greater than right. States compliance with home Lovenox shots. Slight cough but no fevers reported. States he has some diffuse pain in his back and chest that fairly chronic. Is on chronic long-term fentanyl patch which he replaced this morning. Patient did receive chemotherapy 4 days ago. Previous radiation. Reports he was around his brother about a week ago who had some cold symptoms but denies known Covid exposure. Maybe a bit weak yesterday but significantly worse today with more tachypnea and shortness of breath. Not on home oxygen. No trauma reported. REVIEW OF SYSTEMS: A total of 10 review of systems was obtained and negative except as stated above in the HPI. PAST MEDICAL HISTORY: As noted above MEDICATIONS: Reviewed home medication list SOCIAL HISTORY: Smoker, lives at home PHYSICAL EXAM: GENERAL: alert and oriented seated on the stretcher assisted there from a wheelchair appears fatigued, tachypneic, with some tremor Head: normocephalic and atraumatic EYES: No injection, discharge or icterus. NECK: Trachea midline. ENT: Mucous membranes pink and moist. LUNGS: Airway patent. No retractions. Breath sounds with expiratory wheeze throughout. HEART: Regular tachycardic rate and rhythm. No chest wall tenderness. No port appreciated in the chest wall. Poor peripheral circulation. ABDOMEN: Soft and non-tender, without guarding or rebound. SKIN: Acyanotic, warm, dry,. EXTREMITIES: Without swelling, tenderness or deformity with 1+ right lower extremity and 2+ left lower extremity swelling. There is some slight tenderness of the left calf. NEUROLOGICAL: No aphasia. No facial droop or slurred speech. Moving all extremities but with some chills/tremor appreciated involuntarily in all extremities of varying intensity. EK bpm sinus tachycardia. No PVC or PAC. No acute ST segment elevation or depression noted with some slight respiratory artifact. QTc 445. CONTINUOUS CARDIAC MONITORING: was ordered and showed a heart rate of 135 bpm in sinus tachycardia Patient's laboratory studies and imaging reviewed. Differential includes Infection, dehydration, metabolic abnormality, hypo/hyperglycemia, electrolyte disturbance, anemia, hypoxia, cardiac sources, intracerebral event, toxicologic, neurologic, as well as other pathologies. IMPRESSION/MEDICAL DECISION MAKING: Patient is complaining of worsening shortness of breath leg swelling with some shaking chills and cough today. Covid test was sent. Not hypoxic here initially on room air. Significantly tachycardic but appears to be a sinus tachycardia. Does have some lower extremity swelling left greater than right with known DVT in the left. Currently anticoagulated on Lovenox significantly lower risk for PE given this. Given some IV fluids and lactate, cultures, VBG, additional blood work was ordered. Given some additional Dilaudid for pain control. Given some steroid as well as DuoNeb to help with respiratory symptoms given history of smoking and some wheezing appreciated on exam. Afebrile here no fever reported however do have some concerns given his oncological status for possible infection. EKG again consistent with a sinus tachycardia. Patient did desaturate just prior to receiving some Dilaudid for pain now on several liters of oxygen. No significant leukocytosis or anemia on labs. INR is within normal limits. VBG shows no significant acidosis or hypercarbia. Chest x-ray per radiology report without significant findings for pneumonia or pneumothorax. Slight hyponatremia of 132 but no significant severe other electrolyte abnormality. Renal function appears stable. AST and ALT somewhat elevated today. Rapid Covid test was negative. Given her persistent tachycardia and shortness of breath and hypoxia even though his anticoagulant proceed with a CT scan of the chest. CT scan shows evidence of acute PEs in the right upper, lower, and left lower lobes. Patient reports has been compliant with his Lovenox last 8 AM this morning. Appears unfortunately given the oncologic process with failed anticoagulation do question of possible transfer some DVT from the left lower leg broke off and came to the lungs causing these given his anticoagulation status. And have been started on heparin drip at this point discussed with the hospitalist for further care here as an inpatient given the failure, tachycardia, and hypoxia. Patient and family updated at bedside in agreement the plan. Patient with evidence of acute RV strain on the CT and negative troponin and low BNP do not feel at this time he requires TPA given the associated risks. DIAGNOSIS: Shortness of breath, hypoxia, back pain, acute pulmonary embolism DISPOSITION: Hospitalist will evaluate Patient was agreeable with this plan. Critical Care I have personally spent 38 minutes of critical care time in the direct management of this patient. This includes bedside care, interpretation of diagnostic studies, and testing, discussion with consultants, patient, and family members, and other required patient management activities. These 38 minutes is in excess of all separately billable procedures. Past Med/Surg History Medical History (Updated 08/23/20 @ 18:08 by Parrish Salinas M.D.) Anxiety Cervical disc disease prescribed prednisone taper x6 days- to be completed approximately 8/ Chronic anticoagulation Consciousness alteration COPD (chronic obstructive pulmonary disease) stable DVT (deep venous thrombosis) GERD (gastroesophageal reflux disease) controlled Glaucoma History of migraine HTN (hypertension) Malignant neoplasm of upper lobe, left bronchus or lung Pancoast tumor Tobacco abuse Weakness of left upper extremity Surgical History History of eyelid surgery History of surgery mult benign tumors removed from neck History of surgery benign growth removed from RLE History of tooth extraction History of vocal cord polypectomy S/P cervical spinal fusion Family History Father Cancer Myocardial infarction Grandmother (Maternal) Cancer Other Asthma Diabetes Heart disease Social History Smoking Status: Current every day smoker Tobacco Type: Cigarettes Age Started Using Tobacco: 14; packs per day: 2; Cigarettes Per Day: 40 (tobacco use x 45+ years); Second Hand Exposure: No; Hx Alcohol Use: No Hx Substance Use: No Preferred Language: [place] Islander Communication Ability: Effective Visual Impairment: No Limitations Manager Mba Required: No Beliefs That Will Affect Care: None marital status: Current Living Situation: Spouse and Family Current Living Situation Comment: Lives w/spouse and 4 grandchildren current occupation: currently on short term disability from [employer] in [place] How many Children do You have: 2 other: currently raising adopted 4 grandchildren Feels Safe at Home: Yes Childhood Exposure to Second-Hand Smoke: Yes caffeine: Yes (coffee 3-4 pots/day) during the past year weight has: remained stable Dental Care, Regularly: No Physical Activity Frequency: Does not Exercise Physical Activity Frequency Comment: limited due to pain and limited rom of lue Seatbelt Use: other Sunscreen Use: No Assistive Devices: None Allergies Allergies Allergy/AdvReac Type Severity Reaction Status Date / Time No Known Allergies Allergy Verified 08/23/20 15:05 Home Meds Home Medications Medication Instructions Recorded Confirmed latanoprost 1 drp OPB HS 04/25/19 08/23/20 omeprazole 20 mg PO QAM 04/25/19 08/23/20 acetaminophen [Tylenol 8 Hour] 650 mg PO DIRECTED PRN 01/14/20 08/23/20 cyclobenzaprine 10 mg PO HS 06/11/20 08/23/20 gabapentin 300 mg capsule 300 mg PO BID cap 08/05/20 08/23/20 dexamethasone 4 mg PO Q8 PRN 08/07/20 08/23/20 enoxaparin 70 mg SUBCUT Q12H 08/23/20 08/23/20 Previous Rx's Medication Instructions Recorded fentanyl 50 mcg/hr transdermal 1 patch TRANSDERMAL Q72H #2 ea 08/13/20 patch morphine 15 mg immediate release 15 mg PO Q6H PRN #45 tab 08/15/20 tablet Results & Data (ED) Vital Signs Vital Signs - 24 hr 08/23/20 14:24 08/23/20 14:29 08/23/20 14:33 Temperature 36.9 C Temperature Source Temporal Artery Scan Pulse Rate 152 H Pulse Rate [Right Finger] Pulse Rate from SpO2 Sensor Respiratory Rate 24 Respiratory Effort / Characteristics Short of Breath Tripoding Non-Labored Spontaneous Respiratory Depth Normal Respiratory Pattern Regular Blood Pressure 102/39 L Blood Pressure Mean 60 Blood Pressure Position Sitting Pulse Oximetry 94 94 96 Oxygen Delivery Method Room Air Room Air Room Air Oxygen Flow Rate Sepsis Recent Fever Within 48 Hours No Sepsis New/Unexplained Change in Mental Status No Sepsis Action Taken by Nursing Physician Notified Oxygen Flow Rate - Titration Pulse Oximetry Post Tiitration 08/23/20 15:11 08/23/20 15:14 08/23/20 15:28 Temperature Temperature Source Pulse Rate 142 H Pulse Rate [Right Finger] 134 H Pulse Rate from SpO2 Sensor 142 H Respiratory Rate 20 24 Respiratory Effort / Characteristics Non-Labored Spontaneous Respiratory Depth Respiratory Pattern Blood Pressure 129/99 Blood Pressure Mean 109 Blood Pressure Position Pulse Oximetry 97 87 L 96 Oxygen Delivery Method Nasal Cannula Nasal Cannula Nasal Cannula Oxygen Flow Rate 4 3 4 Sepsis Recent Fever Within 48 Hours Sepsis New/Unexplained Change in Mental Status Sepsis Action Taken by Nursing Oxygen Flow Rate - Titration 4 Pulse Oximetry Post Tiitration 96 08/23/20 17:10 Temperature Temperature Source Pulse Rate 122 H Pulse Rate [Right Finger] Pulse Rate from SpO2 Sensor 121 H Respiratory Rate 19 Respiratory Effort / Characteristics Respiratory Depth Respiratory Pattern Blood Pressure Blood Pressure Mean Blood Pressure Position Pulse Oximetry 93 Oxygen Delivery Method Nasal Cannula Oxygen Flow Rate 4 Sepsis Recent Fever Within 48 Hours Sepsis New/Unexplained Change in Mental Status Sepsis Action Taken by Nursing Oxygen Flow Rate - Titration Pulse Oximetry Post Tiitration Laboratory Data Result diagrams: 08/23/20 14:50 08/23/20 14:50 Lab Results 08/23/20 08/23/20 08/23/20 Range/Units 14:50 14:50 14:50 WBC (4.8-10.8) K/uL RBC (4.7-6.1) M/uL Hgb (14.0-18.0) g/dL Hct (42-52) % MCV (80-100) fL MCH (25-34) pg MCHC (32-36) g/dL RDW Std Deviation (36.4-46.3) fL RDW Coeff of Ryan (11.5-14.5) % Plt Count (130-400) K/uL MPV (7.4-10.4) fL Immature Gran % (Auto) % Neut % (Auto) % Lymph % (Auto) % Ada % (Auto) % Eos % (Auto) % Baso % (Auto) % Neut # (Auto) (1.4-6.5) K/uL Lymph # (Auto) (1.2-3.4) K/uL Ada # (Auto) (0.11-0.59) K/uL Eos # (Auto) (0-0.5) K/uL Baso # (Auto) (0-0.2) K/uL Immature Gran # (Auto) (0.00-0.02) K/uL PT 9.7 (9.0-12.0) Seconds INR 1.0 (0.9-1.1) APTT (21.0-31.0) Seconds PTT Ratio VBG pH (7.36-7.41) VBG pCO2 (38-50) mmHg VBG pO2 mmHg VBG HCO3 mmol/L VBG O2 Saturation % VBG Base Excess mEq/L Barometric Pressure mm/Hg Sodium 132 L (136-145) mmol/L Potassium 4.2 (3.5-5.1) mmol/L Chloride 99 (98-107) mmol/L Carbon Dioxide 25 (21-32) mmol/L Anion Gap 8.0 (3-11) BUN 12 (7-18) mg/dl Creatinine 0.59 L (0.6-1.4) mg/dl Est Cr Clr Drug Dosing 135.8 ml/min Est GFR ( Amer) 126.6 Est GFR (Non-Af Amer) 109.3 BUN/Creatinine Ratio 20.8 H (10-20) Glucose 109 H (70-99) mg/dl Lactate 1.6 (0.4-2.0) mmol/L Calcium 9.0 (8.5-10.1) mg/dl Magnesium 1.8 (1.8-2.4) mg/dl Total Bilirubin 0.6 (0.2-1) mg/dl AST 48 H (15-37) U/L ALT 116 H (12-78) U/L Alkaline Phosphatase 88 (45-117) U/L Troponin I < 0.015 (0-0.045) ng/ml NT-Pro-B Natriuret Pep 106 (0-900) pg/ml Total Protein 6.6 (6.4-8.2) gm/dl Albumin 2.8 L (3.4-5.0) gm/dl Globulin 3.8 (2.5-4.0) gm/dl Albumin/Globulin Ratio 0.7 L (0.9-2) Lipase (73-393) U/L Procalcitonin (0-0.5) ng/ml TSH 0.773 (0.300-4.500) uIu/ml COVID-19 Eval Order SARS-CoV-2, RNA, NAAT (NEGATIVE) 08/23/20 08/23/20 08/23/20 Range/Units 14:50 14:50 14:50 WBC 6.31 (4.8-10.8) K/uL RBC 3.52 L (4.7-6.1) M/uL Hgb 12.3 L (14.0-18.0) g/dL Hct 35.4 L (42-52) % MCV 100.6 H (80-100) fL MCH 34.9 H (25-34) pg MCHC 34.7 (32-36) g/dL RDW Std Deviation 54.0 H (36.4-46.3) fL RDW Coeff of Ryan 14.8 H (11.5-14.5) % Plt Count 238 (130-400) K/uL MPV 9.4 (7.4-10.4) fL Immature Gran % (Auto) 0.2 % Neut % (Auto) 93.9 % Lymph % (Auto) 5.4 % Ada % (Auto) 0.0 % Eos % (Auto) 0.5 % Baso % (Auto) 0.0 % Neut # (Auto) 5.93 (1.4-6.5) K/uL Lymph # (Auto) 0.34 L (1.2-3.4) K/uL Ada # (Auto) 0.00 L (0.11-0.59) K/uL Eos # (Auto) 0.03 (0-0.5) K/uL Baso # (Auto) 0.00 (0-0.2) K/uL Immature Gran # (Auto) 0.01 (0.00-0.02) K/uL PT (9.0-12.0) Seconds INR (0.9-1.1) APTT (21.0-31.0) Seconds PTT Ratio VBG pH 7.44 H (7.36-7.41) VBG pCO2 41 (38-50) mmHg VBG pO2 35 mmHg VBG HCO3 27 mmol/L VBG O2 Saturation 69.3 % VBG Base Excess 2.3 mEq/L Barometric Pressure 731.7 mm/Hg Sodium (136-145) mmol/L Potassium (3.5-5.1) mmol/L Chloride (98-107) mmol/L Carbon Dioxide (21-32) mmol/L Anion Gap (3-11) BUN (7-18) mg/dl Creatinine (0.6-1.4) mg/dl Est Cr Clr Drug Dosing ml/min Est GFR ( Amer) Est GFR (Non-Af Amer) BUN/Creatinine Ratio (10-20) Glucose (70-99) mg/dl Lactate (0.4-2.0) mmol/L Calcium (8.5-10.1) mg/dl Magnesium (1.8-2.4) mg/dl Total Bilirubin (0.2-1) mg/dl AST (15-37) U/L ALT (12-78) U/L Alkaline Phosphatase (45-117) U/L Troponin I (0-0.045) ng/ml NT-Pro-B Natriuret Pep (0-900) pg/ml Total Protein (6.4-8.2) gm/dl Albumin (3.4-5.0) gm/dl Globulin (2.5-4.0) gm/dl Albumin/Globulin Ratio (0.9-2) Lipase 139 (73-393) U/L Procalcitonin (0-0.5) ng/ml TSH (0.300-4.500) uIu/ml COVID-19 Eval Order SARS-CoV-2, RNA, NAAT (NEGATIVE) 08/23/20 08/23/20 08/23/20 Range/Units 14:50 14:57 15:06 WBC (4.8-10.8) K/uL RBC (4.7-6.1) M/uL Hgb (14.0-18.0) g/dL Hct (42-52) % MCV (80-100) fL MCH (25-34) pg MCHC (32-36) g/dL RDW Std Deviation (36.4-46.3) fL RDW Coeff of Ryan (11.5-14.5) % Plt Count (130-400) K/uL MPV (7.4-10.4) fL Immature Gran % (Auto) % Neut % (Auto) % Lymph % (Auto) % Ada % (Auto) % Eos % (Auto) % Baso % (Auto) % Neut # (Auto) (1.4-6.5) K/uL Lymph # (Auto) (1.2-3.4) K/uL Ada # (Auto) (0.11-0.59) K/uL Eos # (Auto) (0-0.5) K/uL Baso # (Auto) (0-0.2) K/uL Immature Gran # (Auto) (0.00-0.02) K/uL PT (9.0-12.0) Seconds INR (0.9-1.1) APTT 26.1 (21.0-31.0) Seconds PTT Ratio 1.0 VBG pH (7.36-7.41) VBG pCO2 (38-50) mmHg VBG pO2 mmHg VBG HCO3 mmol/L VBG O2 Saturation % VBG Base Excess mEq/L Barometric Pressure mm/Hg Sodium (136-145) mmol/L Potassium (3.5-5.1) mmol/L Chloride (98-107) mmol/L Carbon Dioxide (21-32) mmol/L Anion Gap (3-11) BUN (7-18) mg/dl Creatinine (0.6-1.4) mg/dl Est Cr Clr Drug Dosing ml/min Est GFR ( Amer) Est GFR (Non-Af Amer) BUN/Creatinine Ratio (10-20) Glucose (70-99) mg/dl Lactate (0.4-2.0) mmol/L Calcium (8.5-10.1) mg/dl Magnesium (1.8-2.4) mg/dl Total Bilirubin (0.2-1) mg/dl AST (15-37) U/L ALT (12-78) U/L Alkaline Phosphatase (45-117) U/L Troponin I (0-0.045) ng/ml NT-Pro-B Natriuret Pep (0-900) pg/ml Total Protein (6.4-8.2) gm/dl Albumin (3.4-5.0) gm/dl Globulin (2.5-4.0) gm/dl Albumin/Globulin Ratio (0.9-2) Lipase (73-393) U/L Procalcitonin 0.16 (0-0.5) ng/ml TSH (0.300-4.500) uIu/ml COVID-19 Eval [facility] SARS-CoV-2, RNA, NAAT (NEGATIVE) 08/23/20 Range/Units 15:06 WBC (4.8-10.8) K/uL RBC (4.7-6.1) M/uL Hgb (14.0-18.0) g/dL Hct (42-52) % MCV (80-100) fL MCH (25-34) pg MCHC (32-36) g/dL RDW Std Deviation (36.4-46.3) fL RDW Coeff of Ryan (11.5-14.5) % Plt Count (130-400) K/uL MPV (7.4-10.4) fL Immature Gran % (Auto) % Neut % (Auto) % Lymph % (Auto) % Ada % (Auto) % Eos % (Auto) % Baso % (Auto) % Neut # (Auto) (1.4-6.5) K/uL Lymph # (Auto) (1.2-3.4) K/uL Ada # (Auto) (0.11-0.59) K/uL Eos # (Auto) (0-0.5) K/uL Baso # (Auto) (0-0.2) K/uL Immature Gran # (Auto) (0.00-0.02) K/uL PT (9.0-12.0) Seconds INR (0.9-1.1) APTT (21.0-31.0) Seconds PTT Ratio VBG pH (7.36-7.41) VBG pCO2 (38-50) mmHg VBG pO2 mmHg VBG HCO3 mmol/L VBG O2 Saturation % VBG Base Excess mEq/L Barometric Pressure mm/Hg Sodium (136-145) mmol/L Potassium (3.5-5.1) mmol/L Chloride (98-107) mmol/L Carbon Dioxide (21-32) mmol/L Anion Gap (3-11) BUN (7-18) mg/dl Creatinine (0.6-1.4) mg/dl Est Cr Clr Drug Dosing ml/min Est GFR ( Amer) Est GFR (Non-Af Amer) BUN/Creatinine Ratio (10-20) Glucose (70-99) mg/dl Lactate (0.4-2.0) mmol/L Calcium (8.5-10.1) mg/dl Magnesium (1.8-2.4) mg/dl Total Bilirubin (0.2-1) mg/dl AST (15-37) U/L ALT (12-78) U/L Alkaline Phosphatase (45-117) U/L Troponin I (0-0.045) ng/ml NT-Pro-B Natriuret Pep (0-900) pg/ml Total Protein (6.4-8.2) gm/dl Albumin (3.4-5.0) gm/dl Globulin (2.5-4.0) gm/dl Albumin/Globulin Ratio (0.9-2) Lipase (73-393) U/L Procalcitonin (0-0.5) ng/ml TSH (0.300-4.500) uIu/ml COVID-19 Eval Order SARS-CoV-2, RNA, NAAT NEGATIVE (NEGATIVE) Administered Medications Heparin Sodium/Dextrose (Heparin Sodium/Dextrose) 25,000 units in 500 mls @ 27 mls/hr IV .[id number] [facility]; Protocol Stop: 09/22/20 16:29 Last Admin: 08/23/20 17:05 Dose: 1,350 units/hr, 27 mls/hr Documented by: [id number] Cosigned by: [id number] Discontinued Medications Albuterol (Albut/Ipratrop 3mg/0.5mg Neb 3 Ml Vial) 3 ml NEB NOW STA Stop: 08/23/20 14:33 Last Admin: 08/23/20 15:11 Dose: 3 ml Documented by: [id number] Dexamethasone (Dexamethasone Sod Inj 10 Mg/Ml Vial) 6 mg IV NOW ONE Stop: 08/23/20 14:33 Last Admin: 08/23/20 15:02 Dose: 6 mg Documented by: [id number] Heparin Sodium (Porcine) (Heparin Bolus Ed Use Only) 6,000 units IV NOW STA Stop: 08/23/20 16:41 Last Admin: 08/23/20 17:05 Dose: 6,000 units Documented by: [id number] Cosigned by: [id number] Hydromorphone HCl (Hydromorphone Inj 0.5 Mg/0.5 Ml Syr) 0.5 mg IV NOW STA Stop: 08/23/20 14:33 Last Admin: 08/23/20 15:02 Dose: 0.5 mg Documented by: [id number] Sodium Chloride (Nss) 500 mls @ 999 mls/hr IV .Q31M TRAMAINE Stop: 08/23/20 15:15 Last Infusion: 08/23/20 15:43 Dose: 0 mls/hr Documented by: [id number] Admin: 08/23/20 15:02 Dose: 999 mls/hr Documented by: [id number] Ioversol (Optiray 320 125ml) 120 ml IV ONCE ONE Stop: 08/23/20 16:06 Last Admin: 08/23/20 16:05 Dose: 120 ml Documented by: [id number] Discharge Plan Visit Data Chief Complaint: Shortness of Breath/Dyspnea Stated Complaint: SOB, SHAKING,SWELLING, COUGH ED Provider: Parrish Salinas Discharge Problem: Breathlessness, Chest pain, Acute pulmonary embolism Patient Disposition: Admitted As Inpatient Discharge Instructions Interventions: ED Discharge Assessment Last Done: 08/23/20 17:42 Forms Stand Alone Forms: [employer] Prescriptions Prescriptions: No Action gabapentin 300 mg capsule 300 mg PO BID RF: 0 fentanyl 50 mcg/hr patch 72 hour 1 patch transdermal Q72H Qty: 2 RF: 0 morphine 15 mg tablet 15 mg PO Q6H PRN (Reason: pain) Qty: 45 RF: 0 latanoprost 0.005 % drops 1 drp OPB HS RF: 0 omeprazole 20 mg capsule,delayed release(DR/EC) 20 mg PO QAM RF: 0 acetaminophen [Tylenol 8 Hour] 650 mg Tablet Extended Release 650 mg PO DIRECTED PRN (Reason: Pain) RF: 0 dexamethasone 4 mg Tablet 4 mg PO Q8 PRN (Reason: NEEDED) RF: 0 cyclobenzaprine 10 mg tablet 10 mg PO HS RF: 0 enoxaparin 80 mg/0.8 mL syringe 70 mg subcut Q12H RF: 0 Referrals Referrals: Gerard Barnes [Primary Care Provider] - Discharge Problem: Chest pain Qualifiers: Chest pain type: unspecified Qualified Code(s): R07.9 - Chest pain, unspecified Acute pulmonary embolism Qualifiers: Pulmonary embolism type: other Acute cor pulmonale presence: without acute cor pulmonale Qualified Code(s): I26.99 - Other pulmonary embolism without acute cor pulmonale
[2020-08-23 15:05] LABS: Base Excess VBG 2.3 mEq/L; Oxygen Saturation VBG 69.3 %; pH VBG 7.44 (7.36-7.41)
--- NOTE | 2020-08-23 15:05 | XRay Report ---
XR chest 1V portable HISTORY: 60 years-old Male sob acute shortness of breath COMPARISON: Chest radiograph 08/07/2020, PET CT 07/24/2020 TECHNIQUE: Portable AP view of the chest FINDINGS: Cardiomediastinal and hilar silhouettes are within normal limits. The known left apical neoplasm is b ty seen on comparison PET/CT. Chronic interstitial coarsening and emphysema. No pneumothorax, pleu ral effusion or overt pulmonary edema. The previously questioned 4 mm nodule of the left midlung is n ot appreciated on today's study. Cervical spinal fusion hardware. IMPRESSION: 1. No acute process. 2. Emphysema with chronic interstitial coarsening ACT 112: Negative or not required by law. The above report was generated using voice recognition software. It may contain grammatical, syntax o r spelling errors. Electronically signed by: Manuelito Piña M.D. 08/23/2020 3:04 PM
[2020-08-23 15:08] LABS: Eosinophils # (auto) 0.03 K/uL (0-0.5); Eosinophils % (auto) 0.5 %; Hematocrit (blood only) 35.4 % (42-52); Hemoglobin 12.3 g/dL (14.0-18.0); Immature Granulocytes # (auto) 0.01 K/uL (0.00-0.02); Immature Granulocytes % (auto) 0.2 %; Lymphocytes # (auto) 0.34 K/uL (1.2-3.4); Lymphocytes % (auto) 5.4 %; Mean Corpuscular Hemoglobin 34.9 pg (25-34); Mean Corpuscular Hgb Conc 34.7 g/dL (32-36); Mean Corpuscular Volume 100.6 fL (80-100); Mean Platelet Volume 9.4 fL (7.4-10.4); Neutrophils # (auto) 5.93 K/uL (1.4-6.5); Neutrophils % (auto) 93.9 %; Platelet Count 238 K/uL (130-400); RDW Coefficient of Variation 14.8 % (11.5-14.5); Red Blood Count 3.52 M/uL (4.7-6.1); White Blood Count 6.31 K/uL (4.8-10.8)
[2020-08-23 15:21] LABS: Prothrombin Time 9.7 Seconds (9.0-12.0)
[2020-08-23 15:32] LABS: Alanine Aminotransferase 116 U/L (12-78); Albumin Level 2.8 gm/dl (3.4-5.0); Aspartate Aminotransferase 48 U/L (15-37); BUN Creatinine Ratio 20.8 (10-20); Blood Urea Nitrogen 12 mg/dl (7-18); Carbon Dioxide 25 mmol/L (21-32); Chloride 99 mmol/L (98-107); Creatinine Clr Calc Pharmacy 135.8 ml/min; Est GFR (African American) 126.6; Est GFR (Non-African American) 109.3; Glucose 109 mg/dl (70-99); Magnesium 1.8 mg/dl (1.8-2.4); Potassium 4.2 mmol/L (3.5-5.1); Sodium 132 mmol/L (136-145)
--- NOTE | 2020-08-23 15:34 | Electrocardiogram Report ---
Test Reason : Blood Pressure : / mmHG Vent. Rate : 138 BPM Atrial Rate : 138 BPM P-R Int : 124 ms QRS Dur : 084 ms QT Int : 294 ms P-R-T Axes : 053 -05 055 degrees QTc Int : 445 ms Poor data quality, interpretation may be adversely affected Sinus tachycardia Nonspecific ST abnormality Abnormal ECG When compared with ECG of 07-AUG-2020 20:48, No significant change was found Confirmed by Neto Kate ([id number]) on 08/23/2020 3:33:38 PM Referred By: Confirmed By:Neto Kate
[2020-08-23 15:42] LABS: Albumin Globulin Ratio 0.7 (0.9-2); Alkaline Phosphatase 88 U/L (45-117); Bilirubin,Total 0.6 mg/dl (0.2-1); Globulin 3.8 gm/dl (2.5-4.0); NT Pro B Type Natriuretic Pept 106 pg/ml (0-900); Thyroid Stimulating Hormone 0.773 uIu/ml (0.300-4.500); Total Protein 6.6 gm/dl (6.4-8.2); Troponin I < 0.015 ng/ml (0-0.045)
[2020-08-23] MEDS ORDERED: OPTIRAY 320 125ml IV ONE (16:05)
--- NOTE | 2020-08-23 16:21 | CT Scan Report ---
CT ANGIOGRAM OF THE CHEST CLINICAL HISTORY: Torus of breath. Hypoxia. History of carcinoma. COMPARISON STUDY: 07/12/2020 TECHNIQUE: Following the IV administration of 120 mL of Optiray-320, CT angiogram of the thorax was p erformed from the thoracic inlet to the lung bases utilizing the pulmonary embolus protocol. Images a re reviewed in the axial, sagittal, and coronal planes. IV contrast was administered without complica tion. MIP imaging was performed. A dose lowering technique was utilized adhering to the principles o f ALARA. CT DOSE: 336.83 mGy.cm FINDINGS: There is hepatic steatosis. There is a persistent 3 cm left hilar mass/adenopathy. There are mildly enlarged right hilar lymph no emre. There is no pathologic axillary lymphadenopathy. There was no evidence of thoracic aortic dilatation. There are small pulmonary artery filling defects within the right upper lobe right lower lobe and lef t lower lobe. The findings are indicative of acute pulmonary embolism. There is no evidence of right ventricular strain No pleural effusions are visualized. There are groundglass opacities within the right lower lobe, possibly secondary to areas of pulmonary infarction. There is moderately severe pulmonary emphysema. There is a left apical pulmonary mass wi th underlying destruction of the left second rib.. IMPRESSION: 1. Bilateral pulmonary filling defects consistent with acute pulmonary embolism 2. No evidence of right ventricular strain 3. 4.5 cm left apical pulmonary mass with underlying rib destruction 4. Persistent 3 cm left hilar mass/adenopathy 5. Right lower lobe groundglass opacities, pulmonary infarcts versus infectious/inflammatory 6. Severe pulmonary emphysema ACT 112: Negative or not required by law. Electronically signed by: Dima Reyes M.D. 08/23/2020 4:19 PM
[2020-08-23] MEDS ORDERED: Heparin IV Adult Wt-Based Standard WITH Bolus Protocol IV STA (16:25)
[2020-08-23] MEDS ORDERED: HEPARIN SODIUM/DEXTROSE 25,000 UNITS/500 ML BAG IV SCH (16:30)
[2020-08-23] MEDS ORDERED: Heparin BOLUS **ED Use Only IV STA (16:40)
--- NOTE | 2020-08-23 17:18 | History & Physical Report ---
Date of Service August 23, 2020 Assessment & Plan (1) Acute pulmonary embolism: Unclear if Lovenox failure versus just movement of his DVTs to his lung - he has been on Lovenox for the last 2 weeks. Heparin IV standard with bolus - recommend for 48 hours Consult heme/oncologist Dr. Su regarding ongoing anticoagulation to see whether this needs to be changed from Lovenox long-term - discussed case over the phone (2) DVT (deep venous thrombosis): History of such, previous on lovenox for 3 weeks (3) Pancoast tumor of left lung: Discussed with Dr Su, recommended reducing his dexamethasone to 2mg PO B ID Lorazepam PRN for back spasms Will continue his usual fentanyl patch, gabapentin and morphine PRN for pain relief (4) GERD (gastroesophageal reflux disease): Switch omeprazole to pantoprazole per hospital formulary (5) Glaucoma: Continue latanoprost eye drops (6) COPD (chronic obstructive pulmonary disease): Pulmonary emphysema noted on CT. No exacerbation suspected on admission as no wheezing on exam and no significant improvement with DuoNeb. Admission and Anticipated Discharge Date Admission Date: August 23, 2020 History of Present Illness Chief Complaint: Shortness of breath, back pain Primary Care Provider: Gerard Barnes Kris Butler is a 60 year old male with left lung pancoast adenocarcinoma currently undergoing chemotherapy (started current regimen on Wednesday) who presents to the ER with shortness of breath and back pain. Patient appears confused about timeline of events and feels he is here for back pain but also tells me he is having ongoing back pain for many months. He describes this as cramping in his back which happens intermittently and feels it has been getting worse over the last 2 days. He does note shortness of breath but reports this is been ongoing for some time as well. More thorough history taken from his . She notes sudden onset shortness of breath occurred yesterday afternoon with a nonproductive cough, no fevers or chills. She does note he is chronically a bit out of breath on exertion but the prior 3 days he had a good amount of energy. Yesterday because of the shortness of breath she advised him to come to the hospital although he declined. He felt significantly unwell that he did not want to take any of his medications including Lovenox but otherwise has been compliant with his medication since being diagnosed with a DVT approximately 3 weeks ago. He did have his dose of Lovenox this morning. This morning he was increasingly shortness of breath so he came in by ambulance both he and his are unsure about the dexamethasone dosing. In the ER CT for PE was positive for bilateral pulmonary emboli. Started on an IV heparin drip with bolus. He was referred to medicine for admission and ongoing management of bilateral PEs. Allergies Allergy/AdvReac Type Severity Reaction Status Date / Time No Known Allergies Allergy Verified 08/23/20 15:05 Home Medications Medication Instructions Recorded Confirmed Type latanoprost 1 drp OPB HS 04/25/19 08/23/20 History omeprazole 20 mg PO QAM 04/25/19 08/23/20 History acetaminophen [Tylenol 8 Hour] 650 mg PO DIRECTED PRN 01/14/20 08/23/20 History cyclobenzaprine 10 mg PO HS 06/11/20 08/23/20 History gabapentin 300 mg capsule 300 mg PO BID cap 08/05/20 08/23/20 History dexamethasone 4 mg PO Q8 PRN 08/07/20 08/23/20 History fentanyl 50 mcg/hr transdermal 1 patch TRANSDERMAL Q72H #2 ea 08/13/20 08/23/20 Rx patch morphine 15 mg immediate release 15 mg PO Q6H PRN #45 tab 08/15/20 08/23/20 Rx tablet enoxaparin 70 mg SUBCUT Q12H 08/23/20 08/23/20 History apixaban [Eliquis] 5 mg PO BID #60 tab 08/24/20 Rx Past Med/Surg History Medical History (Updated 08/24/20 @ 08:12 by Giovani Chen MD) Anxiety Cervical disc disease prescribed prednisone taper x6 days- to be completed approximately 8/2 Chronic anticoagulation Consciousness alteration COPD (chronic obstructive pulmonary disease) stable DVT (deep venous thrombosis) GERD (gastroesophageal reflux disease) controlled Glaucoma History of migraine HTN (hypertension) Malignant neoplasm of upper lobe, left bronchus or lung Pancoast tumor Tobacco abuse Weakness of left upper extremity Surgical History History of eyelid surgery History of surgery mult benign tumors removed from neck History of surgery benign growth removed from RLE History of tooth extraction History of vocal cord polypectomy S/P cervical spinal fusion Family History Father Cancer Myocardial infarction Grandmother (Maternal) Cancer Other Asthma Diabetes Heart disease Social History Smoking Status: Current every day smoker Tobacco Type: Cigarettes Age Started Using Tobacco: 14; packs per day: 2; Cigarettes Per Day: 40 (tobacco use x 45+ years); Second Hand Exposure: No; Tobacco Cessation Education Requested by Patient: No Hx Alcohol Use: No Hx Substance Use: No Preferred Language: Estonian Communication Ability: Effective Visual Impairment: No Limitations Tram Inspector Required: No Beliefs That Will Affect Care: None marital status: Current Living Situation: Spouse Current Living Situation Comment: Lives w/spouse and 4 grandchildren current occupation: currently on short term disability from [employer] in [place] How many Children do You have: 2 Other Information That Helps Us Care for You: No other: currently raising adopted 4 grandchildren Feels Safe at Home: Yes Childhood Exposure to Second-Hand Smoke: Yes caffeine: Yes (coffee 3-4 pots/day) during the past year weight has: remained stable Dental Care, Regularly: No Physical Activity Frequency: Does not Exercise Physical Activity Frequency Comment: limited due to pain and limited rom of lue Seatbelt Use: other Sunscreen Use: No Assistive Devices: None Review of Systems Review of Systems: All systems reviewed & are unremarkable except as noted in HPI & below Musculoskeletal: Cramping back pain Physical Exam Constitutional: well developed; + not well nourished Neck: trachea midline Respiratory: + labored breathing, + uses accessory muscles and able to speak in complete sentences; no cough Cardiovascular: Rate/Rhythm: regular rhythm and + tachycardic Heart Sounds: no murmur Gastrointestinal (Abdomen): normal bowel sounds, soft, nontender, no hepatosplenomegaly Musculoskeletal: no cyanosis or clubbing, extremities motor strength 5/5 Skin: no rashes, warm and dry Neurologic: moves all extremities, awake and + confused (Confused about timeline of events) Motor/Sensory: + tremor (Resting) Psychiatric: Orientation: alert and oriented x 3 Eye Contact: good eye contact Affect: + anxious affect Mood: + anxious mood Genitourinary: no CVA tenderness Results & Data Results & Data ([facility]) Vital Signs (Past 12 Hours) Vital Signs Temp Pulse Pulse Resp BP Pulse Ox 08/23/20 17:10 122 H 19 93 08/23/20 15:28 142 H 24 129/99 96 08/23/20 15:14 87 L 08/23/20 15:11 134 H 20 97 08/23/20 14:33 96 08/23/20 14:29 94 08/23/20 14:24 36.9 C 152 H 24 102/39 L 94 Diagnostic Findings XR chest 1V portable IMPRESSION: 1. No acute process. 2. Emphysema with chronic interstitial coarsening CT ANGIOGRAM OF THE CHEST IMPRESSION: 1. Bilateral pulmonary filling defects consistent with acute pulmonary embolism 2. No evidence of right ventricular strain 3. 4.5 cm left apical pulmonary mass with underlying rib destruction 4. Persistent 3 cm left hilar mass/adenopathy 5. Right lower lobe groundglass opacities, pulmonary infarcts versus infectious/inflammatory 6. Severe pulmonary emphysema Code Status & VTE Plan Code Status Full - patient adamant regarding this VTE Prophylaxis Plan VTE Prophylaxis will be ordered: Yes PG Care Time/CCT Total # of Minutes Spent Total Time Spent with Patient: Total time spent is greater than 50% in coordination of care (as documented) at patient's floor/unit and/or counseling patient: Coding Level of Care Code 09873 Initial Inpt Care Lvl 3 Diagnoses Acute pulmonary embolism I26.99 Acute cor pulmonale presence: without acute cor pulmonale Pulmonary embolism type: other DVT (deep venous thrombosis) I82.409 Pancoast tumor of left lung C34.12 GERD (gastroesophageal reflux disease) K21.9 Glaucoma H40.9 COPD (chronic obstructive pulmonary disease) J44.9 (1) Acute pulmonary embolism Acute cor pulmonale presence: without acute cor pulmonale Pulmonary embolism type: other Qualified Code(s): I26.99 - Other pulmonary embolism without acute cor pulmonale
[2020-08-23 17:20] LABS: Partial Thromboplastin Time 26.1 Seconds (21.0-31.0)
[2020-08-23] MEDS ORDERED: MoRPHine SULFATE IR 15 MG TAB (IMMEDIATE RELEASE) PO PRN (18:21)
[2020-08-23] MEDS ORDERED: NON-FORMULARY MEDICATION (Acetaminophen [Tylenol 8 Hour] 650 mg Tablet Extended Release) PO PRN (18:21)
[2020-08-23] MEDS ORDERED: ACETAMINOPHEN 325 MG TAB PO PRN (18:21)
[2020-08-23] MEDS ORDERED: ONDANSETRON INJ 2 MG/ML 2 ML VIAL IV PRN (18:21)
[2020-08-23] MEDS ORDERED: LORazepam 1 MG TAB PO PRN (20:24)
[2020-08-23] MEDS: GABAPENTIN 300 MG CAP PO SCH (20:25)
[2020-08-23] MEDS ORDERED: CYCLOBENZAPRINE HCL 10 MG TAB PO SCH (21:00)
[2020-08-23] MEDS ORDERED: LATANOPROST 0.005% OP SOLN 2.5 ML BTL OPB SCH (21:00)
[2020-08-23 23:58] LABS: Partial Thromboplastin Ratio 3.1
[2020-08-24 00:04] LABS: Partial Thromboplastin Time 82.6 Seconds (21.0-31.0)
[2020-08-24] MEDS: CHECK fentaNYL PATCH PLACEMENT SCH ×2 (00:05→08:00)
[2020-08-24 05:57] LABS: Hematocrit (blood only) 33.2 % (42-52); Hemoglobin 11.5 g/dL (14.0-18.0); Immature Granulocytes # (auto) 0.01 K/uL (0.00-0.02); Immature Granulocytes % (auto) 0.2 %; Lymphocytes # (auto) 0.25 K/uL (1.2-3.4); Lymphocytes % (auto) 5.9 %; Mean Corpuscular Hemoglobin 34.3 pg (25-34); Mean Corpuscular Hgb Conc 34.6 g/dL (32-36); Mean Corpuscular Volume 99.1 fL (80-100); Mean Platelet Volume 9.2 fL (7.4-10.4); Monocytes # (auto) 0.03 K/uL (0.11-0.59); Monocytes % (auto) 0.7 %; Neutrophils # (auto) 3.97 K/uL (1.4-6.5); Neutrophils % (auto) 93.2 %; Nucleated RBC # (auto) 0.02 K/uL (0-0); Nucleated RBC % (auto) 0.4 %; Platelet Count 226 K/uL (130-400); RDW Coefficient of Variation 14.5 % (11.5-14.5); RDW Standard Deviation 52.4 fL (36.4-46.3); Red Blood Count 3.35 M/uL (4.7-6.1); White Blood Count 4.26 K/uL (4.8-10.8)
[2020-08-24 06:16] LABS: Partial Thromboplastin Ratio 2.6
[2020-08-24 06:23] LABS: Est GFR (African American) 129.4; Est GFR (Non-African American) 111.6; Potassium 4.1 mmol/L (3.5-5.1)
[2020-08-24 06:53] LABS: Partial Thromboplastin Time 67.1 Seconds (21.0-31.0)
[2020-08-24 07:46] VITALS: BP 154/97; PULSE 80; TEMP 97.7; O2SAT 95
[2020-08-24] MEDS: GABAPENTIN 300 MG CAP PO SCH (08:00)
[2020-08-24 08:09] LABS: Appearance Urine Clear (Clear); Bacteria Urine Automated Negative (Negative); Bilirubin Urine Negative (Negative); Blood Urine 1+ (Negative); Cast Urine Automated 0 /lpf (0-5); Color Urine Yellow; Glucose Urine UA Negative (Negative); Ketones Urine Negative (Negative); Leukocyte Esterase Urine Negative (Negative); Nitrite Urine Negative (Negative); Protein Urine Negative (Negative); Specific Gravity Urine 1.014 (1.000-1.030); Urobilinogen Urine Negative (Negative); pH Urine 7.5 (4.5-7.5)
[2020-08-24] MEDS ORDERED: ALBUT/IPRATROP 3MG/0.5MG NEB 3 ML VIAL NEB PRN (08:12)
--- NOTE | 2020-08-24 08:52 | Consultation Report ---
DATE OF CONSULTATION: 08/24/2020 REASON FOR CONSULTATION: 1. Pulmonary embolism. 2. Left lower extremity deep venous thrombosis. 3. Pancoast tumor/metastatic nonsmall cell lung cancer. HISTORY OF PRESENT ILLNESS: The patient is a pleasant 60-year-old gentleman well known to [facility], currently under my care for recent diagnosis of Pancoast tumor involving the left upper lobe. He received his first course of Alimta, carboplatin, and pembrolizumab on 08/19/2020. Leading up to initial treatment, he received palliative XRT to the tumor itself because of significant pain issues associated with tumor encroachment. He last saw my physician machine spring former, Herlinda ARIAS, prior to starting chemotherapy. This gentleman has been on dexamethasone for considerable period of time and thus suspect along with the patient's sedentary nature, not surprising he developed a DVT and PE. He has had significant pain issues now followed by the pain management service utilizing both long-acting and short acting opioids. According to the patient what brought him into the hospital was muscle spasms and involuntary shakes and chills. He also noticed his left lower extremity swelling. He had been placed on Lovenox and relates compliance, which certainly questions the possibility of anticoagulant failure. Again, he received his first course of chemotherapy on the 19 of August. Clinically, he feels well this morning and anxious to go home. Obviously needs to be converted to an oral anticoagulant later today. He has no specific complaints for me. PAST MEDICAL HISTORY: Significant for anxiety, metastatic nonsmall cell lung cancer (Pancoast tumor), chronic anticoagulation, COPD, DVT, gastroesophageal reflux disease, glaucoma, history of migraine, tobacco abuse. PAST SURGICAL HISTORY: Status post eyelid surgery, multiple benign tumors removed from his neck, benign growth removed from the right lower extremity, tooth extraction, vocal cord polypectomy and a cervical spinal fusion. MEDICATIONS: Lovenox 70 mg subQ q. 12 hours, morphine immediate release 15 mg p.o. q. 6 hours, fentanyl 50 mcg topically q. 72 hours, dexamethasone 4 mg p.o. q. 8 hours p.r.n., gabapentin 300 mg p.o. b.i.d., cyclobenzaprine 10 mg p.o. at bedtime, Tylenol 650 mg p.o. as directed p.r.n., omeprazole 20 mg p.o. daily, Latanoprost 1 drop at bedtime. ALLERGIES: No known drug allergies. FAMILY HISTORY: Father attributable to heart disease and cancer. Maternal grandmother of cancer. SOCIAL HISTORY: He is a 10-gtyt-emat history, lives with his spouse and 4 grandchildren. 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 REVIEW OF SYSTEMS: GENERAL: As per HPI negative for fevers, chills or sweats. His appetite is voracious. SKIN: No rashes or lesions. HEENT: He denies headaches, lightheadedness or dizziness. No acute visual or hearing deficits. No sinus symptoms, sore throat or dysphagia. LYMPH: No history of lymphoproliferative disease. CARDIAC: Negative for coronary artery disease. No current angina or palpitations. PULMONARY: Metastatic nonsmall cell lung cancer (Pancoast tumor). GASTROINTESTINAL: Negative for abdominal pain, nausea, vomiting, diarrhea or constipation, hematochezia or melena stools. GENITOURINARY: No hematuria, dysuria or urinary incontinence. PSYCHIATRIC: Positive for anxiety. Negative for depression or psychoses. ENDOCRINE: Negative for diabetes or thyroid disease. MUSCULOSKELETAL: This gentleman has had chronic pain issues, mostly involving the upper trunk and left shoulder attributable to Pancoast tumor. Currently, seeing pain management. HEMATOLOGIC: Positive for mild normocytic normochromic anemia. PHYSICAL EXAMINATION: GENERAL: Very pleasant 60-year-old, awake, alert and appropriate, in no acute distress. VITAL SIGNS: Temperature 36.6, pulse 82, respiratory rate 18, blood pressure 129/89. SKIN: Warm, dry, noncyanotic without petechia, rash or ecchymosis. HEENT: Head is atraumatic, normocephalic. Eyes: PERRLA, EOMI. Sclerae nonicteric. No conjunctival discharge. Nares patent without rhinorrhea or discharge. Throat is clear. Tongue is midline. Mucous membranes are moist. NECK: Supple without JVD or thyromegaly. LYMPHATICS: No cervical, supraclavicular, axillary palpable nodes. HEART: Regular rate and rhythm. No clicks, rubs, murmurs or gallops. LUNGS: Diminished breath sounds in the upper half of the left lung posteriorly. He has got some wheezes and tubular breath sounds heard scattered throughout. ABDOMEN: Soft, nontender, nondistended, without palpable hepatosplenomegaly. EXTREMITIES: There is notable left lower extremity swelling as compared to right. No peripheral edema noted. His strength and pulses are equal in all 4 quadrants, otherwise. NEUROLOGICALLY: He is awake, alert and oriented x3. Cranial nerves are intact. LABORATORY DATA: WBC count 4260, hemoglobin 11.5, platelet count 226,000. His PTT 67.1 seconds, currently on unfractionated heparin. Sodium 132, potassium 4.1, chloride 100, carbon dioxide 26, creatinine 0.56, BUN 17, AST 48, ALT 116. RADIOGRAPHIC DATA: CTA of the chest, bilateral pulmonary filling defects consistent with pulmonary embolism. No evidence of right ventricular strain 4.5 cm left apical pulmonary mass with underlying rib destruction persistent 3 cm left hilar mass, adenopathy, severe pulmonary emphysema. Doppler studies performed on 08/09/2020 confirmed left lower extremity DVT. The patient was subsequently placed on 70 mg Lovenox b.i.d. IMPRESSION: 1. Pulmonary embolism. 2. History of left lower extremity deep venous thrombosis diagnosed in mid 07/2020. 3. Pancoast tumor locally advanced non-small cell lung cancer. 4. Chronic pain syndrome, attributable to nonsmall cell lung cancer. 5. Status post cycle 1 carboplatin, Alimta and pembrolizumab. PLAN: The patient is a pleasant, somewhat unfortunate and complex gentleman that I follow at [facility] with a relatively new diagnosis of locally advanced lung cancer. This gentleman had presented with Pancoast tumor earlier this year, was in considerable pain and necessitating initiation of dexamethasone and palliative radiation therapy. He had recently completed radiation and is followed by pain management as well for pain control. Apparently, he had some shakes and agitation muscle spasms as well as shortness of breath, brought him into the [facility] and CTA of the chest confirmed pulmonary embolism despite being on a b.i.d. Lovenox. The patient vows he was compliant and does have to assume Lovenox failure which is quite rare. He may have also been just mildly under diagnosed as he weighs 76.5 kilograms and was dosed to 70 mg less than shy about 5 mg per dosing standard. That said, I have recommended the unfractionated heparin and convert him to DOAC. I would prefer Eliquis 5 mg p.o. b.i.d. for better coverage and hopefully he will not fail anticoagulation. He received his first course of Alimta, carboplatin, and pembrolizumab and thus much too early to determine response. The patient feels well. His appetite is voracious. He is ambulating ad demarco and voices no concerns in regards to his pain management. Thus, once the anticoagulation is successfully converted from an oncologic standpoint, he could be discharged. He has established follow up through a CCP as he will be due for his next chemotherapy around 09/07/2020. I have no further issues with the patient this morning. Thank you very much for allowing me to participate in his care. Call me at any time if there are any concerns. MTDD
[2020-08-24] MEDS ORDERED: PANTOprazole 40 MG TAB PO SCH (09:00)
[2020-08-24] MEDS ORDERED: dexAMETHasone 1 MG TAB PO SCH (09:00)
[2020-08-24] MEDS ORDERED: APIXABAN 5 MG TABLET PO SCH (09:15)
--- NOTE | 2020-08-24 17:54 | Discharge Summary ---
Date of Service August 24, 2020 Admission HPI Per Admitting Provider Kris Butler is a 60 year old male with left lung pancoast adenocarcinoma currently undergoing chemotherapy (started current regimen on Wednesday) who presents to the ER with shortness of breath and back pain. Patient appears confused about timeline of events and feels he is here for back pain but also tells me he is having ongoing back pain for many months. He describes this as cramping in his back which happens intermittently and feels it has been getting worse over the last 2 days. He does note shortness of breath but reports this is been ongoing for some time as well. More thorough history taken from his . She notes sudden onset shortness of breath occurred yesterday afternoon with a nonproductive cough, no fevers or chills. She does note he is chronically a bit out of breath on exertion but the prior 3 days he had a good amount of energy. Yesterday because of the shortness of breath she advised him to come to the hospital although he declined. He felt significantly unwell that he did not want to take any of his medications including Lovenox but otherwise has been compliant with his medication since being diagnosed with a DVT approximately 3 weeks ago. He did have his dose of Lovenox this morning. This morning he was increasingly shortness of breath so he came in by ambulance both he and his are unsure about the dexamethasone dosing. In the ER CT for PE was positive for bilateral pulmonary emboli. Started on an IV heparin drip with bolus. He was referred to medicine for admission and ongoing management of bilateral PEs. Principal Diagnosis Bilateral PEs Discharge Exam Constitutional WD/WN, vitals as above Eyes EOM intact bilaterally; no conjunctival abnormality ENMT external ear and nose normal, oropharynx normal Neck trachea midline, no thyromegaly normal visual inspection Respiratory normal respiratory effort, lungs clear to auscultation no respiratory distress Cardiovascular RRR, no murmur, no edema Gastrointestinal (Abdomen) Inspection/Auscultation: abdomen normal to inspection; abdomen not distended Musculoskeletal no cyanosis or clubbing, extremities motor strength 5/5 Skin no rashes, warm and dry Neurologic moves all extremities and awake Psychiatric Orientation: alert, oriented to person and cooperative Discharge Data Allergies Allergy/AdvReac Type Severity Reaction Status Date / Time No Known Allergies Allergy Verified 08/23/20 15:05 Consultations 03/05/21 16:31 ED Decision to Admit Stat 08/23/20 18:21 Consult Hematology Routine Ordered Studies 08/23/20 15:51 CT angio chest PE protocol Stat Hospital Course (1) Acute pulmonary embolism: Unclear if Lovenox failure versus just movement of his DVTs to his lung - he has been on Lovenox for the last 2 weeks. Heparin IV standard with bolus - recommend for 48 hours Consult heme/oncologist Dr. Su regarding ongoing anticoagulation to see whether this needs to be changed from Lovenox long-term - discussed case over the phone - Discussed wtih Dr. Su. Plan for apixaban 5 mg PO BID (since he has already been on Lovenox for 2 weeks, no need for loading dose). Will follow up. Patient was in good spirits, hemodynamically stable, not short of breath, and asked to go home. No concerns with discharge per oncology. (2) DVT (deep venous thrombosis): History of such, previous on lovenox for 3 weeks (3) Pancoast tumor of left lung: Discussed with Dr Su, recommended reducing his dexamethasone to 2mg PO BID Lorazepam PRN for back spasms Will continue his usual fentanyl patch, gabapentin and morphine PRN for pain relief (4) GERD (gastroesophageal reflux disease): Switch omeprazole to pantoprazole per hospital formulary (5) Glaucoma: Continue latanoprost eye drops (6) COPD (chronic obstructive pulmonary disease): Pulmonary emphysema noted on CT. No exacerbation suspected on admission as no wheezing on exam and no significant improvement with DuoNeb. Total Time Total Time Spent Total Time Spent (In Minutes): 35 Discharge Plan Discharge Items Patient Disposition: Home - Self-Care Reason For Visit: BILATERAL PE Discharge Diagnosis: Pulmonary embolism Activity: Resume your previous activity Non-emergency contact: Primary Care Provider and Oncologist Call non-emergency contact if: your symptoms worsen Follow-up/Referrals: Gerard Su DO [Physician] - (Follow up at your regular appointment.) Gerard Barnes [Primary Care Provider] - Diet: Heart Healthy Addtl Attending Provider Instructions: Mr. Butler, You were admitted with a pulmonary embolism which is a blood clot in your lungs. This may have come from the known clot in your legs. We are switching you from your Lovenox shots to an oral blood thinner called Eliquis. This is a twice-a-day medication just like the Lovenox. Do NOT take both the Lovenox and Eliquis as this will make your blood too thin and would cause bleeding. Please follow up with Dr. Su at your normal visit. Please call the office or come to the hospital if you have any bleeding, more shortness of breath, lightheadedness, black stools, or other concerning symptoms. Pending Studies at Discharge: No Stand-Alone Forms: My [facility], Smoking Cessation Medications and DC Order Prescriptions: New Eliquis 5 mg Tablet 5 mg PO BID Qty: 60 RF: 0 Continued gabapentin 300 mg capsule 300 mg PO BID RF: 0 fentanyl 50 mcg/hr patch 72 hour 1 patch transdermal Q72H Qty: 2 RF: 0 morphine 15 mg tablet 15 mg PO Q6H PRN (Reason: pain) Qty: 45 RF: 0 latanoprost 0.005 % drops 1 drp OPB HS RF: 0 omeprazole 20 mg capsule,delayed release(DR/EC) 20 mg PO QAM RF: 0 acetaminophen [Tylenol 8 Hour] 650 mg Tablet Extended Release 650 mg PO DIRECTED PRN (Reason: Pain) RF: 0 dexamethasone 4 mg Tablet 4 mg PO Q8 PRN (Reason: NEEDED) RF: 0 cyclobenzaprine 10 mg tablet 10 mg PO HS RF: 0 Discontinued enoxaparin 80 mg/0.8 mL syringe 70 mg subcut Q12H RF: 0 Discharge Orders: Discharge Order (Routine); Ordered 08/24/20 Ordered By: Dale Somers/Other Patient Handouts: Pulmonary Embolism, Embolism Pulmonary Dc Admission Data Admit Date/Time: 08/23/20 17:17 Attending Provider: Dale Herrera Admit Provider: Giovani Chen Primary Care Provider: Gerard Barnes Other Providers: Gerard Su V. ; Dale Herrera Other Interventions: Discharge Summary Assessment (RN) Last Done: 08/24/20 12:08 Coding Level of Care Code D/C Day Management >30 mins Diagnoses Acute pulmonary embolism I26.99 Acute cor pulmonale presence: without acute cor pulmonale Pulmonary embolism type: other DVT (deep venous thrombosis) I82.409 Pancoast tumor of left lung C34.12 GERD (gastroesophageal reflux disease) K21.9 Glaucoma H40.9 COPD (chronic obstructive pulmonary disease) J44.9
[2020-08-26] MEDS ORDERED: fentaNYL 50 MCG/HR TDSY TD SCH (09:00)
== END 2020-08-24 12:31 | disposition home or self-care (01) ==
LOC: ED 14:21 → SUATTDRO 17:17 → INTOOBSV 17:17 → 2S 17:17

== ENCOUNTER 2020-10-19 14:30 | Inpatient (IN) ==
[2020-10-19] MEDS ORDERED: FAMOTIDINE 20MG IV PUSH 20 MG/5 ML SYR IV STA (15:00)
[2020-10-19] MEDS ORDERED: METOCLOPRAMIDE HCL INJ 5 MG/ML 2 ML VIAL IV STA (15:00)
[2020-10-19] MEDS ORDERED: diphenhydrAMINE 50 MG/ML VIAL IV STA (15:00)
[2020-10-19] MEDS ORDERED: SODIUM CHLORIDE 0.9% 1000ML 1,000 ML IV ONE (15:01)
[2020-10-19] MEDS ORDERED: ACETAMINOPHEN 1,000 MG/100 ML VIAL IV STA (15:01)
--- NOTE | 2020-10-19 15:17 | XRay Report ---
XR chest 1V portable CLINICAL HISTORY: Atypical chest pain COMPARISON STUDY: 10/04/2020 FINDINGS: The cardiac and mediastinal contours remain stable. There is stable biapical opacities. Pos tsurgical changes are present within the cervical spine[ IMPRESSION: 1. Stable biapical opacities 2. No acute findings. No evidence of acute parenchymal consolidation ACT 112: Negative or not required by law. Electronically signed by: Dima Reyes M.D. 10/19/2020 3:15 PM
[2020-10-19 15:31] LABS: Basophils # (auto) 0.01 K/uL (0-0.2); Basophils % (auto) 0.2 %; Eosinophils # (auto) 0.01 K/uL (0-0.5); Eosinophils % (auto) 0.2 %; Hematocrit (blood only) 29.4 % (42-52); Hemoglobin 10.3 g/dL (14.0-18.0); Immature Granulocytes # (auto) 0.02 K/uL (0.00-0.02); Immature Granulocytes % (auto) 0.4 %; Lymphocytes # (auto) 0.49 K/uL (1.2-3.4); Lymphocytes % (auto) 9.5 %; Mean Corpuscular Hemoglobin 34.7 pg (25-34); Mean Platelet Volume 8.8 fL (7.4-10.4); Monocytes # (auto) 0.77 K/uL (0.11-0.59); Neutrophils # (auto) 3.85 K/uL (1.4-6.5); Neutrophils % (auto) 74.7 %; Platelet Count 389 K/uL (130-400); RDW Coefficient of Variation 16.4 % (11.5-14.5); RDW Standard Deviation 59.2 fL (36.4-46.3); Red Blood Count 2.97 M/uL (4.7-6.1); White Blood Count 5.15 K/uL (4.8-10.8)
[2020-10-19] MEDS ORDERED: OPTIRAY 350 500ml IV ONE (15:37)
[2020-10-19 15:43] LABS: INR 1.1 (0.9-1.1)
[2020-10-19 15:50] LABS: Alanine Aminotransferase 20 U/L (12-78); Albumin Level 3.4 gm/dl (3.4-5.0); Aspartate Aminotransferase 12 U/L (15-37); BUN Creatinine Ratio 20.6 (10-20); Bilirubin Direct 0.1 mg/dl (0-0.2); Blood Urea Nitrogen 11 mg/dl (7-18); Carbon Dioxide 27 mmol/L (21-32); Chloride 102 mmol/L (98-107); Creatinine Clr Calc Pharmacy 145.6 ml/min; Est GFR (African American) 130.4; Est GFR (Non-African American) 112.5; Glucose 110 mg/dl (70-99); Lipase 80 U/L (73-393); Magnesium 1.4 mg/dl (1.8-2.4); Potassium 3.2 mmol/L (3.5-5.1); Sodium 136 mmol/L (136-145)
[2020-10-19 15:54] LABS: Albumin Globulin Ratio 0.9 (0.9-2); Alkaline Phosphatase 101 U/L (45-117); Bilirubin,Total 0.4 mg/dl (0.2-1); Globulin 3.6 gm/dl (2.5-4.0); Phosphorus 2.6 mg/dl (2.5-4.9); Troponin I < 0.015 ng/ml (0-0.045)
--- NOTE | 2020-10-19 16:08 | CT Scan Report ---
CT head/brain wo con CLINICAL HISTORY: headache, vomiting, metastatic ca COMPARISON STUDY: 09/22/2020 TECHNIQUE: Axial CT of the brain is performed from the vertex to the skull base. IV contrast was not administered for this examination. A dose lowering technique was utilized adhering to the principles of ALARA. CT DOSE: FINDINGS: No intra or extra-axial mass lesions are visualized. There is no CT evidence of acute cortical infarc tion. There is no evidence of midline shift. There is no acute hemorrhage. No calvarial fractures ar e visualized. There are patchy white matter hypodensities likely on a small vessel basis. There is no evidence of pathologic ventricular dilatation. There is no evidence of acute sinusitis IMPRESSION: No acute intracranial findings ACT 112: Negative or not required by law. Electronically signed by: Dima Reyes M.D. 10/19/2020 4:07 PM
--- NOTE | 2020-10-19 16:18 | CT Scan Report ---
CT ANGIOGRAM OF THE CHEST CLINICAL HISTORY: Shortness of breath, vomiting, metastatic carcinoma. Possible acute pulmonary embol ism COMPARISON STUDY: 08/23/2020 TECHNIQUE: Following the IV administration of 119 mL of Optiray, CT angiogram of the thorax was perfo rmed from the thoracic inlet to the lung bases utilizing the pulmonary embolus protocol. Images are r eviewed in the axial, sagittal, and coronal planes. IV contrast was administered without complication . MIP imaging was performed. A dose lowering technique was utilized adhering to the principles of AL JANEE. CT DOSE: 1847.74 mGy.cm FINDINGS: There is interval decrease in the size of the previously identified left hilar mass There was no evidence of thoracic aortic dilatation. There were no pulmonary artery filling defects to indicate acute pulmonary embolism. No pleural effusions are visualized. There is a persistent left apical mass with secondary underlying second rib destruction. There is minesh dence for interval rib healing when compared the prior study the left apical mass appears slightly sm aller than on the prior study. The mass measures 37 mm in greatest diameter. There is severe underlyi ng emphysema. There is right apical pleural thickening/scarring. There is stable 5 mm right middle lo be pulmonary nodule. There is a stable 6 mm right lower lobe pulmonary nodule there is a stable 2.5 m m right apical pulmonary nodule. There is a stable 4 mm left upper lobe pulmonary nodule. There is a stable subpleural 4 mm left lower lobe pulmonary nodule. There is a stable 3 mm right lower lobe pulm onary nodule. There is a stable subpleural 4 mm right middle lobe pulmonary nodule IMPRESSION: 1. No evidence of acute pulmonary embolism 2. Slight interval decrease in the size of the left apical pulmonary mass with partial interval heali ng of an underlying destructive left second rib lesion. 3. Interval decrease in the size of the left hilar mass 4. Severe pulmonary emphysema 5. Stable subcentimeter pulmonary nodules ACT 112: Negative or not required by law. Electronically signed by: Dima Reyes M.D. 10/19/2020 4:17 PM
--- NOTE | 2020-10-19 16:26 | Emergency Department Note ---
Impression & Plan Metastatic disease, Vomiting, Hypomagnesemia, Hypokalemia ED Provider Note NAME: ROSALIE HUYNH AGE: 60 SEX: M ARRIVES VIA: Walk-In INFORMANT: Patient, ED PROVIDER(S): Michael Almanza MD CHIEF COMPLAINT: vomiting PLAN: Disposition: Admit MEDICAL DECISION MAKING: The patient is a pleasant 60-year-old gentleman with a past medical history of metastatic disease undergoing chemotherapy, history of PE on Eliquis, COPD, who presents to the emergency department with worsening nausea and vomiting, abdominal pain, headache, body aches which she reports has been ongoing for the duration of current chemo cycle and is typical but he cannot stand it anymore and does not want to complete his last treatment of this regimen and that is [facility] [place]. He reports that his understanding is that this treatment is part of palliative treatment. He reports having small amounts of blood in his emesis. Otherwise he denies any cough, congestion, fevers, diarrhea or urinary symptoms. The patient is ill-appearing, uncomfortable, afebrile, heart rate in the 100s and vital signs otherwise stable. He appears clinically dry. He has generalized abdominal discomfort without discrete tenderness. Rectal exam with scant brown stool, heme-occult negative. No melena or gross blood. EKG without overt acute ischemia. CXR negative for acute cardiopulmonary process. WBC and platelets wnl. H/H similar to prior. Chemistry without acidosis. BUN/Cr > 20 c/w patients clinically dry appearance. Potassium 3.2 and Magnesium 1.4 with repletion provided. Electrolytes unremarkable. LFTs without significant abnormality. Troponin negative/undetectable. Lipase wnl. Covid-19 PCR negative. Influenza and RSV PCR also negative. CT head negative for acute process. CTA chest negative for PE or focal infiltrates. Note is made of "slight interval decrease in the size of the left apical pulmonary mass with partial interval healing of an underlying destructive left second rib lesion and Interval decrease in the size of the left hilar mass". CT abdomen/pelvis however with progression of skeletal metastasis. Upon re-evaluation the patient did feel improved following IVF hydration, apap, compazine, diphenhydramine, famotidine. However, given patient's electrolyte abnormalities and tenuous symptoms, he agrees with plan for admission. Dr. Chen, [facility] hospitalist to evaluate the patient for admission. Triage Nursing notes reviewed and agree them. Prior medical records reviewed Vital Signs: reviewed and remarkable for tachycardia. Differential diagnosis: Gastroenteritis, food borne illness, infections, appendicitis, diverticulitis, inflammatory bowel disease, obstruction, GI bleed, biliary pathology, volvulus, as well as other pathologies. ER treatment provided: See below. Diagnostics interpreted by me: ECG: NSR, 79 bpm, no ectopy, no overt ST elevation or depression. Cardiac Monitoring: An order for continuous cardiac monitoring was placed and demonstrated NSR, 79 bpm, no ectopy. Laboratory studies: See below Imaging studies: See below Consultation(s): Dr. Chen, [facility] hospitalist to evaluate the patient for admission. HPI: The patient is a pleasant 60-year-old gentleman with a past medical history of metastatic disease undergoing chemotherapy, history of PE on Eliquis, COPD, who presents to the emergency department with worsening nausea and vomiting, abd ominal pain, headache, body aches which she reports has been ongoing for the duration of current chemo cycle and is typical but he cannot stand it anymore and does not want to complete his last treatment of this regimen and that is upcoming. He reports that his understanding is that this treatment is part of palliative treatment. He reports having small amounts of blood in his emesis. Otherwise he denies any cough, congestion, fevers, diarrhea or urinary symptoms. ROS: See above HPI for pertinent positives & negatives. A total of 10 systems reviewed and were otherwise negative. PAST MEDICAL HISTORY:See Below PAST SURGICAL HISTORY:See Below FAMILY HISTORY:See Below SOCIAL HISTORY:See Below HOME MEDICATIONS:See Below ALLERGIES:See Below VITALS:See Below PHYSICAL EXAMINATION: GENERAL: Awake, alert, uncomfortable/ill-appearing, in no distress HENT: Normocephalic, atraumatic. Oropharynx with dry mucous membranes and otherwise unremarkable. EYES: Normal conjunctiva. Sclera non-icteric. NECK: Supple. No nuchal rigidity. FROM. No JVD. RESPIRATORY: Clear to auscultation. CARDIAC: Regular rate, normal rhythm. Extremities warm and well perfused. Pulses equal. ABDOMEN: Soft, non-distended. Generalized abdominal discomfort without discrete tenderness to palpation. No rebound or guarding. No masses. RECTAL: cant brown stool, heme-occult negative. No melena or gross blood. . MUSCULOSKELETAL: Chest examination reveals no tenderness. The back is sy mmetrical on inspection without obvious abnormality. There is no CVA tenderness to palpation. No joint edema. LOWER EXTREMITIES: Calves are equal size bilaterally and non-tender. No edema. No discoloration. NEURO: Normal sensorium. No sensory or motor deficits noted. SKIN: No rash or jaundice noted. Michael Almanza MD Past Med/Surg History Medical History Anxiety Bilateral pulmonary embolism Cervical disc disease prescribed prednisone taper x6 days- to be completed approximately 8 Chronic anticoagulation Consciousness alteration COPD (chronic obstructive pulmonary disease) stable DVT (deep venous thrombosis) GERD (gastroesophageal reflux disease) controlled Glaucoma History of migraine HTN (hypertension) Malignant neoplasm of upper lobe, left bronchus or lung Pancoast tumor Tobacco abuse Weakness of left upper extremity Surgical History History of eyelid surgery History of surgery mult benign tumors removed from neck History of surgery benign growth removed from RLE History of tooth extraction History of vocal cord polypectomy S/P cervical spinal fusion Family History Father Cancer Myocardial infarction Grandmother (Maternal) Cancer Other Asthma Diabetes Heart disease Social History Smoking Status: Current every day smoker Tobacco Type: Cigarettes Age Started Using Tobacco: 14; packs per day: 2; Cigarettes Per Day: 1.5 pack per day.; Second Hand Exposure: No; Do You Dip or Chew Tobacco: No; Tobacco Cessation Education Requested by Patient: No Hx Alcohol Use: No Hx Substance Use: No Preferred Language: Belizean Communication Ability: Effective Visual Impairment: No Limitations Milk Drier Required: No Beliefs That Will Affect Care: None marital status: Current Living Situation: Spouse Current Living Situation Comment: Lives with . current occupation: currently on short term disability from [employer] in [place] How many Children do You have: 2 Other Information That Helps Us Care for You: No other: currently raising adopted 4 grandchildren Feels Safe at Home: Yes Safety Concerns: Feels Safe At This Time Childhood Exposure to Second-Hand Smoke: Yes caffeine: Yes (coffee 3-4 pots/day) during the past year weight has: remained stable Dental Care, Regularly: No Physical Activity Frequency: Does not Exercise Physical Activity Frequency Comment: limited due to pain and limited rom of lue Seatbelt Use: other Sunscreen Use: No Assistive Devices: Denture - Upper Allergies Allergies Allergy/AdvReac Type Severity Reaction Status Date / Time No Known Allergies Allergy Verified 10/19/20 15:39 Home Meds Home Medications Medication Instructions Recorded Confirmed latanoprost 1 drp OPB HS 04/25/19 10/19/20 omeprazole 20 mg PO QAM 04/25/19 10/19/20 acetaminophen [Tylenol 8 Hour] 650 mg PO DIRECTED PRN 01/14/20 10/19/20 cyclobenzaprine 10 mg PO HS 06/11/20 10/19/20 gabapentin 300 mg capsule 300 mg PO BID cap 08/05/20 10/19/20 dexamethasone 4 mg PO Q8 PRN 08/07/20 10/19/20 naloxone 4 mg/actuation nasal spray 4 mg INTRANASAL Q2M PRN 08/27/20 10/19/20 Previous Rx's Medication Instructions Recorded apixaban [Eliquis] 5 mg PO BID #60 tab 08/24/20 morphine 15 mg immediate release 15 mg PO Q6H PRN #45 tab 10/14/20 tablet fentanyl 100 mcg/hr transdermal 1 patch TRANSDERMAL Q72H #10 ea 10/17/20 patch Results & Data (ED) Vital Signs Vital Signs - 24 hr 10/19/20 14:35 10/19/20 16:23 10/19/20 16:30 Temperature 36.7 C Temperature Source Temporal Artery Scan Pulse Rate 109 H 80 96 H Respiratory Rate 18 21 18 Respiratory Effort / Characteristics Non-Labored Respiratory Depth Normal Blood Pressure 153/92 H 169/100 H Blood Pressure Mean 112 123 Pulse Oximetry 99 94 Sepsis Recent Fever Within 48 Hours No Sepsis New/Unexplained Change in Mental Status No Sepsis Action Taken by Nursing No Action Required 10/19/20 16:53 10/19/20 17:00 10/19/20 17:01 Temperature Temperature Source Pulse Rate 87 103 H 91 H Respiratory Rate 15 15 16 Respiratory Effort / Characteristics Respiratory Depth Blood Pressure 171/119 H 160/102 H Blood Pressure Mean 136 121 Pulse Oximetry 93 Sepsis Recent Fever Within 48 Hours Sepsis New/Unexplained Change in Mental Status Sepsis Action Taken by Nursing 10/19/20 17:30 10/19/20 17:31 Temperature Temperature Source Pulse Rate 67 78 Respiratory Rate 12 14 Respiratory Effort / Characteristics Respiratory Depth Blood Pressure 148/95 H Blood Pressure Mean 112 Pulse Oximetry Sepsis Recent Fever Within 48 Hours Sepsis New/Unexplained Change in Mental Status Sepsis Action Taken by Nursing Laboratory Data Attestation: I reviewed the patient's lab results. Result diagrams: 10/19/20 15:21 10/19/20 15:21 Lab Results 10/19/20 10/19/20 10/19/20 Range/Units 15: 15: 15: WBC 5.15 (4.8-10.8) K/uL RBC 2.97 L (4.7-6.1) M/uL Hgb 10.3 L (14.0-18.0) g/dL Hct 29.4 L (42-52) % MCV 99.0 (80-100) fL MCH 34.7 H (25-34) pg MCHC 35.0 (32-36) g/dL RDW Std Deviation 59.2 H (36.4-46.3) fL RDW Coeff of Ryan 16.4 H (11.5-14.5) % Plt Count 389 (130-400) K/uL MPV 8.8 (7.4-10.4) fL Immature Gran % (Auto) 0.4 % Neut % (Auto) 74.7 % Lymph % (Auto) 9.5 % Emanuel % (Auto) 15.0 % Eos % (Auto) 0.2 % Baso % (Auto) 0.2 % Neut # (Auto) 3.85 (1.4-6.5) K/uL Lymph # (Auto) 0.49 L (1.2-3.4) K/uL Emanuel # (Auto) 0.77 H (0.11-0.59) K/uL Eos # (Auto) 0.01 (0-0.5) K/uL Baso # (Auto) 0.01 (0-0.2) K/uL Immature Gran # (Auto) 0.02 (0.00-0.02) K/uL PT 11.0 (9.0-12.0) Seconds INR 1.1 (0.9-1.1) Sodium 136 (136-145) mmol/L Potassium 3.2 L (3.5-5.1) mmol/L Chloride 102 (98-107) mmol/L Carbon Dioxide 27 (21-32) mmol/L Anion Gap 7.0 (3-11) BUN 11 (7-18) mg/dl Creatinine 0.55 L (0.6-1.4) mg/dl Est Cr Clr Drug Dosing 145.6 ml/min Est GFR ( Amer) 130.4 Est GFR (Non-Af Amer) 112.5 BUN/Creatinine Ratio 20.6 H (10-20) Glucose 110 H (70-99) mg/dl Calcium 9.0 (8.5-10.1) mg/dl Phosphorus 2.6 (2.5-4.9) mg/dl Magnesium 1.4 L (1.8-2.4) mg/dl Total Bilirubin 0.4 (0.2-1) mg/dl Direct Bilirubin 0.1 (0-0.2) mg/dl AST 12 L (15-37) U/L ALT 20 (12-78) U/L Alkaline Phosphatase 101 (45-117) U/L Troponin I < 0.015 (0-0.045) ng/ml Total Protein 7.0 (6.4-8.2) gm/dl Albumin 3.4 (3.4-5.0) gm/dl Globulin 3.6 (2.5-4.0) gm/dl Albumin/Globulin Ratio 0.9 (0.9-2) Lipase 80 (73-393) U/L Blood Type Antibody Screen 10/19/20 Range/Units 15:21 WBC (4.8-10.8) K/uL RBC (4.7-6.1) M/uL Hgb (14.0-18.0) g/dL Hct (42-52) % MCV (80-100) fL MCH (25-34) pg MCHC (32-36) g/dL RDW Std Deviation (36.4-46.3) fL RDW Coeff of Ryan (11.5-14.5) % Plt Count (130-400) K/uL MPV (7.4-10.4) fL Immature Gran % (Auto) % Neut % (Auto) % Lymph % (Auto) % Emanuel % (Auto) % Eos % (Auto) % Baso % (Auto) % Neut # (Auto) (1.4-6.5) K/uL Lymph # (Auto) (1.2-3.4) K/uL Emanuel # (Auto) (0.11-0.59) K/uL Eos # (Auto) (0-0.5) K/uL Baso # (Auto) (0-0.2) K/uL Immature Gran # (Auto) (0.00-0.02) K/uL PT (9.0-12.0) Seconds INR (0.9-1.1) Sodium (136-145) mmol/L Potassium (3.5-5.1) mmol/L Chloride (98-107) mmol/L Carbon Dioxide (21-32) mmol/L Anion Gap (3-11) BUN (7-18) mg/dl Creatinine (0.6-1.4) mg/dl Est Cr Clr Drug Dosing ml/min Est GFR ( Amer) Est GFR (Non-Af Amer) BUN/Creatinine Ratio (10-20) Glucose (70-99) mg/dl Calcium (8.5-10.1) mg/dl Phosphorus (2.5-4.9) mg/dl Magnesium (1.8-2.4) mg/dl Total Bilirubin (0.2-1) mg/dl Direct Bilirubin (0-0.2) mg/dl AST (15-37) U/L ALT (12-78) U/L Alkaline Phosphatase (45-117) U/L Troponin I (0-0.045) ng/ml Total Protein (6.4-8.2) gm/dl Albumin (3.4-5.0) gm/dl Globulin (2.5-4.0) gm/dl Albumin/Globulin Ratio (0.9-2) Lipase (73-393) U/L Blood Type O Positive Antibody Screen NEGATIVE Administered Medications Cyclobenzaprine HCl (Cyclobenzaprine Hcl 10 Mg Tab) 10 mg PO HS [facility] Stop: 11/18/20 20:59 Last Admin: 10/19/20 20:51 Dose: 10 mg Documented by: [id number] Fentanyl (Fentanyl 100 Mcg/Hr Tdsy) 100 mcg TD Q72H [facility] Stop: 11/02/20 20:02 Last Admin: 10/19/20 20:41 Dose: 100 mcg Documented by: [id number] Gabapentin (Gabapentin 300 Mg Cap) 300 mg PO BID [facility] Stop: 11/18/20 20:59 Last Admin: 10/19/20 20:51 Dose: 300 mg Documented by: [id number] Hydromorphone HCl (Hydromorphone Inj 0.5 Mg/0.5 Ml Syr) 0.5 mg IV Q4H PRN PRN Reason: Pain Stop: 11/02/20 20:02 Last Admin: 10/20/20 01:26 Dose: 0.5 mg Documented by: [id number] Admin: 10/19/20 20:49 Dose: 0.5 mg Documented by: [id number] Heparin Sodium/Dextrose (Heparin Sodium/Dextrose) 25,000 units in 500 mls @ 27 mls/hr IV .[id number] [facility]; Protocol Stop: 11/18/20 18:22 Last Titration: 10/20/20 01:19 Dose: 1,350 units/hr, 27 mls/hr Documented by: [id number] Cosigned by: [id number] Admin: 10/19/20 18:48 Dose: 1,350 units/hr, 27 mls/hr Documented by: [id number] Cosigned by: [id number] Promethazine HCl 12.5 mg/ (Sodium Chloride) 50.5 mls @ 202 mls/hr IV Q6H PRN PRN Reason: Nausea And Vomiting Stop: 11/18/20 20:02 Last Infusion: 10/19/20 21:03 Dose: 0 mls/hr Documented by: [id number] Admin: 10/19/20 20:48 Dose: 202 mls/hr Documented by: [id number] Lactated Ringer's (Lr) 1,000 mls @ 125 mls/hr IV .Q8H [facility] Stop: 11/18/20 22:29 Last Admin: 10/19/20 23:15 Dose: 125 mls/hr Documented by: [id number] Latanoprost (Latanoprost 0.005% Op Soln 2.5 Ml Btl) 1 drops OPB HS [facility] Stop: 11/18/20 20:59 Last Admin: 10/19/20 20:50 Dose: 1 drops Documented by: [id number] Miscellaneous (Check Fentanyl Patch Placement) 1 ea N/A QS [facility] Stop: 11/19/20 00:00 Last Admin: 10/19/20 23:15 Dose: 1 ea Documented by: [id number] Miscellaneous (Fentanyl Patch Remove & Waste) 1 ea N/A TODAY@2001 [facility] Stop: 10/19/22 20:30 Last Admin: 10/19/20 20:41 Dose: 1 ea Documented by: [id number] Cosigned by: [id number] Discontinued Medications Diphenhydramine HCl (Diphenhydramine 50 Mg/Ml Vial) 25 mg IV NOW STA Stop: 10/19/20 15:01 Last Admin: 10/19/20 15:37 Dose: 25 mg Documented by: [id number] Heparin Sodium/Dextrose (Heparin Iv Adult Wt-Based Standard *No* Bolus Protocol) 1 ea IV Q15M [facility]; Protocol Stop: 11/18/20 18:07 Last Admin: 10/19/20 20:04 Dose: 1 ea Documented by: [id number] Admin: 10/19/20 20:04 Dose: 1 ea Documented by: [id number] Admin: 10/19/20 20:03 Dose: 1 ea Documented by: [id number] Famotidine (Pepcid 20mg Iv Push) 20 mg in 5 mls @ 2.5 mls/min IV NOW STA Stop: 10/19/20 15:01 Last Admin: 10/19/20 15:37 Dose: 2.5 mls/min Documented by: [id number] Sodium Chloride (Nss 1000ml) 1,000 mls @ 999 mls/hr IV .Q1H1M ONE Stop: 10/19/20 16:01 Last Infusion: 10/19/20 16:49 Dose: 0 mls/hr Documented by: [id number] Admin: 10/19/20 15:32 Dose: 999 mls/hr Documented by: [id number] Acetaminophen (Ofirmev) 1,000 mg in 100 mls @ 400 mls/hr IV NOW STA Stop: 10/19/20 15:15 Last Infusion: 10/19/20 15:57 Dose: 0 mls/hr Documented by: [id number] Admin: 10/19/20 15:37 Dose: 400 mls/hr Documented by: [id number] Magnesium Sulfate/Dextrose (Magnesium Sulfate / D5w) 1 gm in 100 mls @ 100 mls/hr IV Q1H [facility] Stop: 10/19/20 18:18 Last Infusion: 10/19/20 20:04 Dose: 0 mls/hr Documented by: [id number] Admin: 10/19/20 18:51 Dose: 100 mls/hr Documented by: [id number] Infusion: 10/19/20 18:49 Dose: 0 mls/hr Documented by: [id number] Admin: 10/19/20 16:52 Dose: 100 mls/hr Documented by: [id number] Potassium Chloride (K Bran / Wtr) 10 meq in 100 mls @ 100 mls/hr IV Q1H [facility] Stop: 10/19/20 18:29 Last Infusion: 10/19/20 20:04 Dose: 0 mls/hr Documented by: [id number] Admin: 10/19/20 18:49 Dose: 100 mls/hr Documented by: [id number] Infusion: 10/19/20 18:49 Dose: 0 mls/hr Documented by: [id number] Admin: 10/19/20 16:53 Dose: 100 mls/hr Documented by: [id number] Pantoprazole Sodium 40 mg/ (Syringe) 10 mls @ 5 mls/min IV QAM [facility] Stop: 11/18/20 20:02 Last Admin: 10/19/20 20:49 Dose: 5 mls/min Documented by: [id number] Ioversol (Optiray 350 500ml) 119 ml IV ONCE ONE Stop: 10/19/20 15:38 Last Admin: 10/19/20 15:38 Dose: 119 ml Documented by: [id number] Metoclopramide HCl (Metoclopramide Hcl Inj 5 Mg/Ml 2 Ml Vial) 10 mg IV NOW STA Stop: 10/19/20 15:01 Last Admin: 10/19/20 15:37 Dose: 10 mg Documented by: [id number] Morphine Sulfate (Morphine Sulfate 4 Mg/Ml 1 Ml Carp\\Vial) 4 mg IV NOW STA Stop: 10/19/20 16:31 Last Admin: 10/19/20 16:52 Dose: 4 mg Documented by: [id number] Imaging Data Radiologist's Impression: Chest X-Ray 10/19/20 14:59 XR chest 1V portable CLINICAL HISTORY: Atypical chest pain COMPARISON STUDY: 10/04/2020 FINDINGS: The cardiac and mediastinal contours remain stable. There is stable biapical opacities. Postsurgical changes are present within the cervical spine[ IMPRESSION: 1. Stable biapical opacities 2. No acute findings. No evidence of acute parenchymal consolidation ACT 112: Negative or not required by law. Electronically signed by: Dima Reyes M.D. 10/19/2020 3:15 PM Abdomen/Pelvis CT 10/19/20 15:02 CT abd pelvis IV con only CLINICAL HISTORY: Abdominal pain. Vomiting. Metastatic carcinoma. COMPARISON STUDY: PET CT scan dated 07/24/2020 TECHNIQUE: The patient was scanned in a dynamic helical fashion during intravenous administration of 119 cc of Optiray 320 A dose lowering technique was utilized adhering to the principles of ALARA. CT DOSE: FINDINGS: Lower chest: There are mild basilar atelectatic changes. There is a 5 mm subpleural left lower lobe pulmonary nodule Liver: There is focal fat adjacent to the falciform ligament. There is 2 small to characterize 5 mm hypodensity within the right hepatic lobe Gallbladder: Mildly distended. No calculi identified Spleen: Normal in size and attenuation. Pancreas: Unremarkable. Adrenal glands: Unremarkable. Kidneys: There is symmetric renal cortical enhancement. The kidneys are normal in size without hydronephrosis. Bowel: There are no transition zones indicate bowel obstruction. The appendix appears normal. There is no acute diverticulitis. Peritoneum: There is no intraperitoneal free air or abdominal ascites. Vasculature: The abdominal aorta is normal in course and caliber. Adenopathy: None. Pelvic viscera: The bladder, and pelvic viscera are unremarkable. Skeletal structures: There are scattered blastic sclerotic lesion suspicious for metastatic disease. These have enlarged when compared the preceding study. IMPRESSION: 1. Progressive skeletal metastatic disease 2. No evidence of bowel obstruction. No evidence of free air 3. Normal appendix 4. No evidence of acute diverticulitis 5. Indeterminate 5 mm hypodensity within the right hepatic lobe ACT 112: Negative or not required by law. Electronically signed by: Dima Reyes M.D. 10/19/2020 4:25 PM Chest CTA 10/19/20 15:02 CT ANGIOGRAM OF THE CHEST CLINICAL HISTORY: Shortness of breath, vomiting, metastatic carcinoma. Possible acute pulmonary embolism COMPARISON STUDY: 08/23/2020 TECHNIQUE: Following the IV administration of 119 mL of Optiray, CT angiogram of the thorax was performed from the thoracic inlet to the lung bases utilizing the pulmonary embolus protocol. Images are reviewed in the axial, sagittal, and coronal planes. IV contrast was administered without complication. MIP imaging was performed. A dose lowering technique was utilized adhering to the principles of ALARA. CT DOSE: 1847.74 mGy.cm FINDINGS: There is interval decrease in the size of the previously identified left hilar mass There was no evidence of thoracic aortic dilatation. There were no pulmonary artery filling defects to indicate acute pulmonary embolism. No pleural effusions are visualized. There is a persistent left apical mass with secondary underlying second rib destruction. There is evidence for interval rib healing when compared the prior study the left apical mass appears slightly smaller than on the prior study. The mass measures 37 mm in greatest diameter. There is severe underlying emphysema. There is right apical pleural thickening/scarring. There is stable 5 mm right middle lobe pulmonary nodule. There is a stable 6 mm right lower lobe pulmonary nodule there is a stable 2.5 mm right apical pulmonary nodule. There is a stable 4 mm left upper lobe pulmonary nodule. There is a stable subpleural 4 mm left lower lobe pulmonary nodule. There is a stable 3 mm right lower lobe pulmonary nodule. There is a stable subpleural 4 mm right middle lobe pulmonary nodule IMPRESSION: 1. No evidence of acute pulmonary embolism 2. Slight interval decrease in the size of the left apical pulmonary mass with partial interval healing of an underlying destructive left second rib lesion. 3. Interval decrease in the size of the left hilar mass 4. Severe pulmonary emphysema 5. Stable subcentimeter pulmonary nodules ACT 112: Negative or not required by law. Electronically signed by: Dima Reyes M.D. 10/19/2020 4:[address] 10/19/20 15:02 CT head/brain wo con CLINICAL HISTORY: headache, vomiting, metastatic ca COMPARISON STUDY: 09/22/2020 TECHNIQUE: Axial CT of the brain is performed from the vertex to the skull base. IV contrast was not administered for this examination. A dose lowering technique was utilized adhering to the principles of ALARA. CT DOSE: FINDINGS: No intra or extra-axial mass lesions are visualized. There is no CT evidence of acute cortical infarction. There is no evidence of midline shift. There is no acute hemorrhage. No calvarial fractures are visualized. There are patchy white matter hypodensities likely on a small vessel basis. There is no evidence of pathologic ventricular dilatation. There is no evidence of acute sinusitis IMPRESSION: No acute intracranial findings ACT 112: Negative or not required by law. Electronically signed by: Dima Reyes M.D. 10/19/2020 4:07 PM Discharge Plan Visit Data Chief Complaint: Vomiting Stated Complaint: HX CA,VOMITING ED Provider: Michael Almanza Discharge Problem: Metastatic disease, Vomiting, Hypomagnesemia, Hypokalemia Patient Disposition: Admitted As Inpatient Discharge Instructions Interventions: ED Discharge Assessment Last Done: 10/19/20 20:16 Discharge Problem: Metastatic disease Qualifiers: Area of secondary neoplastic involvement: unspecified site Qualified Code(s): C79.9 - Secondary malignant neoplasm of unspecified site Vomiting Qualifiers: Vomiting type: unspecified Vomiting Intractability: intractable Nausea presence: with nausea Qualified Code(s): R11.2 - Nausea with vomiting, unspecified
[2020-10-19] MEDS ORDERED: MoRPHine SULFATE 4 MG/ML 1 ML CARP\\VIAL IV STA (16:30)
[2020-10-19] MEDS: MAGNESIUM SULFATE / D5W 1 GM/100 ML BAG IV SCH ×2 (16:52→18:51)
[2020-10-19] MEDS: POTASSIUM CHLORIDE / WTR 10 MEQ/100 ML PLCT IV SCH ×2 (16:53→18:49)
--- NOTE | 2020-10-19 17:26 | History & Physical Report ---
Date of Service October 19, 2020 Assessment & Plan (1) Nausea & vomiting: From history suspect he has a degree of esophageal stenosis from the radiation. NPO - consider NG tube if multiple days without nutrition. Will consult gastroenterology for consideration of EGD. (2) Dysphagia: As above (3) Bilateral pulmonary embolism: Diagnosed 08/23/20 Unable to and not taking Eliquis due to nausea and vomiting. Previously failed Lovenox and given possible need for EGD will place patient on IV heparin standard without bolus. (4) GERD (gastroesophageal reflux disease): Switch oral omeprazole to famotidine 20 mg IV daily (5) Cancer associated pain: Continue 100 mcg fentanyl patch. Hold oral morphine is unable to take p.o. intake. Will switch to Dilaudid for breakthrough pain. Okay to take Flexeril at night if patient able (6) Pancoast tumor of left lung: (7) Radiculopathy affecting upper extremity: (8) COPD (chronic obstructive pulmonary disease): No acute exacerbation Albuterol nebulizer as needed (9) Glaucoma: Continue latanoprost 1 drop both eyes at bedtime Admission and Anticipated Discharge Date Admission Date: October 19, 2020 History of Present Illness Chief Complaint: Nausea and vomiting Primary Care Provider: Gerard Barnes Kris Butler is a 60-year-old male with Pancoast tumor currently on chemotherapy (prior radiation) who presents to the ER with nausea, vomiting severe for the last 5 days. He reports this is been going on intermittently since his second round of chemotherapy (5 weeks in total) however much worse over the last 5 days with very limited oral intake and not taking his regular medications as unable to keep them down. He denies any odynophagia but reports significant dysphagia with food/liquids come straight back prior to getting into his stomach. He has been receiving [facility] but his nutrition is extremely poor. He has now had 3 rounds of chemotherapy with the last one on September 30. The patient reports Dr Su wanted to admit him on Wednesday but he had a court date to adopt his grandchildren on Wednesday therefore was going to have a subsequent appointment this coming Wednesday for potential direct admission but felt too unwell to make it till then. He reports not currently on steroids. In the ER CT head/chest/abdomen/pelvis was relatively unremarkable for a cause for his nausea and vomiting. He was referred to medicine for admission and ongoing management of nausea and vomiting in the setting of metastatic disease. Allergies Allergy/AdvReac Type Severity Reaction Status Date / Time No Known Allergies Allergy Verified 10/19/20 15:39 Home Medications Medication Instructions Recorded Confirmed Type latanoprost 1 drp OPB HS 04/25/19 10/19/20 History omeprazole 20 mg PO QAM 04/25/19 10/19/20 History acetaminophen [Tylenol 8 Hour] 650 mg PO DIRECTED PRN 01/14/20 10/19/20 History cyclobenzaprine 10 mg PO HS 06/11/20 10/19/20 History gabapentin 300 mg capsule 300 mg PO BID cap 08/05/20 10/19/20 History dexamethasone 4 mg PO Q8 PRN 08/07/20 10/19/20 History apixaban [Eliquis] 5 mg PO BID #60 tab 08/24/20 10/19/20 Rx naloxone 4 mg/actuation nasal spray 4 mg INTRANASAL Q2M PRN 08/27/20 10/19/20 History morphine 15 mg immediate release 15 mg PO Q6H PRN #45 tab 10/14/20 10/19/20 Rx tablet fentanyl 100 mcg/hr transdermal 1 patch TRANSDERMAL Q72H #10 ea 10/17/20 10/19/20 Rx patch Past Med/Surg History Medical History Anxiety Bilateral pulmonary embolism Cervical disc disease prescribed prednisone taper x6 days- to be completed approximately 8/2 Chronic anticoagulation Consciousness alteration COPD (chronic obstructive pulmonary disease) stable DVT (deep venous thrombosis) GERD (gastroesophageal reflux disease) controlled Glaucoma History of migraine HTN (hypertension) Malignant neoplasm of upper lobe, left bronchus or lung Pancoast tumor Tobacco abuse Weakness of left upper extremity Surgical History History of eyelid surgery History of surgery mult benign tumors removed from neck History of surgery benign growth removed from RLE History of tooth extraction History of vocal cord polypectomy S/P cervical spinal fusion Family History Father Cancer Myocardial infarction Grandmother (Maternal) Cancer Other Asthma Diabetes Heart disease Social History Smoking Status: Current every day smoker Tobacco Type: Cigarettes Age Started Using Tobacco: 14; packs per day: 2; Cigarettes Per Day: 1.5 pack per day.; Second Hand Exposure: No; Do You Dip or Chew Tobacco: No; Tobacco Cessation Education Requested by Patient: No Hx Alcohol Use: No Hx Substance Use: No Preferred Language: Wolof Communication Ability: Effective Visual Impairment: No Limitations Umbrella Tipper Machine Required: No Beliefs That Will Affect Care: None marital status: Current Living Situation: Spouse Current Living Situation Comment: Lives with . current occupation: currently on short term disability from [employer] in [place] How many Children do You have: 2 Other Information That Helps Us Care for You: No other: currently raising adopted 4 grandchildren Feels Safe at Home: Yes Safety Concerns: Feels Safe At This Time Childhood Exposure to Second-Hand Smoke: Yes caffeine: Yes (coffee 3-4 pots/day) during the past year weight has: remained stable Dental Care, Regularly: No Physical Activity Frequency: Does not Exercise Physical Activity Frequency Comment: limited due to pain and limited rom of lue Seatbelt Use: other Sunscreen Use: No Assistive Devices: Denture - Upper Review of Systems Review of Systems: All systems reviewed & are unremarkable except as noted in HPI & below Physical Exam Constitutional: well developed; + not well nourished and no acute distress Eyes: + anicteric sclerae; normal pupil size ENMT: external ear and nose normal, oropharynx normal Neck: trachea midline, no thyromegaly Respiratory: normal respiratory effort, lungs clear to auscultation Cardiovascular: RRR, no murmur, no edema Gastrointestinal (Abdomen): normal bowel sounds, soft, nontender, no hepatosplenomegaly Musculoskeletal: no cyanosis or clubbing, extremities motor strength 5/5 Skin: no rashes, warm and dry Neurologic: moves all extremities and awake; not confused Psychiatric: A+Ox3, euthymic affect Genitourinary: no CVA tenderness Results & Data Results & Data ([facility]) Vital Signs (Past 12 Hours) Vital Signs Temp Pulse Resp BP Pulse Ox 10/19/20 17:01 91 H 16 10/19/20 17:00 103 H 15 160/102 H 93 10/19/20 16:53 87 15 171/119 H 10/19/20 16:30 96 H 18 94 10/19/20 16:23 80 21 169/100 H 10/19/20 14:35 36.7 C 109 H 18 153/[address] head/brain wo con IMPRESSION: No acute intracranial findings CT ANGIOGRAM OF THE CHEST IMPRESSION: 1. No evidence of acute pulmonary embolism 2. Slight interval decrease in the size of the left apical pulmonary mass with partial interval healing of an underlying destructive left second rib lesion. 3. Interval decrease in the size of the left hilar mass 4. Severe pulmonary emphysema 5. Stable subcentimeter pulmonary nodules CT abd pelvis IV con only IMPRESSION: 1. Progressive skeletal metastatic disease 2. No evidence of bowel obstruction. No evidence of free air 3. Normal appendix 4. No evidence of acute diverticulitis 5. Indeterminate 5 mm hypodensity within the right hepatic lobe Medications Administered ER medications given: Famotidine 20 mg IV Metoclopramide 10 mg IV Diphenhydramine 25 mg IV NSS 1 hour bolus Acetaminophen 1 g IV Magnesium sulfate 2 g IV Potassium chloride 10 M EQ x2 IV Morphine 4 mg IV ECG Indication: abdominal pain Rate (beats per minute): 79 Rhythm: normal sinus Findings: no acute ischemic change Comparison ECG Date: from (October 04, 2020) Change: no significant change Code Status & VTE Plan Code Status DNR/DNI per patient wishes VTE Prophylaxis Plan VTE Prophylaxis will be ordered: Yes PG Care Time/CCT Total # of Minutes Spent Total Time Spent with Patient: Total time spent is greater than 50% in coordination of care (as documented) at patient's floor/unit and/or counseling patient: Coding Level of Care Code 76276 Initial Inpt Care Lvl 3 Diagnoses Nausea & vomiting R11.2 Vomiting Intractability: intractable Vomiting type: unspecified Dysphagia R13.10 Dysphagia type: unspecified Bilateral pulmonary embolism I26.99 GERD (gastroesophageal reflux disease) K21.9 Cancer associated pain G89.3 Pancoast tumor of left lung C34.12 Radiculopathy affecting upper extremity M54.10 COPD (chronic obstructive pulmonary disease) J43.9 COPD type: emphysema Emphysema type: unspecified Glaucoma H40.9 Glaucoma type: unspecified Laterality: bilateral (1) Dysphagia Dysphagia type: unspecified Qualified Code(s): R13.10 - Dysphagia, unspecified (2) COPD (chronic obstructive pulmonary disease) COPD type: emphysema Emphysema type: unspecified Qualified Code(s): J43.9 - Emphysema, unspecified (3) Nausea & vomiting Vomiting Intractability: intractable Vomiting type: unspecified Qualified Code(s): R11.2 - Nausea with vomiting, unspecified (4) Glaucoma Glaucoma type: unspecified Laterality: bilateral Qualified Code(s): H40.9 - Unspecified glaucoma
[2020-10-19 18:36] LABS: Influenza A virus by PCR Negative (Neg); Influenza B virus by PCR Negative (Neg); RSV by PCR Negative (Neg); SARS CoV2 RNA(COVID-19) InHosp NEGATIVE (Negative)
[2020-10-19] MEDS: HEPARIN SODIUM/DEXTROSE 25,000 UNITS/500 ML BAG IV SCH (18:48)
[2020-10-19] MEDS ORDERED: PROCHLORPERAZINE 5 MG in SYRINGE 4 ML IV PRN (20:03)
[2020-10-19] MEDS: Heparin IV Adult Wt-Based Standard *NO* Bolus Protocol IV SCH ×2 (20:03→20:04)
[2020-10-19] MEDS ORDERED: PROMETHAZINE HCL 12.5 MG in SODIUM CHLORIDE 0.9% 50 ML IV PRN (20:03)
[2020-10-19] MEDS ORDERED: PANTOprazole 40 MG in SYRINGE 0 ML IV SCH (20:03)
[2020-10-19] MEDS ORDERED: ONDANSETRON INJ 2 MG/ML 2 ML VIAL IV PRN (20:03)
[2020-10-19] MEDS: fentaNYL 100 MCG/HR TDSY TD SCH (20:41)
[2020-10-19] MEDS: HYDROmorphone INJ 0.5 MG/0.5 ML SYR IV PRN (20:49)
[2020-10-19] MEDS: LATANOPROST 0.005% OP SOLN 2.5 ML BTL OPB SCH (20:50)
[2020-10-19] MEDS: GABAPENTIN 300 MG CAP PO SCH (20:51)
[2020-10-19] MEDS: CYCLOBENZAPRINE HCL 10 MG TAB PO SCH (20:51)
[2020-10-19] MEDS ORDERED: hydrALAZINE HCL 20 MG/ML VIAL IV PRN (22:21)
[2020-10-19] MEDS: LACTATED RINGER'S 1,000 ML IV SCH (23:15)
[2020-10-19] MEDS: CHECK fentaNYL PATCH PLACEMENT SCH (23:15)
[2020-10-19] MEDS ORDERED: ALBUTEROL 0.083% NEBU SOLN 3 ML VIAL NEB PRN (23:27)
[2020-10-20 01:12] LABS: Partial Thromboplastin Ratio 2.5
[2020-10-20 01:17] LABS: Partial Thromboplastin Time 65.2 Seconds (21.0-31.0)
[2020-10-20] MEDS: HYDROmorphone INJ 0.5 MG/0.5 ML SYR IV PRN ×3 (01:26→09:58)
[2020-10-20] MEDS ORDERED: NALOXONE HCL 0.4 MG/1 ML VIAL/CARP IV PRN (03:10)
[2020-10-20] MEDS: MoRPHine SULFATE IR 15 MG TAB (IMMEDIATE RELEASE) PO PRN ×2 (03:20→18:12)
[2020-10-20] MEDS: LACTATED RINGER'S 1,000 ML IV SCH ×3 (05:14→20:46)
[2020-10-20 06:26] LABS: Appearance Urine Clear (Clear); Bacteria Urine Automated Negative (Negative); Bilirubin Urine Negative (Negative); Blood Urine Trace (Negative); Cast Urine Automated 0 /lpf (0-5); Color Urine Yellow; Glucose Urine UA Negative (Negative); Ketones Urine Negative (Negative); Leukocyte Esterase Urine Negative (Negative); Nitrite Urine Negative (Negative); Protein Urine Negative (Negative); RBC Urine Automated 0-4 /hpf (0-4); Urobilinogen Urine Negative (Negative); pH Urine 7.5 (4.5-7.5)
[2020-10-20 06:34] LABS: Basophils # (auto) 0.02 K/uL (0-0.2); Basophils % (auto) 0.4 %; Eosinophils # (auto) 0.03 K/uL (0-0.5); Eosinophils % (auto) 0.6 %; Hematocrit (blood only) 28.3 % (42-52); Hemoglobin 9.8 g/dL (14.0-18.0); Immature Granulocytes # (auto) 0.02 K/uL (0.00-0.02); Immature Granulocytes % (auto) 0.4 %; Lymphocytes # (auto) 0.93 K/uL (1.2-3.4); Lymphocytes % (auto) 18.6 %; Mean Corpuscular Hemoglobin 34.3 pg (25-34); Mean Corpuscular Hgb Conc 34.6 g/dL (32-36); Mean Platelet Volume 8.8 fL (7.4-10.4); Monocytes # (auto) 0.58 K/uL (0.11-0.59); Monocytes % (auto) 11.6 %; Neutrophils # (auto) 3.42 K/uL (1.4-6.5); Neutrophils % (auto) 68.4 %; Platelet Count 395 K/uL (130-400); RDW Coefficient of Variation 16.4 % (11.5-14.5); RDW Standard Deviation 59.5 fL (36.4-46.3); Red Blood Count 2.86 M/uL (4.7-6.1)
[2020-10-20 06:51] LABS: BUN Creatinine Ratio 12.7 (10-20); Calcium 8.6 mg/dl (8.5-10.1); Creatinine Clr Calc Pharmacy 153.6 ml/min; Est GFR (African American) 133.4; Est GFR (Non-African American) 115.1
[2020-10-20] MEDS: CHECK fentaNYL PATCH PLACEMENT SCH ×3 (07:29→23:21)
[2020-10-20] MEDS: FAMOTIDINE 20 MG in SYRINGE 3 ML IV SCH (07:29)
[2020-10-20] MEDS: GABAPENTIN 300 MG CAP PO SCH ×2 (07:30→19:26)
--- NOTE | 2020-10-20 09:31 | Gastrointestinal Consultation ---
Date of Consultation October 20, 2020 Assessment & Plan (1) Vomiting: Patient with history of lung cancer on chemotherapy with prior radiation therapy. Given the nausea and intolerance of p.o. further evaluation is certainly warranted. Unfortunately the patient is on anticoagulation due to recent pulmonary emboli. Thus I would recommend discontinuation of the anticoagulation, and upper GI series prior to upper endoscopy and a trial of Emend. Recommendations Emend intravenously today Please hold anticoagulation for anticipated upper endoscopy in 2 to 3 days Upper GI series to be arranged History of Present Illness Reason for Consultation: Nausea Attending Physician: Javier Wilson, History of Present Illness The patient is a 60-year-old male with a history of metastatic lung cancer who presented to the emergency room yesterday evening with worsening tremors. He has been followed by his outpatient oncologist since his diagnosis several months ago and is received ongoing chemotherapy and prior radiation therapy. Gastroenterology is consulted due to the nausea in addition to a question of difficulty with swallowing. The patient is somewhat of a poor historian and not able to fully describe his symptoms to me. He notes that he has been suffering from inability to eat due to persistent postprandial nausea over the last 6 to 8 weeks. The patient does not recall if he is ever had an upper endoscopy nor colonoscopy Allergies Allergy/AdvReac Type Severity Reaction Status Date / Time No Known Allergies Allergy Verified 10/19/20 15:39 Home Medications Medication Instructions Recorded Confirmed Type latanoprost 1 drp OPB HS 04/25/19 10/19/20 History omeprazole 20 mg PO QAM 04/25/19 10/19/20 History acetaminophen [Tylenol 8 Hour] 650 mg PO DIRECTED PRN 01/14/20 10/19/20 History cyclobenzaprine 10 mg PO HS 06/11/20 10/19/20 History gabapentin 300 mg capsule 300 mg PO BID cap 08/05/20 10/19/20 History dexamethasone 4 mg PO Q8 PRN 08/07/20 10/19/20 History apixaban [Eliquis] 5 mg PO BID #60 tab 08/24/20 10/19/20 Rx naloxone 4 mg/actuation nasal spray 4 mg INTRANASAL Q2M PRN 08/27/20 10/19/20 History morphine 15 mg immediate release 15 mg PO Q6H PRN #45 tab 10/14/20 10/19/20 Rx tablet fentanyl 100 mcg/hr transdermal 1 patch TRANSDERMAL Q72H #10 ea 10/17/20 10/19/20 Rx patch Patient History Medical History Anxiety Bilateral pulmonary embolism Cervical disc disease prescribed prednisone taper x6 days- to be completed approximately 8/ Chronic anticoagulation Consciousness alteration COPD (chronic obstructive pulmonary disease) stable DVT (deep venous thrombosis) GERD (gastroesophageal reflux disease) controlled Glaucoma History of migraine HTN (hypertension) Malignant neoplasm of upper lobe, left bronchus or lung Pancoast tumor Tobacco abuse Weakness of left upper extremity Surgical History History of eyelid surgery History of surgery mult benign tumors removed from neck History of surgery benign growth removed from RLE History of tooth extraction History of vocal cord polypectomy S/P cervical spinal fusion Family History Father Cancer Myocardial infarction Grandmother (Maternal) Cancer Other Asthma Diabetes Heart disease Social History Smoking Status: Current every day smoker Tobacco Type: Cigarettes Age Started Using Tobacco: 14; packs per day: 2; Cigarettes Per Day: 1.5 pack per day.; Second Hand Exposure: No; Do You Dip or Chew Tobacco: No; Tobacco Cessation Education Requested by Patient: No Hx Alcohol Use: No Hx Substance Use: No Preferred Language: Kazakh Communication Ability: Effective Visual Impairment: No Limitations Toolroom Helper Required: No Beliefs That Will Affect Care: None marital status: Current Living Situation: Spouse Current Living Situation Comment: Lives with . current occupation: currently on short term disability from [employer] in [place] How many Children do You have: 2 Other Information That Helps Us Care for You: No other: currently raising adopted 4 grandchildren Feels Safe at Home: Yes Safety Concerns: Feels Safe At This Time Childhood Exposure to Second-Hand Smoke: Yes caffeine: Yes (coffee 3-4 pots/day) during the past year weight has: remained stable Dental Care, Regularly: No Physical Activity Frequency: Does not Exercise Physical Activity Frequency Comment: limited due to pain and limited rom of lue Seatbelt Use: other Sunscreen Use: No Assistive Devices: Denture - Upper Review of Systems Constitutional: no fever, no sweats and no malaise Eyes: no diplopia Respiratory: + dyspnea; no cough, no change in sputum and no hemoptysis Cardiovascular: no chest pain and no chest pain with activity Gastrointestinal: + early satiety, + nausea and + vomiting; no abdominal pain, no belching, no bloating and no coffee ground emesis Genitourinary: no urinary frequency Musculoskeletal: no radicular pain Neurologic: no falls and no paralysis Psychiatric: no hopelessness Endocrine: no polydipsia Hematologic / Lymphatic: + easy bleeding and + coagulopathy Physical Exam Constitutional: + ill appearing and + thin; no acute distress Neck: trachea midline, no thyromegaly Respiratory: no respiratory distress and no labored breathing Auscultation: + wheezes Cardiovascular: Rate/Rhythm: + tachycardic Heart Sounds: + murmur Gastrointestinal (Abdomen): Inspection/Auscultation: abdomen not distended Percussion/Palpation: abdomen nontender, no guarding and + abdomen not soft Skin: no rashes, warm and dry Neurologic: awake; not confused and not obtunded Results & Data ([facility]) Vital Signs (Past 12 Hours) Vital Signs Temp Pulse Resp BP BP Pulse Ox 10/20/20 07:57 36.8 C 118 H 18 160/100 H 96 10/19/20 22:28 37.2 C 89 15 157/90 H 94 Laboratory Results Laboratory Results - last 24 hr 10/19/20 10/19/20 10/19/20 15:21 15:21 15:21 WBC 5.15 RBC 2.97 L Hgb 10.3 L Hct 29.4 L MCV 99.0 MCH 34.7 H MCHC 35.0 RDW Std Deviation 59.2 H RDW Coeff of Ryan 16.4 H Plt Count 389 MPV 8.8 Immature Gran % (Auto) 0.4 Neut % (Auto) 74.7 Lymph % (Auto) 9.5 [place] % (Auto) 15.0 Eos % (Auto) 0.2 Baso % (Auto) 0.2 Neut # (Auto) 3.85 Lymph # (Auto) 0.49 L [place] # (Auto) 0.77 H Eos # (Auto) 0.01 Baso # (Auto) 0.01 Immature Gran # (Auto) 0.02 PT 11.0 INR 1.1 APTT PTT Ratio Sodium 136 Potassium 3.2 L Chloride 102 Carbon Dioxide 27 Anion Gap 7.0 BUN 11 Creatinine 0.55 L Est Cr Clr Drug Dosing 145.6 Est GFR ( Amer) 130.4 Est GFR (Non-Af Amer) 112.5 BUN/Creatinine Ratio 20.6 H Glucose 110 H Calcium 9.0 Phosphorus 2.6 Magnesium 1.4 L Total Bilirubin 0.4 Direct Bilirubin 0.1 AST 12 L ALT 20 Alkaline Phosphatase 101 Troponin I < 0.015 Total Protein 7.0 Albumin 3.4 Globulin 3.6 Albumin/Globulin Ratio 0.9 Lipase 80 Urine Color Urine Appearance Urine pH Ur Specific Ehrhardt Urine Protein Urine Glucose (UA) Urine Ketones Urine Blood Urine Nitrite Urine Bilirubin Urine Urobilinogen Ur Leukocyte Esterase Urine WBC (Auto) Urine RBC (Auto) U Hyaline Cast (Auto) U Epithel Cells (Auto) Urine Bacteria (Auto) COVID-19 Eval Order SARS-CoV-2 (PCR) Influenza Type A (PCR) Influenza Type B (PCR) RSV (RT-PCR) Blood Type Antibody Screen 10/19/20 10/19/20 10/19/20 15:21 17:45 17:45 WBC RBC Hgb Hct MCV MCH MCHC RDW Std Deviation RDW Coeff of Ryan Plt Count MPV Immature Gran % (Auto) Neut % (Auto) Lymph % (Auto) [place] % (Auto) Eos % (Auto) Baso % (Auto) Neut # (Auto) Lymph # (Auto) [place] # (Auto) Eos # (Auto) Baso # (Auto) Immature Gran # (Auto) PT INR APTT PTT Ratio Sodium Potassium Chloride Carbon Dioxide Anion Gap BUN Creatinine Est Cr Clr Drug Dosing Est GFR ( Amer) Est GFR (Non-Af Amer) BUN/Creatinine Ratio Glucose Calcium Phosphorus Magnesium Total Bilirubin Direct Bilirubin AST ALT Alkaline Phosphatase Troponin I Total Protein Albumin Globulin Albumin/Globulin Ratio Lipase Urine Color Urine Appearance Urine pH Ur Specific Ehrhardt Urine Protein Urine Glucose (UA) Urine Ketones Urine Blood Urine Nitrite Urine Bilirubin Urine Urobilinogen Ur Leukocyte Esterase Urine WBC (Auto) Urine RBC (Auto) U Hyaline Cast (Auto) U Epithel Cells (Auto) Urine Bacteria (Auto) COVID-19 Eval Order CovFluRsv at [facility] SARS-CoV-2 (PCR) NEGATIVE Influenza Type A (PCR) Negative Influenza Type B (PCR) Negative RSV (RT-PCR) Negative Blood Type O Positive Antibody Screen NEGATIVE 10/20/20 10/20/20 10/20/20 00:38 06:12 06:20 WBC 5.00 RBC 2.86 L Hgb 9.8 L Hct 28.3 L MCV 99.0 MCH 34.3 H MCHC 34.6 RDW Std Deviation 59.5 H RDW Coeff of Ryan 16.4 H Plt Count 395 MPV 8.8 Immature Gran % (Auto) 0.4 Neut % (Auto) 68.4 Lymph % (Auto) 18.6 [place] % (Auto) 11.6 Eos % (Auto) 0.6 Baso % (Auto) 0.4 Neut # (Auto) 3.42 Lymph # (Auto) 0.93 L [place] # (Auto) 0.58 Eos # (Auto) 0.03 Baso # (Auto) 0.02 Immature Gran # (Auto) 0.02 PT INR APTT 65.2 H* PTT Ratio 2.5 Sodium Potassium Chloride Carbon Dioxide Anion Gap BUN Creatinine Est Cr Clr Drug Dosing Est GFR ( Amer) Est GFR (Non-Af Amer) BUN/Creatinine Ratio Glucose Calcium Phosphorus Magnesium Total Bilirubin Direct Bilirubin AST ALT Alkaline Phosphatase Troponin I Total Protein Albumin Globulin Albumin/Globulin Ratio Lipase Urine Color Yellow Urine Appearance Clear Urine pH 7.5 Ur Specific Ehrhardt 1.030 Urine Protein Negative Urine Glucose (UA) Negative Urine Ketones Negative Urine Blood Trace H Urine Nitrite Negative Urine Bilirubin Negative Urine Urobilinogen Negative Ur Leukocyte Esterase Negative Urine WBC (Auto) 1-5 Urine RBC (Auto) 0-4 U Hyaline Cast (Auto) 0 U Epithel Cells (Auto) 5-10 H Urine Bacteria (Auto) Negative COVID-19 Eval Order SARS-CoV-2 (PCR) Influenza Type A (PCR) Influenza Type B (PCR) RSV (RT-PCR) Blood Type Antibody Screen 10/20/20 06:20 WBC RBC Hgb Hct MCV MCH MCHC RDW Std Deviation RDW Coeff of Ryan Plt Count MPV Immature Gran % (Auto) Neut % (Auto) Lymph % (Auto) [place] % (Auto) Eos % (Auto) Baso % (Auto) Neut # (Auto) Lymph # (Auto) [place] # (Auto) Eos # (Auto) Baso # (Auto) Immature Gran # (Auto) PT INR APTT PTT Ratio Sodium 134 L Potassium 3.0 L Chloride 101 Carbon Dioxide 27 Anion Gap 6.0 BUN 7 Creatinine 0.52 L Est Cr Clr Drug Dosing 153.6 Est GFR ( Amer) 133.4 Est GFR (Non-Af Amer) 115.1 BUN/Creatinine Ratio 12.7 Glucose 111 H Calcium 8.6 Phosphorus Magnesium Total Bilirubin Direct Bilirubin AST ALT Alkaline Phosphatase Troponin I Total Protein Albumin Globulin Albumin/Globulin Ratio Lipase Urine Color Urine Appearance Urine pH Ur Specific Ehrhardt Urine Protein Urine Glucose (UA) Urine Ketones Urine Blood Urine Nitrite Urine Bilirubin Urine Urobilinogen Ur Leukocyte Esterase Urine WBC (Auto) Urine RBC (Auto) U Hyaline Cast (Auto) U Epithel Cells (Auto) Urine Bacteria (Auto) COVID-19 Eval Order SARS-CoV-2 (PCR) Influenza Type A (PCR) Influenza Type B (PCR) RSV (RT-PCR) Blood Type Antibody Screen Diagnostic Findings CT abd pelvis IV con only CLINICAL HISTORY: Abdominal pain. Vomiting. Metastatic carcinoma. COMPARISON STUDY: PET CT scan dated 07/24/2020 TECHNIQUE: The patient was scanned in a dynamic helical fashion during intravenous administration of 119 cc of Optiray 320 A dose lowering technique was utilized adhering to the principles of ALARA. CT DOSE: FINDINGS: Lower chest: There are mild basilar atelectatic changes. There is a 5 mm sub pleural left lower lobe pulmonary nodule Liver: There is focal fat adjacent to the falciform ligament. There is 2 small to characterize 5 mm hypodensity within the right hepatic lobe Gallbladder: Mildly distended. No calculi identified Spleen: Normal in size and attenuation. Pancreas: Unremarkable. Adrenal glands: Unremarkable. Kidneys: There is symmetric renal cortical enhancement. The kidneys are normal in size without hydronephrosis. Bowel: There are no transition zones indicate bowel obstruction. The appendix appears normal. There is no acute diverticulitis. Peritoneum: There is no intraperitoneal free air or abdominal ascites. Vasculature: The abdominal aorta is normal in course and caliber. Adenopathy: None. Pelvic viscera: The bladder, and pelvic viscera are unremarkable. Skeletal structures: There are scattered blastic sclerotic lesion suspicious for metastatic disease. These have enlarged when compared the preceding study. IMPRESSION: 1. Progressive skeletal metastatic disease 2. No evidence of bowel obstruction. No evidence of free air 3. Normal appendix 4. No evidence of acute diverticulitis 5. Indeterminate 5 mm hypodensity within the right hepatic lob (1) Vomiting Nausea presence: with nausea Vomiting Intractability: intractable Vomiting type: unspecified Qualified Code(s): R11.2 - Nausea with vomiting, unspecified
[2020-10-20] MEDS ORDERED: FOSAPREPITANT DIMEGLUMINE 150 MG in SODIUM CHLORIDE 0.9% 145 ML IV ONE (10:00)
[2020-10-20] MEDS: HEPARIN SODIUM/DEXTROSE 25,000 UNITS/500 ML BAG IV SCH (12:42)
--- NOTE | 2020-10-20 12:45 | Hospitalist Progress Note ---
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 We will advance to clear liquid diet, monitor for tolerance. Appreciate GI consultation, I suspect patient has not been taking Eliquis regularly as his INR was normal on arrival. I will confirm with patient. GI series ordered. Agree that he would likely need EGD on this admission. Replete potassium IV. (2) Dysphagia: As above (3) Bilateral pulmonary embolism: Diagnosed 08/23/20 Continue with heparin drip for now. Can be held 4 hours prior to any planned procedure. (4) GERD (gastroesophageal reflux disease): Switch oral omeprazole to famotidine 20 mg IV daily (5) Cancer associated pain: Continue 100 mcg fentanyl patch. Hold oral morphine is unable to take p.o. intake. Will switch to Dilaudid for breakthrough pain. Okay to take Flexeril at night if patient able (6) Pancoast tumor of left lung: (7) Radiculopathy affecting upper extremity: (8) COPD (chronic obstructive pulmonary disease): No acute exacerbation Albuterol nebulizer as needed (9) Glaucoma: Continue latanoprost 1 drop both eyes at bedtime Admission and Anticipated Discharge Date Admission Date: October 19, 2020 Subjective Patient seen and examined. He tells me he is feeling a little better, has been n.p.o. but is tolerating ice chips. Denies any chest pain or shortness of breath. Patient has been afebrile. Told me it was having difficulty with solid foods, liquids, and medication for the past 5 months prior to coming to the hospital. I did note that his renal function was normal on arrival, likely was not terribly dehydrated, at least not by labs. Patient is willing to try clear liquid diet. Physical Exam Constitutional: WD/WN, vitals as above + cachectic; no acute distress Neck: trachea midline, no thyromegaly Respiratory: normal respiratory effort, lungs clear to auscultation A uscultation: lungs clear to auscultation bilaterally Cardiovascular: RRR, no murmur, no edema Rate/Rhythm: regular rate No chest wall pain or tenderness Gastrointestinal (Abdomen): normal bowel sounds, soft, nontender, no hepatosplenomegaly Musculoskeletal: no cyanosis or clubbing, extremities motor strength 5/5 Neurologic: patellar DTR's 2+ bilat, sensation intact Results & Data Results & Data ([facility]) Vital Signs (Past 12 Hours) Vital Signs Temp Pulse Resp BP Pulse Ox 10/20/20 11:21 168/78 H 10/20/20 07:57 36.8 C 118 H 18 160/100 H 96 PG Care Time/CCT Total # of Minutes Spent Total Time Spent with Patient: Total time spent is greater than 50% in coordination of care (as documented) at patient's floor/unit and/or counseling patient: Coding Level of Care Code 60678 Subseq Hosp Care Lvl 2 Diagnoses Nausea & vomiting R11.2 Vomiting Intractability: intractable Vomiting type: unspecified Dysphagia R13.10 Dysphagia type: unspecified Bilateral pulmonary embolism I26.99 GERD (gastroesophageal reflux disease) K21.9 Cancer associated pain G89.3 Pancoast tumor of left lung C34.12 Radiculopathy affecting upper extremity M54.10 COPD (chronic obstructive pulmonary disease) J43.9 COPD type: emphysema Emphysema type: unspecified Glaucoma H40.9 Glaucoma type: unspecified Laterality: bilateral (1) Nausea & vomiting Vomiting Intractability: intractable Vomiting type: unspecified Qualified Code(s): R11.2 - Nausea with vomiting, unspecified (2) Dysphagia Dysphagia type: unspecified Qualified Code(s): R13.10 - Dysphagia, unspecified (3) COPD (chronic obstructive pulmonary disease) COPD type: emphysema Emphysema type: unspecified Qualified Code(s): J43.9 - Emphysema, unspecified (4) Glaucoma Glaucoma type: unspecified Laterality: bilateral Qualified Code(s): H40.9 - Unspecified glaucoma
[2020-10-20] MEDS: POTASSIUM CHLORIDE / WTR 10 MEQ/100 ML PLCT IV SCH ×4 (13:21→16:55)
[2020-10-20] MEDS: CYCLOBENZAPRINE HCL 10 MG TAB PO SCH (19:26)
[2020-10-20] MEDS: LATANOPROST 0.005% OP SOLN 2.5 ML BTL OPB SCH (19:26)
--- NOTE | 2020-10-20 21:44 | Electrocardiogram Report ---
Test Reason : Blood Pressure : / mmHG Vent. Rate : 079 BPM Atrial Rate : 079 BPM P-R Int : 178 ms QRS Dur : 098 ms QT Int : 396 ms P-R-T Axes : 050 -03 045 degrees QTc Int : 454 ms Normal sinus rhythm Normal ECG When compared with ECG of 04-OCT-2020 22:19, No significant change was found Confirmed by Marbin Echevarria ([id number]) on 10/20/2020 9:44:19 PM Referred By: REFERRED SELF Confirmed By:Marbin Echevarria
[2020-10-21] MEDS ORDERED: ACETAMINOPHEN 325 MG TAB ONE (04:26)
[2020-10-21] MEDS: HEPARIN SODIUM/DEXTROSE 25,000 UNITS/500 ML BAG IV SCH ×2 (05:25→08:55)
[2020-10-21] MEDS: LACTATED RINGER'S 1,000 ML IV SCH ×2 (05:28→14:35)
[2020-10-21 06:23] LABS: Basophils # (auto) 0.03 K/uL (0-0.2); Basophils % (auto) 0.5 %; Eosinophils # (auto) 0.06 K/uL (0-0.5); Hematocrit (blood only) 28.4 % (42-52); Hemoglobin 9.5 g/dL (14.0-18.0); Immature Granulocytes # (auto) 0.02 K/uL (0.00-0.02); Immature Granulocytes % (auto) 0.3 %; Lymphocytes # (auto) 0.76 K/uL (1.2-3.4); Lymphocytes % (auto) 13.1 %; Mean Corpuscular Hemoglobin 33.5 pg (25-34); Mean Corpuscular Hgb Conc 33.5 g/dL (32-36); Mean Platelet Volume 8.9 fL (7.4-10.4); Monocytes # (auto) 0.78 K/uL (0.11-0.59); Monocytes % (auto) 13.4 %; Neutrophils # (auto) 4.16 K/uL (1.4-6.5); Neutrophils % (auto) 71.7 %; Platelet Count 415 K/uL (130-400); RDW Coefficient of Variation 16.4 % (11.5-14.5); RDW Standard Deviation 59.3 fL (36.4-46.3); Red Blood Count 2.84 M/uL (4.7-6.1); White Blood Count 5.81 K/uL (4.8-10.8)
[2020-10-21 06:46] LABS: Partial Thromboplastin Ratio 4.9
[2020-10-21 06:49] LABS: Partial Thromboplastin Time 129.8 Seconds (21.0-31.0)
[2020-10-21 06:55] LABS: BUN Creatinine Ratio 5.5 (10-20); Creatinine Clr Calc Pharmacy 133.1 ml/min; Est GFR (African American) 125.8; Est GFR (Non-African American) 108.5; Magnesium 1.3 mg/dl (1.8-2.4); Potassium 3.1 mmol/L (3.5-5.1)
[2020-10-21 07:03] LABS: Phosphorus 3.3 mg/dl (2.5-4.9)
[2020-10-21] MEDS: GABAPENTIN 300 MG CAP PO SCH ×2 (08:46→21:49)
[2020-10-21] MEDS: CHECK fentaNYL PATCH PLACEMENT SCH ×3 (08:47→23:33)
[2020-10-21] MEDS: FAMOTIDINE 20 MG in SYRINGE 3 ML IV SCH (08:51)
[2020-10-21] MEDS: ACETAMINOPHEN 325 MG TAB PO PRN ×2 (08:59→19:09)
[2020-10-21 09:29] LABS: iSTAT Creatinine 0.4 mg/dl (0.6-1.3); iSTAT Hemoglobin 10.5 g/dl (14.0-18.0); iSTAT Ionized Calcium 1.2 mmol/l (1.12-1.32); iSTAT Potassium 3.1 mmol/L (3.3-5.0)
[2020-10-21] MEDS: MAGNESIUM SULFATE / D5W 1 GM/100 ML BAG IV SCH ×3 (10:17→14:34)
[2020-10-21] MEDS: POTASSIUM CHLORIDE / WTR 10 MEQ/100 ML PLCT IV SCH ×4 (10:17→14:25)
[2020-10-21 13:13] LABS: Partial Thromboplastin Ratio 2.5
[2020-10-21 13:16] LABS: Partial Thromboplastin Time 64.9 Seconds (21.0-31.0)
--- NOTE | 2020-10-21 13:25 | Hospitalist Progress Note ---
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 - Presently on full liquids diet with continued mild symptoms. - Plan for barium swallow today with GI. - GI planning to determine timing/need for EGD. (2) Dysphagia: As above (3) Bilateral pulmonary embolism: Diagnosed 08/23/20. - Continue with heparin drip for now. Can be held 4 hours prior to any planned procedure. (4) Pancoast tumor of left lung: - Continue 100 mcg fentanyl patch. - Hold oral morphine is unable to reliable take p.o. intake. - Continue Dilaudid for breakthrough pain. - Okay to take Flexeril at night if patient able (5) COPD (chronic obstructive pulmonary disease): No acute exacerbation. - Albuterol nebulizer as needed (6) GERD (gastroesophageal reflux disease): - Switched oral omeprazole to famotidine 20 mg IV daily. (7) Glaucoma: - Continue latanoprost 1 drop both eyes at bedtime Admission and Anticipated Discharge Date Admission Date: October 19, 2020 Subjective No major change in his nause and vomiting. He vomited this morning. Is not particularly better/worse with solid food vs. liquids. Reports no fevers/chills, chest pain, shortness of breath. Physical Exam Constitutional: WD/WN, vitals as above Eyes: EOM intact bilaterally; no conjunctival abnormality ENMT: external ear and nose normal, oropharynx normal Neck: trachea midline, no thyromegaly normal visual inspection Respiratory: normal respiratory effort, lungs clear to auscultation no respiratory distress Cardiovascular: RRR, no murmur, no edema Gastrointestinal (Abdomen): Inspection/Auscultation: abdomen normal to inspection; abdomen not distended Percussion/Palpation: abdomen soft; abdomen nontender, no guarding and abdomen not rigid Musculoskeletal: no cyanosis or clubbing, extremities motor strength 5/5 Skin: no rashes, warm and dry Neurologic: moves all extremities and awake Psychiatric: Orientation: alert, oriented to person and cooperative Results & Data Results & Data ([facility]) Vital Signs (Past 12 Hours) Vital Signs Temp Pulse Resp BP Pulse Ox 10/21/20 07:31 36.6 C 71 17 145/82 H 94 PG Care Time/CCT Total # of Minutes Spent Total Time Spent with Patient: Total time spent is greater than 50% in coordination of care (as documented) at patient's floor/unit and/or counseling patient: Coding Level of Care Code 63802 Subseq Hosp Care Lvl 2 Diagnoses Nausea & vomiting R11.2 Vomiting Intractability: intractable Vomiting type: unspecified Dysphagia R13.10 Dysphagia type: unspecified Bilateral pulmonary embolism I26.99 Pancoast tumor of left lung C34.12 COPD (chronic obstructive pulmonary disease) J43.9 COPD type: emphysema Emphysema type: unspecified GERD (gastroesophageal reflux disease) K21.9 Glaucoma H40.9 Glaucoma type: unspecified Laterality: bilateral (1) Nausea & vomiting Vomiting Intractability: intractable Vomiting type: unspecified Qualified Code(s): R11.2 - Nausea with vomiting, unspecified (2) Dysphagia Dysphagia type: unspecified Qualified Code(s): R13.10 - Dysphagia, unspecified (3) COPD (chronic obstructive pulmonary disease) COPD type: emphysema Emphysema type: unspecified Qualified Code(s): J43.9 - Emphysema, unspecified (4) Glaucoma Glaucoma type: unspecified Laterality: bilateral Qualified Code(s): H40.9 - Unspecified glaucoma
--- NOTE | 2020-10-21 14:15 | Fluoroscopy Report ---
[place] GI series CLINICAL HISTORY: Postprandial nausea, on chemotherapy COMPARISON STUDY: None. FLUOROSCOPY TIME: 1.2 minutes. FLUOROSCOPIC IMAGES: 21 FINDINGS: Mild esophageal dysmotility was noted. No esophageal mass or stricture was identified. Inci dental note was made of an anterior cervical spine fusion. No gastroesophageal reflux was elicited. N o hiatal hernia was identified. Gastric fold pattern was normal. Duodenal fold pattern was normal. Th e caliber of the opacified jejunum was normal. IMPRESSION: 1. Mild esophageal dysmotility. 2. Otherwise, unremarkable double contrast upper GI series. ACT 112: Negative or not required by law. Electronically signed by: Vinh Camp M.D. 10/21/2020 2:14 PM
[2020-10-21] MEDS: LATANOPROST 0.005% OP SOLN 2.5 ML BTL OPB SCH (21:47)
[2020-10-21] MEDS: CYCLOBENZAPRINE HCL 10 MG TAB PO SCH (21:48)
[2020-10-22] MEDS: LACTATED RINGER'S 1,000 ML IV SCH ×2 (01:53→16:45)
[2020-10-22] MEDS: ACETAMINOPHEN 325 MG TAB PO PRN ×2 (04:56→11:10)
[2020-10-22] MEDS: HEPARIN SODIUM/DEXTROSE 25,000 UNITS/500 ML BAG IV SCH (06:01)
[2020-10-22] MEDS: CHECK fentaNYL PATCH PLACEMENT SCH ×2 (07:15→16:43)
[2020-10-22 07:17] LABS: Hematocrit (blood only) 27.3 % (42-52); Hemoglobin 9.2 g/dL (14.0-18.0); Mean Corpuscular Hemoglobin 33.9 pg (25-34); Mean Corpuscular Hgb Conc 33.7 g/dL (32-36); Mean Corpuscular Volume 100.7 fL (80-100); Mean Platelet Volume 8.6 fL (7.4-10.4); Platelet Count 407 K/uL (130-400); RDW Coefficient of Variation 16.3 % (11.5-14.5); RDW Standard Deviation 59.9 fL (36.4-46.3); Red Blood Count 2.71 M/uL (4.7-6.1); White Blood Count 3.99 K/uL (4.8-10.8)
[2020-10-22] MEDS ORDERED: Nursing to Pharmacy Communication SCH (07:30)
[2020-10-22 07:34] LABS: Partial Thromboplastin Ratio 2.7
[2020-10-22 07:39] LABS: Partial Thromboplastin Time 70.5 Seconds (21.0-31.0)
[2020-10-22 07:46] LABS: Albumin Level 2.7 gm/dl (3.4-5.0); BUN Creatinine Ratio 3.2 (10-20); Calcium 8.7 mg/dl (8.5-10.1); Creatinine Clr Calc Pharmacy 145.2 ml/min; Est GFR (African American) 130.4; Est GFR (Non-African American) 112.5; Magnesium 1.7 mg/dl (1.8-2.4); Potassium 3.3 mmol/L (3.5-5.1)
[2020-10-22 07:49] LABS: Albumin Globulin Ratio 0.9 (0.9-2); Bilirubin,Total 0.3 mg/dl (0.2-1); Globulin 2.9 gm/dl (2.5-4.0); Total Protein 5.6 gm/dl (6.4-8.2)
--- NOTE | 2020-10-22 09:10 | Gastroenterology Progress Note ---
Date of Service October 22, 2020 Assessment & Plan (1) Nausea & vomiting: -Initiate Protonix 40 mg BID -EGD on 10/23/20 for further evaluation -Continue anti-emetic therapy; Consider utilizing this on a standing schedule when discharged as patient reports he has no nausea & vomiting while hospitali zed, but it returns when he goes home. Admission and Anticipated Discharge Date Admission Date: October 19, 2020 Subjective Patient is a 60 yo male with nausea & vomiting. He underwent an upper GI study that indicated esophageal dysmotility. There were no obvious strictures or le sions. He notes that he is frustrated because his nausea & vomiting stops when he is hospitalized, but returns when he returns home. He has never had an EGD and would like to proceed. Upon review of the med list, it does not appear he is taking a PPI inpatient. Review of Systems Constitutional: no fever and no chills Respiratory: no cough and no dyspnea Cardiovascular: no chest pain Gastrointestinal: no abdominal pain, no nausea and no vomiting melena once in ED per patient Physical Exam Constitutional: well developed Respiratory: normal respiratory effort Cardiovascular: Extremities: no edema Gastrointestinal (Abdomen): normal bowel sounds, soft, nontender, no hepatosplenomegaly Musculoskeletal: Head/Neck/Chest: normocephalic Psychiatric: A+Ox3, euthymic affect Results & Data Results & Data ([facility]) Vital Signs (Past 12 Hours) Vital Signs Temp Pulse Resp BP Pulse Ox 10/22/20 07:08 36.5 C 69 16 123/75 93 10/21/20 22:31 36.8 C 80 18 125/71 94 10/21/20 22:09 36.5 C 88 16 135/82 94 PG Care Time/CCT Total # of Minutes Spent Total Time Spent with Patient: Total time spent is greater than 50% in coordination of care (as documented) at patient's floor/unit and/or counseling patient: Coding Level of Care Code 36872 Subseq Hosp Care Lvl 3 Diagnoses Nausea & vomiting R11.2
[2020-10-22] MEDS: POTASSIUM CHLORIDE / WTR 10 MEQ/100 ML PLCT IV SCH ×4 (10:02→13:50)
[2020-10-22] MEDS: MAGNESIUM SULFATE / D5W 1 GM/100 ML BAG IV SCH ×2 (10:02→12:33)
[2020-10-22] MEDS: GABAPENTIN 300 MG CAP PO SCH ×2 (10:03→20:48)
[2020-10-22] MEDS: FAMOTIDINE 20 MG in SYRINGE 3 ML IV SCH (10:08)
[2020-10-22] MEDS: PANTOprazole 40 MG TAB PO SCH ×2 (12:49→21:00)
[2020-10-22 14:45] LABS: Partial Thromboplastin Ratio 2.6
[2020-10-22 15:07] LABS: Partial Thromboplastin Time 68.2 Seconds (21.0-31.0)
--- NOTE | 2020-10-22 15:26 | Hospitalist Progress Note ---
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 - Presently on full liquids diet with continued mild symptoms. - GI planning for EGD tomorrow. Will hold heparin early in the AM. (2) Dysphagia: As above (3) Bilateral pulmonary embolism: Diagnosed 08/23/20. - Continue with heparin drip for now. Will be held 6 hours prior to any planned procedure. (4) Pancoast tumor of left lung: - Continue 100 mcg fentanyl patch. - Hold oral morphine is unable to reliable take p.o. intake. - Continue Dilaudid for breakthrough pain. - Okay to take Flexeril at night if patient able (5) COPD (chronic obstructive pulmonary disease): No acute exacerbation. - Albuterol nebulizer as needed (6) GERD (gastroesophageal reflux disease): - Switched oral omeprazole to famotidine 20 mg IV daily. (7) Glaucoma: - Continue latanoprost 1 drop both eyes at bedtime Admission and Anticipated Discharge Date Admission Date: October 19, 2020 Subjective Still with some symptoms today. No major change. Reports no fevers/chills, chest pain, shortness of breath, abdominal pain. Physical Exam Constitutional: WD/WN, vitals as above Eyes: EOM intact bilaterally; no conjunctival abnormality ENMT: external ear and nose normal, oropharynx normal Neck: trachea midline, no thyromegaly normal visual inspection Respiratory: normal respiratory effort, lungs clear to auscultation no respiratory distress Cardiovascular: RRR, no murmur, no edema Gastrointestinal (Abdomen): Inspection/Auscultation: abdomen normal to inspection; abdomen not distended Percussion/Palpation: abdomen soft; abdomen nontender, no guarding and abdomen not rigid Musculoskeletal: no cyanosis or clubbing, extremities motor strength 5/5 Skin: no rashes, warm and dry Neurologic: moves all extremities and awake Psychiatric: Orientation: alert, oriented to person and cooperative Results & Data Results & Data ([facility]) Vital Signs (Past 12 Hours) Vital Signs Temp Pulse Resp BP BP Pulse Ox 10/22/20 14:36 36.8 C 84 16 122/83 94 10/22/20 07:08 36.5 C 69 16 123/75 93 PG Care Time/CCT Total # of Minutes Spent Total Time Spent with Patient: Total time spent is greater than 50% in coordination of care (as documented) at patient's floor/unit and/or counseling patient: Coding Level of Care Code 23379 Subseq Hosp Care Lvl 2 Diagnoses Nausea & vomiting R11.2 Vomiting Intractability: intractable Vomiting type: unspecified Dysphagia R13.10 Dysphagia type: unspecified Bilateral pulmonary embolism I26.99 Pancoast tumor of left lung C34.12 COPD (chronic obstructive pulmonary disease) J43.9 COPD type: emphysema Emphysema type: unspecified GERD (gastroesophageal reflux disease) K21.9 Glaucoma H40.9 Glaucoma type: unspecified Laterality: bilateral (1) Nausea & vomiting Vomiting Intractability: intractable Vomiting type: unspecified Qualified Code(s): R11.2 - Nausea with vomiting, unspecified (2) Dysphagia Dysphagia type: unspecified Qualified Code(s): R13.10 - Dysphagia, unspecified (3) COPD (chronic obstructive pulmonary disease) COPD type: emphysema Emphysema type: unspecified Qualified Code(s): J43.9 - Emphysema, unspecified (4) Glaucoma Glaucoma type: unspecified Laterality: bilateral Qualified Code(s): H40.9 - Unspecified glaucoma
[2020-10-22] MEDS: CYCLOBENZAPRINE HCL 10 MG TAB PO SCH (20:48)
[2020-10-22] MEDS: LATANOPROST 0.005% OP SOLN 2.5 ML BTL OPB SCH (20:49)
[2020-10-22] MEDS: fentaNYL 100 MCG/HR TDSY TD SCH (20:50)
[2020-10-22 22:01] LABS: Partial Thromboplastin Ratio 2.2
[2020-10-22 22:04] LABS: Partial Thromboplastin Time 58.7 Seconds (21.0-31.0)
[2020-10-23] MEDS: CHECK fentaNYL PATCH PLACEMENT SCH ×2 (00:37→07:56)
[2020-10-23] MEDS: LACTATED RINGER'S 1,000 ML IV SCH (05:10)
[2020-10-23 06:39] LABS: Basophils # (auto) 0.03 K/uL (0-0.2); Basophils % (auto) 0.7 %; Eosinophils # (auto) 0.09 K/uL (0-0.5); Hematocrit (blood only) 28.1 % (42-52); Hemoglobin 9.5 g/dL (14.0-18.0); Immature Granulocytes # (auto) 0.02 K/uL (0.00-0.02); Immature Granulocytes % (auto) 0.5 %; Lymphocytes # (auto) 0.84 K/uL (1.2-3.4); Mean Corpuscular Hemoglobin 34.2 pg (25-34); Mean Corpuscular Hgb Conc 33.8 g/dL (32-36); Mean Corpuscular Volume 101.1 fL (80-100); Mean Platelet Volume 8.6 fL (7.4-10.4); Monocytes # (auto) 0.73 K/uL (0.11-0.59); Monocytes % (auto) 16.5 %; Neutrophils # (auto) 2.71 K/uL (1.4-6.5); Neutrophils % (auto) 61.3 %; Platelet Count 404 K/uL (130-400); RDW Standard Deviation 59.5 fL (36.4-46.3); Red Blood Count 2.78 M/uL (4.7-6.1); White Blood Count 4.42 K/uL (4.8-10.8)
[2020-10-23 06:58] LABS: Partial Thromboplastin Ratio 2.1
[2020-10-23 07:10] LABS: Partial Thromboplastin Time 56.2 Seconds (21.0-31.0)
[2020-10-23 07:21] LABS: BUN Creatinine Ratio 3.1 (10-20); Calcium 8.7 mg/dl (8.5-10.1); Creatinine Clr Calc Pharmacy 137.7 ml/min; Est GFR (African American) 127.5; Magnesium 1.7 mg/dl (1.8-2.4); Phosphorus 4.1 mg/dl (2.5-4.9)
[2020-10-23] MEDS: FAMOTIDINE 20 MG in SYRINGE 3 ML IV SCH (07:58)
[2020-10-23] MEDS: GABAPENTIN 300 MG CAP PO SCH (07:59)
--- NOTE | 2020-10-23 10:09 | History & Physical Bridge Note ---
Date of Service October 23, 2020 History & Physical Bridge Note I have examined the patient, reviewed the History & Physical and in the interval since the performance of the History & Physical I have noted the following changes of clinical significance: no changes noted. Patient has been NPO since prior to midnight. He denies nausea & vomiting at present. H/H 9.5/28.1. Heparin gtt was stopped this AM. Keep NPO, continue to hold Heparin, & proceed with EGD today. Supervising Physician Co-Signing Physician Notes Agree with GO Samuels as above Abd: Soft, NT, ND, +BS Patient states no significant dysphagia at present Continue current therapy Proceed with EGD today.
[2020-10-23] MEDS: HEPARIN SODIUM/DEXTROSE 25,000 UNITS/500 ML BAG IV SCH (13:15)
--- NOTE | 2020-10-23 14:28 | Anesthesiology Consultation ---
Date of Service October 23, 2020 Assessment & Plan Chart Review Chart Review: Acceptable Risk for Surgery Consults Requested none ASA ASA3 Proposed Anesthesia Anesthesia Type: MAC Risk / Benefits Reviewed With: PT / POA / Parent / Guardian, Accepts Plan and Informed Consent Obtained History Surgery Operation Date: 10/23/20 16:30 Proposed Procedures p Esophagogastroduodenoscopy Dr Deion Albarran, DO Height/Weight Height: 5 ft 10 in Weight: 72.8 kg Allergies Allergy/AdvReac Type Severity Reaction Status Date / Time No Known Allergies Allergy Verified 10/19/20 15:39 Medications Home Medications Medication Instructions Recorded Confirmed Last Taken latanoprost 1 drp OPB HS 04/25/19 10/19/20 08/22/20 omeprazole 20 mg PO QAM 04/25/19 10/19/20 08/23/20 acetaminophen [Tylenol 8 Hour] 650 mg PO DIRECTED PRN 01/14/20 10/19/20 0 01/28/20 21:00 cyclobenzaprine 10 mg PO HS 06/11/20 10/19/20 08/22/20 gabapentin 300 mg capsule 300 mg PO BID cap 08/05/20 10/19/20 10/18/20 dexamethasone 4 mg PO Q8 PRN 08/07/20 10/19/20 Unknown apixaban [Eliquis] 5 mg PO BID #60 tab 08/24/20 10/19/20 Unknown naloxone 4 mg/actuation nasal spray 4 mg INTRANASAL Q2M PRN 08/27/20 10/19/20 Unknown morphine 15 mg immediate release 15 mg PO Q6H PRN #45 tab 10/14/20 10/19/20 Unknown tablet fentanyl 100 mcg/hr transdermal 1 patch TRANSDERMAL Q72H #10 ea 10/17/20 10/19/20 Unknown patch Active Medications Generic Name Dose Route Start Last Admin Trade Name Freq PRN Reason Stop Dose Admin Acetaminophen 650 mg 10/21/20 04:15 10/22/20 11:10 Acetaminophen 325 Mg Tab PO 11/20/20 04:14 650 mg Q4H PRN Administration pain or fever Cyclobenzaprine HCl 10 mg 10/19/20 21:00 10/22/20 20:48 Cyclobenzaprine Hcl 10 Mg Tab PO 11/18/20 20:59 10 mg HS TRAMAINE Administration Fentanyl 100 mcg 10/19/20 20:03 10/22/20 20:50 Fentanyl 100 Mcg/Hr Tdsy TD 11/02/20 20:02 100 mcg Q72H TRAMAINE Administration Gabapentin 300 mg 10/19/20 21:00 10/23/20 07:59 Gabapentin 300 Mg Cap PO 11/18/20 20:59 300 mg BID TRAMAINE Administration Hydromorphone HCl 0.5 mg 10/20/20 03:10 10/20/20 09:58 Hydromorphone Inj 0.5 Mg/0.5 Ml Syr IV 11/02/20 20:02 0.5 mg Q4H PRN Administration severe breakthrough pain Promethazine HCl 12.5 mg/ 50.5 mls @ 202 mls/hr 10/19/20 20:03 10/19/20 21:03 Sodium Chloride IV 11/18/20 20:02 Infused Q6H PRN Infusion Nausea And Vomiting Lactated Ringer's 1,000 mls @ 75 mls/hr 10/19/20 22:30 10/23/20 05:10 Lr IV 11/18/20 22:29 75 mls/hr .[id number] TRAMAINE Administration Famotidine 20 mg/ Syringe 5 mls @ 2.5 mls/min 10/20/20 09:00 10/23/20 07:58 IV 11/19/20 08:59 2.5 mls/min QAM TRAMAINE Administration Latanoprost 1 drops 10/19/20 21:00 10/22/20 20:49 Latanoprost 0.005% Op Soln 2.5 Ml Btl OPB 11/18/20 20:59 1 drops HS TRAMAINE Administration Miscellaneous 1 ea 10/22/20 20:03 10/22/20 20:50 Fentanyl Patch Remove & Waste N/A 11/21/20 20:02 1 ea Q3D TRAMAINE Administration Miscellaneous 1 ea 10/20/20 00:00 10/23/20 07:56 Check Fentanyl Patch Placement N/A 11/19/20 00:00 1 ea QS TRAMAINE Administration Morphine Sulfate 15 mg 10/20/20 03:08 10/20/20 18:12 Morphine Sulfate Ir 15 Mg Tab (Immediate Release) PO 11/03/20 03:07 15 mg Q6H PRN Administration pain Pantoprazole Sodium 40 mg 10/22/20 09:15 10/22/20 21:00 Pantoprazole 40 Mg Tab PO 11/21/20 09:14 Not Given BID TRAMAINE NPO Date Last Intake of Fluids: 10/23/20 Time Last Intake of Fluids: 11:59 Last Intake of Fluids Comment: 6 oz coffee Date Last Intake of Solids: 10/22/20 Time Last Intake of Solids: 23:59 Past Medical History Medical History Anxiety Bilateral pulmonary embolism Cervical disc disease prescribed prednisone taper x6 days- to be completed approximately 01/20 Chronic anticoagulation Consciousness alteration COPD (chronic obstructive pulmonary disease) stable DVT (deep venous thrombosis) GERD (gastroesophageal reflux disease) controlled Glaucoma History of migraine HTN (hypertension) Malignant neoplasm of upper lobe, left bronchus or lung Pancoast tumor Tobacco abuse Weakness of left upper extremity Exercise / Class Metabolic Activity III < 4 Walking/Shop/Light housework Past Family History Family History Father Cancer Myocardial infarction Grandmother (Maternal) Cancer Other Asthma Diabetes Heart disease Past Surgical History Surgical History History of eyelid surgery History of surgery mult benign tumors removed from neck History of surgery benign growth removed from RLE History of tooth extraction History of vocal cord polypectomy S/P cervical spinal fusion Past Anesthesia History No Hx of Anesthesia Complications and No Family Hx of Anesthesia Complications History of PONV No Hx of PONV and No Hx of Motion Sickness Social History Smoking Status: Current every day smoker tobacco type: cigarettes Smoking cigarettes per day: 1.5 pack per day. Do You Dip or Chew Tobacco: No Hx Alcohol Use: No Hx Substance Use: No substance use type: does not use Physical Exam Vital Signs Last Vital Signs Temp 36.5 C 10/23/20 15:03 Pulse 80 10/23/20 15:03 Resp 20 10/23/20 15:03 BP 163/96 H 10/23/20 15:03 Pulse Ox 95 10/23/20 15:03 ENMT Mouth: + edentulous; no TMJ abnormality Thyromental Distance: > or= 3.5 Finger Breadths Mallampati Class: II Neck normal visual inspection and trachea midline; neck extension not limited Respiratory normal respiratory effort Auscultation: lungs clear to auscultation bilaterally and + diminished lung sounds Cardiovascular Rate/Rhythm: regular rate and regular rhythm Heart Sounds: no murmur Musculoskeletal Spine: normal cervical ROM Extremities: full ROM of extremities Neurologic moves all extremities Psychiatric Orientation: alert and oriented x 3 Testing Laboratory Results 10/23/20 06:23 10/23/20 06:23 PT 11.0 Seconds (9.0-12.0) 10/19/20 15: INR 1.1 (0.9-1.1) 10/19/20 15: APTT 56.2 Seconds (21.0-31.0) H* 10/23/20 06:23 Urine Color Yellow 10/20/20 06:12 Urine Appearance Clear (Clear) 10/20/20 06:12 Urine pH 7.5 (4.5-7.5) 10/20/20 06:12 Ur Specific [place] 1.030 (1.000-1.030) 10/20/20 06:12 Urine Protein Negative (Negative) 10/20/20 06:12 Urine Glucose (UA) Negative (Negative) 10/20/20 06:12 Urine Ketones Negative (Negative) 10/20/20 06:12 Urine Nitrite Negative (Negative) 10/20/20 06:12 Ur Leukocyte Esterase Negative (Negative) 10/20/20 06:12 Urine WBC (Auto) 1-5 /hpf (0-5) 10/20/20 06:12 Urine RBC (Auto) 0-4 /hpf (0-4) 10/20/20 06:12 U Hyaline Cast (Auto) 0 /lpf (0-5) 10/20/20 06:12 U Epithel Cells (Auto) 5-10 /lpf (0-5) H 10/20/20 06:12 Urine Bacteria (Auto) Negative (Negative) 10/20/20 06:12 Blood Type O Positive 10/19/20 15:21 Antibody Screen NEGATIVE 10/19/20 15:21 10/19/20 COVID PCR neg Electrocardiogram Date: 10/19/20 Findings: + NSR @ (79) Chest X-Ray Date: 10/19/20 1. Stable biapical opacities 2. No acute findings. No evidence of acute parenchymal consolidation Other Testing 10/19/20 CT ANGIOGRAM OF THE CHEST CLINICAL HISTORY: Shortness of breath, vomiting, metastatic carcinoma. Possible acute pulmonary embolism COMPARISON STUDY: 08/23/2020 TECHNIQUE: Following the IV administration of 119 mL of Optiray, CT angiogram of the thorax was performed from the thoracic inlet to the lung bases utilizing the pulmonary embolus protocol. Images are reviewed in the axial, sagittal, and coronal planes. IV contrast was administered without complication. MIP imaging was performed. A dose lowering technique was utilized adhering to the principles of ALARA. CT DOSE: 1847.74 mGy.cm FINDINGS: There is interval decrease in the size of the previously identified left hilar mass There was no evidence of thoracic aortic dilatation. There were no pulmonary artery filling defects to indicate acute pulmonary embolism. No pleural effusions are visualized. There is a persistent left apical mass with secondary underlying second rib destruction. There is evidence for interval rib healing when compared the prior study the left apical mass appears slightly smaller than on the prior study. The mass measures 37 mm in greatest diameter. There is severe underlying emphysema. There is right apical pleural thickening/scarring. There is stable 5 mm right middle lobe pulmonary nodule. There is a stable 6 mm right lower lobe pulmonary nodule there is a stable 2.5 mm right apical pulmonary nodule. There is a stable 4 mm left upper lobe pulmonary nodule. There is a stable subpleural 4 mm left lower lobe pulmonary nodule. There is a stable 3 mm right lower lobe pulmonary nodule. There is a stable subpleural 4 mm right middle lobe pulmonary nodule IMPRESSION: 1. No evidence of acute pulmonary embolism 2. Slight interval decrease in the size of the left apical pulmonary mass with partial interval healing of an underlying destructive left second rib lesion. 3. Interval decrease in the size of the left hilar mass 4. Severe pulmonary emphysema 5. Stable subcentimeter pulmonary nodules
[2020-10-23] MEDS ORDERED: LIDOCAINE HCL 2% 2 ML VIAL/AMP(20MG/ML) INFIL ONE (15:52)
[2020-10-23] MEDS ORDERED: PROPOFOL IV EMULSION 10 MG/ML 20 ML VIAL IV ONE (15:52)
--- NOTE | 2020-10-23 15:55 | Anesthesiology Progress Note ---
Date of Service October 23, 2020 Anesthesia Post Procedure Vital Signs Vital Signs: Temp Pulse Resp BP BP Pulse Ox 10/23/20 15:03 36.5 C 80 20 163/96 H 95 10/23/20 14:52 36.9 C 91 H 18 136/87 96 10/23/20 08:25 36.5 C 53 L 18 145/88 H 97 10/23/20 07:24 36.5 C 95 H 20 146/91 H 94 10/22/20 23:54 36.7 C 88 18 142/82 H 93 Pain Intensity Neck: Pain Intensity: 6 Transfer of Care Handoff Completed per policy Notes Mental Status: alert / awake / arousable Patient Amnestic to Procedure: Yes Nausea / Vomiting: adequately controlled Pain: adequately controlled Airway Patency, RR, SpO2: stable & adequate BP & HR: stable & adequate Hydration State: stable & adequate Anesthetic Complications: no major complications apparent and Pt Satisfied with anesthetic care
[2020-10-23 15:59] VITALS: TEMP 97.2; O2SAT 96
--- NOTE | 2020-10-23 15:59 | GI REPORT ---
Patient Name: Kris Butler Procedure Date: 10/23/2020 3:20 PM Date of : 1960 Admit Type: Inpatient Age: 60 Gender: Male Attending MD: Rl Albarran DO Procedure: Upper GI endoscopy Providers: Rl Albarran DO Referring MD: Dale Herrera Md Indications: Dysphagia, Nausea with vomiting Medicines: Monitored Anesthesia Care Complications: No immediate complications. Estimated Blood Loss: Estimated blood loss: none. Procedure: Pre-Anesthesia Assessment: - Prior to the procedure, a History and Physical was performed, and patient medications and allergies were reviewed. The patient's tolerance of previous anesthesia was also reviewed. The risks and benefits of the procedure and the sedation options and risks were discussed with the patient. All questions were answered, and informed consent was obtained. Prior Anticoagulants: The patient last took Eliquis (apixaban) 4 days prior to the procedure and last took heparin on the day of the procedure. ASA Grade Assessment: III - A patient with severe systemic disease. After reviewing the risks and benefits, the patient was deemed in satisfactory condition to undergo the procedure. After obtaining informed consent, the endoscope was passed under direct vision. Throughout the procedure, the patient's blood pressure, pulse, and oxygen saturations were monitored continuously. The Endoscope was introduced through the mouth, and advanced to the second part of duodenum. The upper GI endoscopy was accomplished without difficulty. The patient tolerated the procedure well. Findings: LA Grade A (one or more mucosal breaks less than 5 mm, not extending between tops of 2 mucosal folds) esophagitis with no bleeding was found. Biopsies were taken with a cold forceps for histology. A small hiatal hernia was present. The examined duodenum was normal. Impression: - LA Grade A reflux esophagitis. Biopsied. - Small hiatal hernia. - Normal examined duodenum. Recommendation: - Return patient to [facility] for ongoing care. - Advance diet as tolerated. - Await pathology results. - Return to primary care physician as previously scheduled. Rl Albarran DO 10/23/2020 3:59:43 PM This report has been signed electronically. Note Initiated On: 10/23/2020 3:20 PM Number of Addenda: 0 I attest to the content of the Intraoperative Record and orders documented therein, exceptions below {[id number]}
[2020-10-23 16:23] VITALS: PULSE 81
--- NOTE | 2020-10-23 16:36 | Discharge Summary ---
Date of Service October 23, 2020 Admission HPI Per Admitting Provider Kris Butler is a 60-year-old male with Pancoast tumor currently on chemotherapy (prior radiation) who presents to the ER with nausea, vomiting severe for the last 5 days. He reports this is been going on intermittently since his second round of chemotherapy (5 weeks in total) however much worse over the last 5 days with very limited oral intake and not taking his regular medications as unable to keep them down. He denies any odynophagia but reports significant dysphagia with food/liquids come straight back prior to getting into his stomach. He has been [facility] but his nutrition is extremely poor. He has now had 3 rounds of chemotherapy with the last one on September 30. The patient reports Dr Su wanted to admit him on Wednesday but he had a court date to adopt his grandchildren on Wednesday therefore was going to have a subsequent appointment this coming Wednesday for potential direct admission but felt too unwell to make it till then. He reports not currently on steroids. In the ER CT head/chest/abdomen/pelvis was relatively unremarkable for a cause for his nausea and vomiting. He was referred to medicine for admission and ongoing management of nausea and vomiting in the setting of metastatic disease. Principal Diagnosis Nausea and vomiting -> Possibly esophagitis Discharge Exam Constitutional WD/WN, vitals as above Eyes EOM intact bilaterally; no conjunctival abnormality ENMT external ear and nose normal, oropharynx normal Neck trachea midline, no thyromegaly normal visual inspection Respiratory normal respiratory effort, lungs clear to auscultation no respiratory distress Cardiovascular RRR, no murmur, no edema Gastrointestinal (Abdomen) Inspection/Auscultation: abdomen normal to inspection; abdomen not distended Percussion/Palpation: abdomen soft; abdomen nontender, no guarding and abdomen not rigid Musculoskeletal no cyanosis or clubbing, extremities motor strength 5/5 Skin no rashes, warm and dry Neurologic moves all extremities and awake Psychiatric Orientation: alert, oriented to person and cooperative Discharge Data Allergies Allergy/AdvReac Type Severity Reaction Status Date / Time No Known Allergies Allergy Verified 10/19/20 15:39 Consultations 10/19/20 17:00 ED Decision to Admit Stat 10/19/20 17:55 Consult Gastroenterology Routine Procedures Performed Operation Date: 10/23/20 16:30 Actual Procedures p EGD Biopsy Cytology - Rl Albarran, DO Ordered Studies 10/19/20 15:02 CT abd pelvis IV con only Stat CT angio chest PE protocol Stat CT head/brain wo con Stat 10/21/20 09:32 FL GI series Routine Hospital Course (1) Nausea & vomiting: From history, suspected he has a degree of esophageal stenosis from the radiation, but this was not seen on barium swallow. - Overall mild symptoms while in the hospital. In the hospital, he reported symptoms improve because he is "less stressed" than at home. - EGD on 10/23 showed only esophagitis. Will discharge on PPI PO BID and Reglan ACHS PRN for nausea. (2) Dysphagia: As above (3) Bilateral pulmonary embolism: Diagnosed 08/23/20. - On heparin while inpatient; return to apixaban on discharge. (4) Pancoast tumor of left lung: - Continue 100 mcg fentanyl patch. - Return to oral morphine on discharge. - Continue Flexeril (5) COPD (chronic obstructive pulmonary disease): No acute exacerbation. - Albuterol nebulizer as needed (6) GERD (gastroesophageal reflux disease): - PPI PO BID as above (7) Glaucoma: - Continue latanoprost 1 drop both eyes at bedtime Total Time Total Time Spent Total Time Spent (In Minutes): 35 Discharge Plan Discharge Items Patient Disposition: Home - Self-Care Reason For Visit: cancer related pain nausea vomiting Discharge Diagnosis: Nausea and vomiting Activity: Resume your previous activity Non-emergency contact: Primary Care Provider Call non-emergency contact if: your symptoms worsen Follow-up/Referrals: Gerard Barnes [Primary Care Provider] - Diet: Regular Diet Texture: Mechanical soft (ground) Addtl Attending Provider Instructions: Mr. Butler, You were admitted to the hospital with nausea and vomiting. We did some testing, and we did not see any stenosis in the esophagus. We did an EGD which showed esophagitis (irritation of the lining of the esophagus) which may be from the prior radiation. Given the persistent nausea, we are sending you out with a new nausea medication. We are also sending you out with a stomach acid blocking medication to take twice a day for the next month. Pending Studies at Discharge: No Stand-Alone Forms: [facility] [employer], Smoking Cessation Medications and DC Order Prescriptions: New pantoprazole 40 mg Tablet,Delayed Release (Dr/Ec) 40 mg PO BID Qty: 60 RF: 0 metoclopramide HCl [Reglan] 10 mg tablet 10 mg PO ACHS PRN (Reason: nausea and vomiting) Qty: 60 RF: 0 Continued Narcan 4 mg/actuation spray,non-aerosol 4 mg intranasal Q2M PRN (Reason: Opioid Reversal) RF: 0 gabapentin 300 mg capsule 300 mg PO BID RF: 0 fentanyl 100 mcg/hr patch 72 hour 1 patch transdermal Q72H Qty: 10 RF: 0 morphine 15 mg tablet 15 mg PO Q6H PRN (Reason: pain) Qty: 45 RF: 0 latanoprost 0.005 % drops 1 drp OPB HS RF: 0 acetaminophen [Tylenol 8 Hour] 650 mg Tablet Extended Release 650 mg PO DIRECTED PRN (Reason: Pain) RF: 0 dexamethasone 4 mg Tablet 4 mg PO Q8 PRN (Reason: NEEDED) RF: 0 cyclobenzaprine 10 mg tablet 10 mg PO HS RF: 0 Eliquis 5 mg Tablet 5 mg PO BID Qty: 60 RF: 0 Discontinued omeprazole 20 mg capsule,delayed release(DR/EC) 20 mg PO QAM RF: 0 Discharge Orders: Discharge Order (Routine); Ordered 10/23/20 Ordered By: Dale Somers/Other Patient Handouts: Self-Care for Vomiting and Diarrhea Admission Data Admit Date/Time: 10/19/20 17:42 Attending Provider: Dale Herrera Admit Provider: Giovani hCen Primary Care Provider: Gerard Barnes Other Providers: Johan Lux ; Dale Herrera ; [facility] Other Interventions: Discharge Summary Assessment (RN) Last Done: 10/23/20 16:01 Coding Level of Care Code D/C Day Management >30 mins Diagnoses Nausea & vomiting R11.2 Vomiting Intractability: intractable Vomiting type: unspecified Dysphagia R13.10 Dysphagia type: unspecified Bilateral pulmonary embolism I26.99 Pancoast tumor of left lung C34.12 COPD (chronic obstructive pulmonary disease) J43.9 COPD type: emphysema Emphysema type: unspecified GERD (gastroesophageal reflux disease) K21.9 Glaucoma H40.9 Glaucoma type: unspecified Laterality: bilateral
[2020-10-23 16:38] VITALS: BP 146/91
== END 2020-10-23 17:30 | disposition hospice, home (50) | DRG 391 ==
LOC: ED 14:30 → SUATTDRO 17:42 → 3N 17:42